=== PATIENT | male | born 1940 | race Caucasian/White ===

== ENCOUNTER 2017-03-14 11:45 | Inpatient (IN) | payer MEDICARE, OTHER ==
[2017-03-14] MEDS ORDERED: Metoprolol Tartrate 5 MG/5 ML SDV IVPUSH ONE ×2 (11:50→13:42)
[2017-03-14] MEDS ORDERED: Famotidine 20 MG/2 ML SDV IVPUSH ONE (11:50)
--- NOTE | 2017-03-14 11:50 | EDM.PDOC ---
ED HPI GENERAL MEDICAL PROBLEM - General Chief Complaint: Cardiovascular Problem Stated Complaint: atrial flutter Time Seen by Provider: 03/14/17 11:50 Source of Information: Reports: Patient, Old Records ([facility] chart/EMR), Other (Limited records from [facility]) History Limitations: Reports: No Limitations - History of Present Illness INITIAL COMMENTS - FREE TEXT/NARRATIVE: The patient was brought to the emergency room via private automobile from clinic nurse from [facility] for evaluation of apparent intermittent tachycardia and nonspecific fatigue, which has been present for about one week. He was evaluated by his regular provider, Anita Benton PA-C, at [facility], with EKG in their facility but no other treatment provided. She did apparently consult the manufacturing shift supervisor who recommended emergency room evaluation and possible admission. Heart rate was in the 70s in their facility with Norvasc apparently discontinued by unknown provider quite some time ago by patient history. He denies any other history of medication noncompliance. The patient denies any chest pain/pressure,dizziness, orthostasis , orthopnea, diaphoresis, paresthesias, or any other anginal-type symptoms. No recent history of abdominal pain, heartburn, nausea, diarrhea, melena, gross hematochezia, or any food intolerance, including fatty foods, etc.. The patient also denies any recent fever, cough, wheezing, dyspnea, etc.. His above symptoms have become somewhat worse since the evening of 03/11. He denies any true pain or discomfort. Onset: Gradual Onset Date: 03/11/17 Duration: Week(s): (Otherwise as above) Location: Reports: Other (No pain) Quality: Reports: Same as Previous Episode Improves with: Reports: None Worsens with: Reports: None Context: Reports: Other (As above) Associated Symptoms: Reports: Other (Nonspecific fatigue as above). Denies: Confusion, Chest Pain, Cough, cough w sputum, Diaphoresis, Fever/Chills, Headaches, Loss of Appetite, Malaise, Nausea/Vomiting, Seizure, Shortness of Breath, Syncope - Related Data Allergies Allergy/AdvReac Type Severity Reaction Status Date / Time No Known Allergies Allergy Verified 02/03/15 17:32 Home Meds: Home Meds Acetaminophen 1,000 mg PO Q6H PRN 03/14/17 [History] Aspirin [Halfprin] 81 mg PO DAILY 03/14/17 [History] Docusate Sodium 250 mg PO DAILY 03/14/17 [History] Furosemide 20 mg PO WITHDINNER 03/14/17 [History] Furosemide 40 mg PO QAM 03/14/17 [History] Metoprolol Succinate [Toprol XL] 50 mg PO BEDTIME 03/14/17 [History] Metoprolol Succinate [Toprol XL] 100 mg PO QAM 03/14/17 [History] Multivitamin [Daily Multiple Vitamin] 1 tab PO DAILY 03/14/17 [History] Nitroglycerin [Nitrostat] 0.4 mg SL ASDIRECTED 03/14/17 [History] Omeprazole 20 mg PO DAILY 03/14/17 [History] Potassium Chloride [Klor-Con 10] 10 meq PO DAILY 03/14/17 [History] Simvastatin [Zocor] 40 mg PO BEDTIME 03/14/17 [History] Warfarin [Coumadin] 2.5 mg PO ASDIRECTED 03/14/17 [History] buPROPion [Wellbutrin SR] 150 mg PO BID 03/14/17 [History] cloNIDine [Catapres] 0.1 mg PO DAILY 03/14/17 [History] Past Medical History HEENT History: Reports: Hard of Hearing, Impaired Vision, Other (See Below) Other HEENT History: Patient wears glasses including reading glasses, bilateral presbycusis no current hearing aid therapy Cardiovascular History: Reports: Afib, Arrhythmia, Bypass, CAD, Heart Failure, High Cholesterol, Hypertension, Other (See Below). Denies: Aneurysm, Blood Clots/VTE/DVT, WI, PTCA, Stents, Syncope Other Cardiovascular History: Sinus tachycardia with first-degree AV block with d-dimer elevation on 02/03/15, with previous first degree AV block and incomplete/ complete right bundle branch block, known previous history of intermittent atrial fibrillation/flutter with current Coumadin therapy Respiratory History: Reports: COPD, Pulmonary Fibrosis, Other (See Below) Other Respiratory History: COPD and pulmonary fibrosis by chest x-ray Gastrointestinal History: Reports: Cholelithiasis, Chronic Constipation, Chronic Diarrhea, Diverticulosis, GERD, Hemorrhoids, Other (See Below). Denies : Celiac Disease, Colon Polyp, Gastritis, GI Bleed, Hepatitis, Hiatal Hernia, Inflammatory Bowel Disease, Irritable Bowel Syndrome, Jaundice, Pancreatitis, PUD Other Gastrointestinal History: Chronic constipation with previous history of Chronic diarrhea with occasional 45 bowel movements per day, diverticulosis by colonoscopy hemorrhoids with chronic mild gross hematochezia, duodenal diverticulum by EGD, LFTs elevation and hyperbilirubinemia on 02/03/15 with possible history of fatty liver Genitourinary History: Reports: BPH, Urinary Incontinence. Denies: Acute Renal Failure, Chronic Renal Insuffiency, Renal Calculus, STD, UTI, Recurrent Musculoskeletal History: Reports: Arthritis, Back Pain, Chronic, Fracture, Neck Pain, Chronic, Osteoarthritis, Other (See Below). 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 Denies: Cerebral Aneurysms, CVA, Migraines, MS, Parkinson's, Seizure, TIA Other Neuro History: Concussion on 08/14/12, chronic headaches secondary to previous meningitis Psychiatric History: Reports: Anxiety, Depression, Psych Hospitalization(s), Suicidal Ideation, Other (See Below). Denies: Abuse, Victim of, ADD, ADHD, Addiction, PTSD, Suicide Attempt Other Psychiatric History: Previous mild suicidal ideation with brief hospitalization in the Endocrine/Metabolic History: Reports: None. Denies: Diabetes, Type I, Diabetes , Type II, Hypothyroidism, IDDM Hematologic History: Reports: None, Other (See Below). Denies: Anemia, Blood Transfusion(s) Other Hematologic History: No blood transfusions including with CABG by his history Immunologic History: Reports: None. Denies: AIDS, HIV, SLE Oncologic (Cancer) History: Reports: Other (See Below). Denies: Colon, Hodgkin' s Lymphoma, Leukemia, Lymphoma, Non-Hodgkin's Lymphoma, Prostate Other Oncologic History: Unknown type of skin cancer in the facial region treated with cryotherapy Dermatologic History: Reports: Venous Stasis Dermatitis. Denies: Eczema, Psoriasis - Infectious Disease History Infectious Disease History: Reports: Chicken Pox, Measles, Meningitis (spinal meningitis in the 1970s). Denies: C-Difficile, Mononucleosis, MRSA, Mumps, Pertussis (Whooping Cough), Rubella, Scarlet Fever, Shingles, TB, VRE - Past Surgical History Head Surgeries/Procedures: Reports: None HEENT Surgical History: Reports: Oral Surgery, Other (See Below). Denies: Adenoidectomy, Cataract Surgery, Eye Surgery, Laser Surgery, LASIK, Myringotomy w Tube(s), Naso-Sinus Surgery, Tonsillectomy Other HEENT Surgeries/Procedures: Multiple teeth extractions Cardiovascular Surgical History: Reports: Coronary Artery Bypass, Other (See Below). Denies: Aneurysm, Carotid Stents, Coronary Artery Stent, Percutaneous Transluminal Angioplasty, Varicose Other Cardiovascular Surgeries/Procedures: CABG 4 on 08/19/14 Respiratory Surgical History: Reports: None. Denies: Thoracentesis GI Surgical History: Reports: Cholecystectomy, Colonoscopy, EGD, Other (See Below). Denies: Appendectomy, Hernia, Abdominal, Hernia, Inguinal, Hernia Repair/Other Other GI Surgeries/Procedures: Laparoscopic cholecystectomy on 02/04/15, EGD on 18/04, last colonoscopy on 10/16/08 - Past Imaging History Past Imaging History: Reports: Angiography (Apparent negative heart catheterization in 2016), CAT Scan (CT of the brain on 08/14/12), MRI (MRI of the lumbar spine on 01/28/10), Stress Testing (Low level cardiac stress test on ), Venous Doppler (Left leg on 01/09/14) Social & Family History - Family History HEENT: Reports: None. Denies: Cataract, Glaucoma, Macular Degeneration, Retinal Detachment Cardiac: Reports: CAD, Heart Failure, High Cholesterol, WI, Other (See Below). Denies: Afib, Aneurysm, Arrhythmia, Blood Clots/VTE/DVT, Bypass, Hypertension, Pacemaker, PVD/COD, Stent, Syncope Other Cardiac Family History: Father with fatal WI and CHF likely secondary to renal failure and intolerance of dialysis at age 81, mother with fatal WI at age 79, brother with fatal WI at about age 83, brother with fatal WI in his 70s brother with fatal WI at age 52 mother with hyperlipidemia Respiratory: Reports: None. Denies: COPD, PE, Pneumothorax, Sleep Apnea GI: Reports: None. Denies: Celiac Disease, Colon Polyps, GERD, GI bleed, Inflammatory Bowel Disease, Irritable Bowel Syndrome, PUD : Reports: Dialysis, Renal Disease/Insufficiency, Other (See Below) Other Family History: Father with acute renal failure and unsuccessful dialysis OBGYN: Reports: None Musculoskeletal: Reports: None. Denies: Gout, RA, SLE Neurological: Reports: Alzheimers Disease, Dementia, Other (See Below). Denies : CVA, Migraines, MS, Parkinson's, Seizure, TIA Other Neurological Family History: Sister with fatal with dementia in her 70s Psychiatric: Reports: None. Denies: Abuse, Victim of, ADD, ADHD, Anxiety, Depression, Psych Hospitalization(s), PTSD, Suicide Attempt Endocrine/Metabolic: Reports: Hypothyroidism, Other (See Below). Denies: Diabetes, Type I, Diabetes, type II Other Endocrine/Metabolic Family History: Sister with hypothyroidism Hematologic: Reports: None. Denies: Anemia, SLE Immunologic: Reports: None. Denies: AIDS, HIV, SLE Dermatologic: Reports: None. Denies: Eczema, Psoriasis Oncologic: Reports: Lung, Prostate, Other (See Below). Denies: Colon, Hodgkin' s Lymphoma, Leukemia, Lymphoma, Non-Hodgkin's Lymphoma, Pancreatic, Skin Other Oncologic Family History: Sister with fatal lung cancer in her late 60s with no previous tobacco use, brother with prostate cancer in his 70s however he from an WI as above - Tobacco Use Smoking Status *Q: Never Smoker Tobacco Use Within Last Twelve Months: No Smoking Cessation Information Provided To Patient: No Second Hand Smoke Exposure: No Second Hand Smoke Education Provided: No - Caffeine Use Caffeine Use: Reports: Coffee (Occasional 2 times per month), Soda (3 sodas per week). Denies: Energy Drinks, Tea - Alcohol Use Alcohol Use History: No Days Per Week of Alcohol Use: 0 (No previous DWIs, etc.) Number of Drinks Per Day: 1 (Usually beer on a monthly basis) Total Drinks Per Week: 0 Alcohol Use in Last Twelve Months: Yes Alcohol Use Frequency: Monthly - Recreational Drug Use Recreational Drug Use: No Drug Use in Last 12 Months: No Recreational Drug Type: Denies: Amphetamines (Speed), Cocaine, Inhalants (Glues , Solvents, Aerosols), LSD (Acid), Marijuana/Hashish, Methamphetamine, Morphine - Living Situation & Occupation Living situation: Reports: (1985, 5 children), with Family (13-year- old son) 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 Denies: Fever HEENT: Reports: Hearing Loss (Stable chronic). Denies: Contact Lenses, Dental Pain, Ear Discharge, Ear Pain, Eye Pain, Glasses, Rhinitis, Sinus Problem, Throat Pain, Throat Swelling, Vertigo, Vision Change Respiratory: Reports: No Symptoms. Denies: Shortness of Breath, Wheezing, Pleuritic Chest Pain, Cough Cardiovascular: Reports: Edema (Stable chronic), Palpitations. Denies: Chest Pain, Blood Pressure Problem, Claudication, Dyspnea on Exertion, Lightheadedness , Orthopnea, PND, Syncope Endocrine: Reports: Fatigue GI/Abdominal: Reports: No Symptoms. Denies: Abdominal Pain, Anorexia, Black Stool, Bloody Stool, Constipation, Diarrhea, Decreased Appetite, Difficulty Swallowing, Distension, Flatus, Hematochezia, Melena, Nausea, Stool Incontinence , Vomiting : Reports: No Symptoms. Denies: Discharge, Dysuria, Flank Pain, Frequency, Hematuria, Incontinence, Urgency, Urinary Retention Musculoskeletal: Reports: No Symptoms. Denies: Neck Pain, Shoulder Pain, Arm Pain, Back Pain, Leg Pain Skin: Reports: No Symptoms. Denies: Diaphoresis, Bruising, Wound Neurological: Reports: Numbness (Stable peripheral neuropathy), Paresthesia, Tingling. Denies: Confusion, Dizziness, Headache, Seizure, Syncope, Tremors, Trouble Speaking, Difficulty Walking, Weakness, Gait Disturbance Psychiatric: Reports: No Symptoms. Denies: Agitation, Anxiety, Confusion, Cravings, Depression, Hallucinations, Homicidal Ideation, Suicidal Ideation Hematologic/Lymphatic: Reports: No Symptoms Immunologic: Reports: No Symptoms ED EXAM, GENERAL - Physical Exam Exam: See Below Exam Limited By: No Limitations General Appearance: Alert, WD/WN, No Apparent Distress Eye Exam: Bilateral Eye: EOMI, Normal Inspection (No nystagmus), PERRL Ears: Normal External Exam, Normal Canal, Normal TMs, Hearing Loss (Stable bilateral moderate presbycusis with no hearing aids) Nose: Normal Inspection, Normal Mucosa, No Blood Throat/Mouth: Normal Inspection, Normal Lips, Normal Gums, Normal Oropharynx, Normal Voice, No Airway Compromise. No: Normal Teeth (Multiple missing teeth with no acute caries), Dysphagia, Inflammation, Perioral Cyanosis Head: Atraumatic, Normocephalic. No: Facial Swelling, Facial Tenderness, Sinus Tenderness Neck: Normal Inspection, Supple, Non-Tender, Full Range of Motion, Carotid Bruit (Mild bilateral carotid bruits). No: Limited Range of Motion, Lymphadenopathy (L), Lymphadenopathy (R), Thyromegaly Respiratory/Chest: No Respiratory Distress, Lungs Clear, Normal Breath Sounds, No Accessory Muscle Use, Chest Non-Tender. No: Rales, Pleural Rub, Retractions Cardiovascular: Normal Peripheral Pulses, No Gallop, No JVD, No Murmur, No Rub, Irregularly Irregular. No: Regular Rate, Rhythm, No Edema (Dependent edema as below), Bradycardia, Tachycardia, Diastolic Murmur, Systolic Murmur, Gallop/S3, Gallop/S4, Friction Rub Peripheral Pulses: 4+: Radial (L), Radial (R), Dorsalis Pedis (L), Dorsalis Pedis (R) GI/Abdominal: Normal Bowel Sounds, Soft, Non-Tender, No Organomegaly, No Distention, No Abnormal Bruit, No Mass, Pelvis Stable, Other (Obese) (Male) Exam: Deferred Rectal (Males) Exam: Deferred Back Exam: Normal Inspection, Full Range of Motion. No: CVA Tenderness (L), CVA Tenderness (R), Muscle Spasm Extremities: Normal Range of Motion, Non-Tender, Normal Capillary Refill, Pedal Edema (+1 bilateral pedal/pretibial edema with secondary mild to moderate venous stasis dermatitis). No: No Pedal Edema, Shaniqua's Sign Neurological: Alert, Oriented, CN II-XII Intact, Normal Cognition, Normal Gait, Normal Reflexes (Negative Babinski's), No Motor/Sensory Deficits Psychiatric: Normal Affect, Normal Mood Skin Exam: Warm, Dry, Intact, Normal Color, No Rash. No: Ecchymosis, Lymphangitis, Petechiae, Wound/Incision Lymphatic: No Adenopathy EKG INTERPRETATION EKG Date: 03/14/17 Time: 12:02 Rhythm: A-Flutter (Recurrent/new since last EKG) [place]: Normal (Left cardiac axis) P-Wave: Variable QRS: Other (QRS interval of 0.11 seconds representing an incomplete bifascicular bundle branch block which is a change from previous incomplete right bundle branch block) ST-T: Other (Nonspecific downsloping ST depressions in leads 1, aVL and V6 consistent with possible new lateral wall ischemia) QT: Prolonged (QT/QTc of 426/497) Comparison: Change From Previous EKG (As above since 02/03/15) EKG Interpretation Comments: 1. Possible new wall cardiac ischemia 2. New complete bifascicular bundle-branch block with history of previous incomplete right bundle branch block 3. Atrial flutter Course - Vital Signs Last Recorded V/S: Last Vital Signs Temp 36.5 C 03/14/17 12:00 Pulse 52 L 03/14/17 14:22 Resp 16 03/14/17 14:22 BP 153/87 H 03/14/17 14:22 Pulse Ox 100 03/14/17 14:22 Vital Signs - 24 hr 03/14/17 03/14/17 03/14/17 12:00 12:05 12:15 Temperature [ 36.5 C Temporal] Pulse, 69 Peripheral Pulse, 75 75 Peripheral [ Left Pulse Oximetry] Respiratory 20 18 Rate Blood Pressure 155/84 H Blood Pressure 155/84 H 157/77 H [Left Upper Arm ] O2 Sat by Pulse 99 100 Oximetry 03/14/17 03/14/17 03/14/17 12:30 12:45 13:00 Temperature [ Temporal] Pulse, Peripheral Pulse, 60 61 52 L Peripheral [ Left Pulse Oximetry] Respiratory 14 16 17 Rate Blood Pressure Blood Pressure 144/70 H [Left Upper Arm ] O2 Sat by Pulse 100 100 100 Oximetry 03/14/17 03/14/17 03/14/17 13:15 13:36 13:49 Temperature [ Temporal] Pulse, Peripheral Pulse, 52 L 58 L 64 Peripheral [ Left Pulse Oximetry] Respiratory 17 19 20 Rate Blood Pressure Blood Pressure 135/76 156/84 H 185/83 H [Left Upper Arm ] O2 Sat by Pulse 100 100 100 Oximetry 03/14/17 03/14/17 13:51 14:22 Temperature [ Temporal] Pulse, 63 Peripheral Pulse, 52 L Peripheral [ Left Pulse Oximetry] Respiratory 16 Rate Blood Pressure 185/83 H Blood Pressure 153/87 H [Left Upper Arm ] O2 Sat by Pulse 100 Oximetry - Orders/Labs/Meds Orders: Active Orders 24 hr Category Date Time Status Cardiac Monitoring [RC] . DIRECTED Care 03/14/17 11:50 Active EKG Documentation Completion [RC] ASDIRECTED Care 03/14/17 11:50 Active Oxygen Therapy, ED [RC] CONTINUOUS Care 03/14/17 11:50 Active Peripheral IV Care [RC] . DIRECTED Care 03/14/17 11:50 Active Pulse Oximetry [RC] CONTINUOUS Care 03/14/17 11:50 Active Up With Assistance [RC] PFP Care 03/14/17 11:50 Active Vital Signs [RC] PFP Care 03/14/17 11:50 Active Nothing per Oral Now Diet [DIET] Diet 03/14/17 Breakfast Active Chest 1V Frontal [CR] Stat Exams 03/14/17 11:50 Taken Sodium Chloride 0.9% [Saline Flush] Med 03/14/17 11:50 Active 10 ml FLUSH ASDIRECTED PRN Obtain Past Medical Record [OM.PC] Urgent Oth 03/14/17 11:50 Active Peripheral IV Insertion Adult [OM.PC] Stat Oth 03/14/17 11:50 Ordered Resuscitation Status Stat Resus Stat 03/14/17 11:50 Ordered Medication Orders Sodium Chloride (Saline Flush) 10 ml FLUSH ASDIRECTED PRN PRN Reason: Keep Vein Open Last Admin: 03/14/17 13:25 Dose: 10 ml Admin: 03/14/17 12:06 Dose: 10 ml Labs: Laboratory Tests 03/14/17 03/14/17 03/14/17 Range/Units 12:07 12:07 12:07 WBC 7.8 (4.0-10.2) K/uL RBC 5.32 (4.33-5.41) M/uL Hgb 15.8 (13.1-16.8) g/dL Hct 45.1 (39.0-49.0) % MCV 84.8 D (84.0-98.0) fL MCH 29.7 (28.2-33.3) pg MCHC 35.0 (31.7-36.0) g/dL RDW 14.5 H (11.2-14.1) % Plt Count 138 L (150-350) K/uL Neut % (Auto) 38.6 L (45.0-80.0) % Lymph % (Auto) 49.9 (10.0-50.0) % [place] % (Auto) 9.5 (2.0-14.0) % Eos % (Auto) 1.7 (0.0-5.0) % Baso % (Auto) 0.3 (0.0-2.0) % Neut # (Auto) 3.02 (1.40-7.00) K/uL Lymph # (Auto) 3.89 H (0.50-3.50) K/uL [place] # (Auto) 0.74 (0.00-1.00) K/uL Eos # (Auto) 0.13 (0.00-0.50) K/uL Baso # (Auto) 0.02 (0.00-0.20) K/uL PT 32.4 H D (9.8-11.7) SEC INR 2.9 APTT 37.6 H (23.5-30.0) SEC D-Dimer, Quantitative < 100 (0-400) ng/mL Sodium (136-145) mmol/L Potassium (3.5-5.1) mmol/L Chloride (98-107) mmol/L Carbon Dioxide (21.0-32.0) mmol/L BUN (7-18) mg/dL Creatinine (0.51-1.17) mg/dL Est Cr Clr Drug Dosing Estimated GFR (MDRD) mL/min Glucose (74-106) mg/dL Lactic Acid (0.4-2.0) mmol/L Uric Acid (2.6-7.2) mg/dL Calcium (8.5-10.1) mg/dL Magnesium (1.8-2.4) mg/dL Total Bilirubin (0.2-1.0) mg/dL AST (15-37) U/L ALT (12-78) U/L Alkaline Phosphatase (46-116) IU/L Creatine Kinase (26-308) U/L Creatine Kinase Index (0.0-2.5) % CK-MB (CK-2) (0.00-3.60) ng/mL Troponin I (0.000-0.056) ng/mL Qmd-[id number]-[id number] Pept (0-125) pg/mL Total Protein (6.4-8.2) g/dL Albumin (3.4-5.0) g/dL TSH, Ultra Sensitive (0.358-3.740) mIU/mL 03/14/17 03/14/17 Range/Units 12:07 12:07 WBC (4.0-10.2) K/uL RBC (4.33-5.41) M/uL Hgb (13.1-16.8) g/dL Hct (39.0-49.0) % MCV (84.0-98.0) fL MCH (28.2-33.3) pg MCHC (31.7-36.0) g/dL RDW (11.2-14.1) % Plt Count (150-350) K/uL Neut % (Auto) (45.0-80.0) % Lymph % (Auto) (10.0-50.0) % [place] % (Auto) (2.0-14.0) % Eos % (Auto) (0.0-5.0) % Baso % (Auto) (0.0-2.0) % Neut # (Auto) (1.40-7.00) K/uL Lymph # (Auto) (0.50-3.50) K/uL [place] # (Auto) (0.00-1.00) K/uL Eos # (Auto) (0.00-0.50) K/uL Baso # (Auto) (0.00-0.20) K/uL PT (9.8-11.7) SEC INR APTT (23.5-30.0) SEC D-Dimer, Quantitative (0-400) ng/mL Sodium 140 (136-145) mmol/L Potassium 4.0 (3.5-5.1) mmol/L Chloride 107 (98-107) mmol/L Carbon Dioxide 26.4 (21.0-32.0) mmol/L BUN 12 (7-18) mg/dL Creatinine 0.81 (0.51-1.17) mg/dL Est Cr Clr Drug Dosing TNP Estimated GFR (MDRD) > 60 mL/min Glucose 93 (74-106) mg/dL Lactic Acid 0.5 (0.4-2.0) mmol/L Uric Acid 5.1 (2.6-7.2) mg/dL Calcium 8.7 (8.5-10.1) mg/dL Magnesium 2.1 (1.8-2.4) mg/dL Total Bilirubin 0.7 (0.2-1.0) mg/dL AST 24 (15-37) U/L ALT 27 (12-78) U/L Alkaline Phosphatase 63 (46-116) IU/L Creatine Kinase 131 (26-308) U/L Creatine Kinase Index 2.1 (0.0-2.5) % CK-MB (CK-2) 2.80 (0.00-3.60) ng/mL Troponin I 0.040 (0.000-0.056) ng/mL [id number]-[id number] Pept 1441 H (0-125) pg/mL Total Protein 7.3 (6.4-8.2) g/dL Albumin 3.6 (3.4-5.0) g/dL TSH, Ultra Sensitive 1.691 (0.358-3.740) mIU/mL Meds: Medications Generic Name Dose Route Start Last Admin Trade Name Freq PRN Reason Stop Dose Admin Sodium Chloride 10 ml 03/14/17 11:50 03/14/17 13:25 Saline Flush FLUSH 10 ml ASDIRECTED PRN Administration Keep Vein Open Discontinued Medications Generic Name Dose Route Start Last Admin Trade Name Freq PRN Reason Stop Dose Admin Famotidine 40 mg 03/14/17 11:50 03/14/17 12:05 Pepcid IVPUSH 03/14/17 11:51 40 mg ONETIME ONE Administration Furosemide 60 mg 03/14/17 12:54 03/14/17 13:26 Lasix IVPUSH 03/14/17 12:55 60 mg NOW ONE Administration Metoprolol Tartrate 2.5 mg 03/14/17 11:50 03/14/17 12:05 Lopressor IVPUSH 03/14/17 11:51 2.5 mg ONETIME ONE Administration Metoprolol Tartrate 2.5 mg 03/14/17 13:42 03/14/17 13:51 Lopressor IVPUSH 03/14/17 13:43 2.5 mg ONETIME ONE Administration - Radiology Interpretation Free Text/Narrative:: manager monitoring showed atrial fibrillation/flutter with average heart rate on arrival in the 70s with no other ectopy or arrhythmia, final heart rate prior to admission in the low to mid 50s after medical therapy as above. Note brief episode of mild tachycardia in the 100s after first dose of IV Lopressor with resolution after second IV dose with patient now in normal sinus rhythm Chest x-ray, portable, shows evidence of status post medial sternotomy with mild to moderate cardiomegaly and centralized CHF, and mildly elevated right hemidiaphragm. Moderate COPD and pulmonary fibrotic changes present with no pulmonary infiltrates, pneumothorax, etc. Departure - Departure Time of Disposition: 14:45 Disposition: Admitted As Inpatient 68 Condition: Good Clinical Impression: Mixed anxiety depressive disorder, Peptic reflux disease CHF (congestive heart failure) Qualifiers: Congestive heart failure type: unspecified congestive heart failure type Congestive heart failure chronicity: acute on chronic Qualified Code(s): I50.9 - Heart failure, unspecified Hypertension Qualifiers: Hypertension type: essential hypertension Qualified Code(s): I10 - Essential ( primary) hypertension Hyperlipidemia Qualifiers: Hyperlipidemia type: unspecified Qualified Code(s): E78.5 - Hyperlipidemia, unspecified Atrial flutter Qualifiers: Atrial flutter type: typical Qualified Code(s): I48.3 - Typical atrial flutter COPD (chronic obstructive pulmonary disease) Qualifiers: COPD type: emphysema Emphysema type: panlobular Qualified Code(s): J43.1 - Panlobular emphysema Coronary artery disease Qualifiers: Coronary Disease-Associated Artery/Lesion type: bypass graft [place] vs. transplanted heart: [place] heart Associated angina: without angina Qualified Code(s): I25.810 - Atherosclerosis of coronary artery bypass graft(s) without angina pectoris - Problem List & Annotations (1) Atrial flutter SNOMED Code(s): 8198873 Code(s): I48.92 - UNSPECIFIED ATRIAL FLUTTER Status: Acute Priority: High Current Visit: Yes Annotation/Comment:: Overall good response to 2 doses of IV Lopressor as above. Continue rhythm evaluation and medication adjustment during this hospitalization. Consider reinitiation of Norvasc. INR therapeutic Qualifiers: Atrial flutter type: typical Qualified Code(s): I48.3 - Typical atrial flutter (2) Coronary artery disease SNOMED Code(s): 42967642 Code(s): I25.10 - ATHSCL HEART DISEASE OF [place] CORONARY ARTERY W/O ANG PCTRS Status: Chronic Priority: Medium Current Visit: Yes Annotation/ Comment:: Chest pain protocol initiated upon patient's arrival to the emergency room, although ASA and Brilinta were not given secondary to patient's Coumadin therapy, which is currently therapeutic as above. Cardiology consultation on an as-needed basis. No true chest pain or anginal type symptoms, despite recent nonspecific fatigue recently as above. Further cardiology consultation and/or workup recommended on an outpatient basis, including possible Cardiolite Stress test. Initiate standard rule out [place] orders Qualifiers: Coronary Disease-Associated Artery/Lesion type: bypass graft [place] vs. transplanted heart: [place] heart Associated angina: without angina Qualified Code(s): I25.810 - Atherosclerosis of coronary artery bypass graft(s) without angina pectoris (3) CHF (congestive heart failure) SNOMED Code(s): 12297145 Code(s): I50.9 - HEART FAILURE, UNSPECIFIED Status: Acute Priority: High Current Visit: Yes Annotation/Comment:: Echocardiogram tomorrow. IV Lasix initiated in the emergency room. Continue to observe renal status closely Qualifiers: Congestive heart failure type: unspecified congestive heart failure type Congestive heart failure chronicity: acute on chronic Qualified Code(s): I50.9 - Heart failure, unspecified (4) COPD (chronic obstructive pulmonary disease) SNOMED Code(s): 44316273 Code(s): J44.9 - CHRONIC OBSTRUCTIVE PULMONARY DISEASE, UNSPECIFIED Status : Chronic Priority: Medium Current Visit: Yes Annotation/Comment:: COPD and pulmonary fibrosis by chest x-ray with no recent fever, bronchitic type symptoms, etc. Qualifiers: COPD type: emphysema Emphysema type: panlobular Qualified Code(s): J43.1 - Panlobular emphysema (5) Hyperlipidemia SNOMED Code(s): 63174706 Code(s): E78.5 - HYPERLIPIDEMIA, UNSPECIFIED Status: Chronic Priority: Medium Current Visit: Yes Annotation/Comment:: Under therapy. Lipid panel in the a.m. Qualifiers: Hyperlipidemia type: unspecified Qualified Code(s): E78.5 - Hyperlipidemia , unspecified (6) Hypertension SNOMED Code(s): 15985206 Code(s): I10 - ESSENTIAL (PRIMARY) HYPERTENSION Status: Chronic Priority : Medium Current Visit: Yes Annotation/Comment:: Blood Pressure somewhat elevated initially on arrival with overall good response to medical therapy as above Qualifiers: Hypertension type: essential hypertension Qualified Code(s): I10 - Essential (primary) hypertension (7) Mixed anxiety depressive disorder SNOMED Code(s): 476048864 Code(s): F41.8 - OTHER SPECIFIED ANXIETY DISORDERS Status: Chronic Priority: Medium Current Visit: Yes Annotation/Comment:: Stable by history (8) Peptic reflux disease SNOMED Code(s): 24807637 Code(s): K21.9 - GASTRO-ESOPHAGEAL REFLUX DISEASE WITHOUT ESOPHAGITIS Status: Chronic Priority: Medium Current Visit: Yes Annotation/Comment:: Stable by history with high-dose IV Pepcid given as GI prophylaxis (9) Osteoarthritis SNOMED Code(s): 581928428 Code(s): M19.90 - UNSPECIFIED OSTEOARTHRITIS, UNSPECIFIED SITE Status: Chronic Priority: Medium Current Visit: Yes Annotation/Comment:: Stable by history Qualifiers: Osteoarthritis location: multiple joints Osteoarthritis type: primary Qualified Code(s): M15.0 - Primary generalized (osteo)arthritis - Problem List Review Problem List Initiated/Reviewed/Updated: Yes - My Orders Last 24 Hours: My Active Orders 03/14/17 11:50 Cardiac Monitoring [RC] . DIRECTED EKG Documentation Completion [RC] ASDIRECTED Oxygen Therapy, ED [RC] CONTINUOUS Peripheral IV Care [RC] . DIRECTED Pulse Oximetry [RC] CONTINUOUS Up With Assistance [RC] PFP Vital Signs [RC] PFP Chest 1V Frontal [CR] Stat Sodium Chloride 0.9% [Saline Flush] 10 ml FLUSH ASDIRECTED PRN Obtain Past Medical Record [OM.PC] Urgent Peripheral IV Insertion Adult [OM.PC] Stat Resuscitation Status Stat 03/14/17 Breakfast Nothing per Oral Now Diet [DIET] - Assessment/Plan Admission H&P: Please use this note as an admission H&P Last 24 Hours: My Active Orders 03/14/17 11:50 Cardiac Monitoring [RC] . DIRECTED EKG Documentation Completion [RC] ASDIRECTED Oxygen Therapy, ED [RC] CONTINUOUS Peripheral IV Care [RC] . DIRECTED Pulse Oximetry [RC] CONTINUOUS Up With Assistance [RC] PFP Vital Signs [RC] PFP Chest 1V Frontal [CR] Stat Sodium Chloride 0.9% [Saline Flush] 10 ml FLUSH ASDIRECTED PRN Obtain Past Medical Record [OM.PC] Urgent Peripheral IV Insertion Adult [OM.PC] Stat Resuscitation Status Stat 03/14/17 Breakfast Nothing per Oral Now Diet [DIET] Assessment:: As above Plan: As above. Extensive precautions were given to the patient, who is in agreement with the treatment plan. The patient will require about 3-4 days of inpatient/ acute care secondary to multiple health problems as above.
[2017-03-14] MEDS: Sodium Chloride 0.9% 10 ML Syringe FLUSH PRN ×3 (12:06→19:44)
[2017-03-14 12:41] LABS: CHLORIDE,CL 107 mmol/L (98-107); SODIUM,NA 140 mmol/L (136-145)
[2017-03-14] MEDS ORDERED: Furosemide 40 MG/4 ML VIAL IVPUSH ONE (12:54)
[2017-03-14] MEDS ORDERED: Acetaminophen 325 MG Tab PO PRN (16:00)
[2017-03-14] MEDS ORDERED: Temazepam 15 MG Cap PO PRN (16:07)
[2017-03-14] MEDS ORDERED: Sodium Chloride 0.9% 10 ML Syringe FLUSH PRN (16:07)
[2017-03-14] MEDS: Warfarin 2.5 MG Tab PO SCH (17:35)
[2017-03-14] MEDS: Potassium Chloride 20 MEQ Tab.ER PO SCH (17:36)
[2017-03-14] MEDS ORDERED: buPROPion 150 MG Tab.SR PO SCH (18:00)
[2017-03-14] MEDS: Furosemide 40 MG/4 ML VIAL IVPUSH SCH (19:44)
[2017-03-14] MEDS ORDERED: Simvastatin 20 MG Tab PO SCH (20:00)
[2017-03-15] MEDS: Furosemide 40 MG/4 ML VIAL IVPUSH SCH ×3 (03:59→19:28)
[2017-03-15] MEDS: Docusate Sodium 100 MG Cap PO SCH (07:37)
[2017-03-15] MEDS: Potassium Chloride 20 MEQ Tab.ER PO SCH ×3 (07:37→17:32)
[2017-03-15] MEDS: cloNIDine 0.1 MG Tab PO SCH (07:38)
[2017-03-15] MEDS: Metoprolol Succinate 50 MG Tab.ER PO SCH (07:38)
[2017-03-15] MEDS: buPROPion 150 MG Tab.SR PO SCH ×2 (07:38→12:08)
[2017-03-15 07:45] LABS: CHLORIDE,CL 104 mmol/L (98-107); SODIUM,NA 142 mmol/L (136-145)
--- NOTE | 2017-03-15 10:41 | PCM.PN ---
- General Info Date of Service: 03/15/17 Admission Dx/Problem (Free Text): 1. Atrial flutter with rapid ventricular response 2. CHF Subjective Update: As below Functional Status: Reports: Pain Controlled, Tolerating Diet, Ambulating, Urinating. Denies: New Symptoms (Nonspecific right lower quadrant occasional abdominal cramping yesterday evening, which the patient rated at 4/10, however no symptoms this morning), Incentive Spirometry Pain Score: 4 - Review of Systems General: Reports: No Symptoms, Appetite (Appetite good). Denies: Fever, Weakness, Fatigue, Malaise, Chills, Night Sweats HEENT: Reports: No Symptoms. Denies: Ear Pain, Eye Pain, Headaches, Post Nasal Drip, Sinus Congestion, Sore Throat, Rhinitis, Visual Changes Pulmonary: Reports: No Symptoms. Denies: Shortness of Breath, Pleuritic Chest Pain, Cough, Sputum Cardiovascular: Reports: Palpitations (Yesterday evening with mild atrial flutter with no tachycardia by laboratory monitor as below), Edema (Stable dependent). Denies: Chest Pain, Dyspnea on Exertion, Orthopnea, PND, Lightheadedness Gastrointestinal: Reports: Abdominal Pain (Nonspecific as above with normal bowel movement both yesterday p.m. and earlier this morning by patient history) . Denies: Constipation, Decreased Appetite, Diarrhea, Difficulty Swallowing, Flatus, Hematochezia, Melena, Nausea, Vomiting Genitourinary: Reports: No Symptoms. Denies: Dysuria, Frequency, Burning, Pain , Urgency, Incontinence, Hematuria, Retention, Flank Pain Musculoskeletal: Reports: No Symptoms. Denies: Neck Pain, Shoulder Pain, Arm Pain, Back Pain, Leg Pain Skin: Reports: No Symptoms. Denies: Pallor, Diaphoresis, Bruising Neurological: Reports: No Symptoms. Denies: Confusion, Dizziness, Headache, Numbness, Paresthesia, Tingling, Weakness Psychiatric: Reports: No Symptoms. Denies: Confusion, Depression, Anxiety, Agitation, Hallucinations - Patient Data Vitals - Most Recent: Last Vital Signs Temp 36.7 C 03/15/17 08:00 Pulse 59 L 03/15/17 08:00 Resp 16 03/15/17 08:00 BP 133/68 03/15/17 08:00 Pulse Ox 95 03/15/17 08:00 Weight - Most Recent: 109.134 kg I&O - Last 24 Hours: Intake & Output 03/14/17 03/15/17 03/15/17 22:59 06:59 14:59 Intake Total 240 Output Total 2500 900 Balance -2260 -900 Imaging Impressions - Last 24 Hours: laboratory monitor showed normal sinus rhythm with exception of occasional bradycardia with average heart rates in the 50s to 60s, brief episode of atrial flutter with heart rate in the 70s at about 11:44 PM this past evening Verbal report from the animal laboratory technician of echocardiogram shows a decreased ejection fraction of only 32-37 percent with mild mitral valve insufficiency and aortic valve insufficiency, however no other abnormalities Lab Results Last 24 Hours: Laboratory Results - last 24 hr 03/14/17 03/15/17 03/15/17 Range/Units 16:35 00:15 06:50 WBC 7.7 (4.0-10.2) K/uL RBC 5.50 H (4.33-5.41) M/uL Hgb 16.5 (13.1-16.8) g/dL Hct 47.1 (39.0-49.0) % MCV 85.6 (84.0-98.0) fL MCH 30.0 (28.2-33.3) pg MCHC 35.0 (31.7-36.0) g/dL RDW 14.8 H (11.2-14.1) % Plt Count 133 L (150-350) K/uL Neut % (Auto) 48.8 (45.0-80.0) % Lymph % (Auto) 38.1 (10.0-50.0) % [place] % (Auto) 11.1 (2.0-14.0) % Eos % (Auto) 1.6 (0.0-5.0) % Baso % (Auto) 0.4 (0.0-2.0) % Neut # (Auto) 3.77 (1.40-7.00) K/uL Lymph # (Auto) 2.94 (0.50-3.50) K/uL [place] # (Auto) 0.86 (0.00-1.00) K/uL Eos # (Auto) 0.12 (0.00-0.50) K/uL Baso # (Auto) 0.03 (0.00-0.20) K/uL Sodium (136-145) mmol/L Potassium (3.5-5.1) mmol/L Chloride (98-107) mmol/L Carbon Dioxide (21.0-32.0) mmol/L BUN (7-18) mg/dL Creatinine (0.51-1.17) mg/dL Est Cr Clr Drug Dosing mL/min Estimated GFR (MDRD) mL/min Glucose (74-106) mg/dL Hemoglobin A1c (4.3-5.7) % Calcium (8.5-10.1) mg/dL Total Bilirubin (0.2-1.0) mg/dL AST (15-37) U/L ALT (12-78) U/L Alkaline Phosphatase (46-116) IU/L Creatine Kinase 136 132 (26-308) U/L Creatine Kinase Index 1.8 2.0 (0.0-2.5) % CK-MB (CK-2) 2.50 2.60 (0.00-3.60) ng/mL Troponin I 0.040 0.041 (0.000-0.056) ng/mL Iva-B-Blhknprbtuw Pept (0-125) pg/mL Total Protein (6.4-8.2) g/dL Albumin (3.4-5.0) g/dL Triglycerides (30-150) mg/dL Cholesterol (100-200) mg/dL LDL Cholesterol, Calc (0-100) mg/dL HDL Cholesterol (40-60) mg/dL 03/15/17 03/15/17 Range/Units 06:50 06:50 WBC (4.0-10.2) K/uL RBC (4.33-5.41) M/uL Hgb (13.1-16.8) g/dL Hct (39.0-49.0) % MCV (84.0-98.0) fL MCH (28.2-33.3) pg MCHC (31.7-36.0) g/dL RDW (11.2-14.1) % Plt Count (150-350) K/uL Neut % (Auto) (45.0-80.0) % Lymph % (Auto) (10.0-50.0) % [place] % (Auto) (2.0-14.0) % Eos % (Auto) (0.0-5.0) % Baso % (Auto) (0.0-2.0) % Neut # (Auto) (1.40-7.00) K/uL Lymph # (Auto) (0.50-3.50) K/uL [place] # (Auto) (0.00-1.00) K/uL Eos # (Auto) (0.00-0.50) K/uL Baso # (Auto) (0.00-0.20) K/uL Sodium 142 (136-145) mmol/L Potassium 4.1 (3.5-5.1) mmol/L Chloride 104 (98-107) mmol/L Carbon Dioxide 29.6 (21.0-32.0) mmol/L BUN 11 (7-18) mg/dL Creatinine 0.95 (0.51-1.17) mg/dL Est Cr Clr Drug Dosing 74.98 mL/min Estimated GFR (MDRD) > 60 mL/min Glucose 112 H (74-106) mg/dL Hemoglobin A1c 5.6 (4.3-5.7) % Calcium 9.2 (8.5-10.1) mg/dL Total Bilirubin 1.0 (0.2-1.0) mg/dL AST 23 (15-37) U/L ALT 28 (12-78) U/L Alkaline Phosphatase 59 (46-116) IU/L Creatine Kinase 129 (26-308) U/L Creatine Kinase Index 1.9 (0.0-2.5) % CK-MB (CK-2) 2.40 (0.00-3.60) ng/mL Troponin I 0.037 (0.000-0.056) ng/mL Kdb-I-Gklirrtihqk Pept 1241 H (0-125) pg/mL Total Protein 7.6 (6.4-8.2) g/dL Albumin 3.7 (3.4-5.0) g/dL Triglycerides 291 H (30-150) mg/dL Cholesterol 209 H (100-200) mg/dL LDL Cholesterol, Calc 121 H (0-100) mg/dL HDL Cholesterol 30 L (40-60) mg/dL Danny Results Last 24 Hours: Microbiology 03/14/17 21:10 Stool Occult Blood (DANNY) - Final Stool / Feces NEGATIVE OCCULT BLOOD Med Orders - Current: Current Medications Acetaminophen (Tylenol) 650 mg PO Q4H PRN PRN Reason: Pain Bupropion HCl (Wellbutrin Sr) 150 mg PO BID@0800,1200 [facility] Last Admin: 03/15/17 07:38 Dose: 150 mg Clonidine HCl (Catapres) 0.1 mg PO DAILY [facility] Last Admin: 03/15/17 07:38 Dose: 0.1 mg Docusate Sodium (Colace) 200 mg PO DAILY [facility] Last Admin: 03/15/17 07:37 Dose: 200 mg Furosemide (Lasix) 40 mg IVPUSH Q8H [facility] Last Admin: 03/15/17 03:59 Dose: 40 mg Metoprolol Succinate (Toprol Xl) 100 mg PO QAM [facility] Last Admin: 03/15/17 07:38 Dose: 100 mg Potassium Chloride (Klor-Con M20) 20 meq PO TID [facility] Last Admin: 03/15/17 07:37 Dose: 20 meq Simvastatin (Zocor) 40 mg PO BEDTIME [facility] Last Admin: 03/14/17 19:44 Dose: 40 mg Sodium Chloride (Saline Flush) 10 ml FLUSH ASDIRECTED PRN PRN Reason: Keep Vein Open Last Admin: 03/14/17 19:44 Dose: 10 ml Sodium Chloride (Saline Flush) 10 ml FLUSH Q12HR PRN PRN Reason: Keep Vein Open Temazepam (Restoril) 15 mg PO BEDTIME PRN PRN Reason: Insomnia Warfarin Sodium (Coumadin) 2.5 mg PO SuTuThSa@1800 [facility] Warfarin Sodium (Coumadin) 5 mg PO MoWeFr@1800 [facility] Last Admin: 03/14/17 17:35 Dose: 5 mg Discontinued Medications Bupropion HCl (Wellbutrin Sr) 150 mg PO BID [facility] Last Admin: 03/14/17 17:37 Dose: Not Given Famotidine (Pepcid) 40 mg IVPUSH ONETIME ONE Stop: 03/14/17 11:51 Last Admin: 03/14/17 12:05 Dose: 40 mg Furosemide (Lasix) 60 mg IVPUSH NOW ONE Stop: 03/14/17 12:55 Last Admin: 03/14/17 13:26 Dose: 60 mg Metoprolol Tartrate (Lopressor) 2.5 mg IVPUSH ONETIME ONE Stop: 03/14/17 11:51 Last Admin: 03/14/17 12:05 Dose: 2.5 mg Metoprolol Tartrate (Lopressor) 2.5 mg IVPUSH ONETIME ONE Stop: 03/14/17 13:43 Last Admin: 03/14/17 13:51 Dose: 2.5 mg - Exam Quality Assessment: Supplemental Oxygen, DVT Prophylaxis. No: Central Line/PICC , Urine Catheter, Skin Breakdown, Restraints General: Alert, Oriented, Cooperative, No Acute Distress HEENT: Pupils Equal, Pupils Reactive, EOMI, Mucous Membr. Moist/[place] Neck: Supple, Trachea Midline, No JVD, No Thyromegaly, Carotid Bruit (Mild bilateral carotid bruits). No: Lymphadenopathy Lungs: Clear to Auscultation, Normal Respiratory Effort. No: Rales, Rhonchi, Rub, Wheezing Cardiovascular: Regular Rate, Regular Rhythm, No Murmurs. No: Gallops, Rubs GI/Abdominal Exam: Normal Bowel Sounds, Soft, Non-Tender, No Organomegaly, No Distention, No Abnormal Bruit, No Mass, Pelvis Stable (Male) Exam: Deferred Back Exam: Normal Inspection, Full Range of Motion. No: CVA Tenderness (L), CVA Tenderness (R), Muscle Spasm Extremities: Normal Inspection, Normal Range of Motion, Non-Tender, No Pedal Edema, Normal Capillary Refill. No: Shaniqua's Sign Peripheral Pulses: 2+: Radial (L), Radial (R), Dorsalis Pedis (L), Dorsalis Pedis (R) Skin: Warm, Dry, Intact. No: Ecchymosis Neurological: No New Focal Deficit, Other (No clinical orthostasis) Psy/Mental Status: Alert, Normal Affect, Normal Mood. No: Agitated, Hallucinations, Withdrawal Symptoms EKG INTERPRETATION EKG Date: 03/15/17 Time: 07:36 Rhythm: Other (Moderate sinus bradycardia) Rate (Beats/Min): 53 [place]: Normal (Neutral versus left cardiac axis) P-Wave: Enlarged (Moderate diffuse biphasic P waves) QRS: RBBB (QRS interval of 0.11 seconds representing incomplete right bundle branch block) ST-T: Other (Nonspecific ST changes with some ST depressions in leads 1 and aVL representing possible lateral wall cardiac ischemia with new Q wave in lead 3) QT: Normal OK/PQ Interval: 0.21 seconds representing a first degree AV block with resolution of previous atrial flutter Comparison: Change From Previous EKG (As above since 03/14/17) EKG Interpretation Comments: 1. Sinus bradycardia 2. Incomplete right bundle branch block 3. Possible lateral wall cardiac ischemia 4. Probable left atrial enlargement 5. First-degree AV block 6. No acute ischemic changes - Problem List & Annotations (1) Atrial flutter SNOMED Code(s): 6719326 Code(s): I48.92 - UNSPECIFIED ATRIAL FLUTTER Status: Acute Priority: High Current Visit: Yes Qualifiers: Atrial flutter type: typical Qualified Code(s): I48.3 - Typical atrial flutter Annotation/Comment:: Improved heart rhythm, although still persistent occasional brief breakthrough atrial flutter without tachycardia as above. Mild bradycardia and first-degree AV block at this time with additional previous right bundle branch block. Enzymes 4 were negative for acute DE. Overall good previous response to 2 doses of IV Lopressor in the emergency room. Continue rhythm evaluation and medication adjustment during this hospitalization. Consider reinitiation of Norvasc versus change to diltiazem, although note current Zocor therapy. Change his Zocor to Lipitor secondary to persistent significant dyslipidemia on today's lipid panel. Blood pressures are under good control at this time. INR therapeutic on admission, although this should be repeated prior to discharge secondary to multiple medication adjustments (2) Coronary artery disease SNOMED Code(s): 14252397 Code(s): I25.10 - ATHSCL HEART DISEASE OF [place] CORONARY ARTERY W/O ANG PCTRS Status: Chronic Priority: Medium Current Visit: Yes Qualifiers: Coronary Disease-Associated Artery/Lesion type: bypass graft [place] vs. transplanted heart: [place] heart Associated angina: without angina Qualified Code(s): I25.810 - Atherosclerosis of coronary artery bypass graft(s) without angina pectoris Annotation/Comment:: Negative workup for acute DE as above. Chest pain protocol was initiated upon patient's arrival to the emergency room, although ASA and Brilinta were not given secondary to patient's Coumadin therapy, which is currently therapeutic as above. Cardiology consultation on an as-needed basis. No true chest pain or anginal type symptoms, despite recent nonspecific fatigue recently as above. Further cardiology consultation and/or workup recommended on an outpatient basis, including possible Cardiolite Stress test. (3) CHF (congestive heart failure) SNOMED Code(s): 68969124 Code(s): I50.9 - HEART FAILURE, UNSPECIFIED Status: Acute Priority: High Current Visit: Yes Qualifiers: Congestive heart failure type: unspecified congestive heart failure type Congestive heart failure chronicity: acute on chronic Qualified Code(s): I50.9 - Heart failure, unspecified Annotation/Comment:: Echocardiogram today with pulmonary results as above tomorrow. IV Lasix initiated in the emergency room and will be continued at this time secondary to minimal improvement of his BNP. Continue to observe renal status closely. Chest x-ray in about 2 days at time of hospital discharge (4) COPD (chronic obstructive pulmonary disease) SNOMED Code(s): 02294693 Code(s): J44.9 - CHRONIC OBSTRUCTIVE PULMONARY DISEASE, UNSPECIFIED Status : Chronic Priority: Medium Current Visit: Yes Qualifiers: COPD type: emphysema Emphysema type: panlobular Qualified Code(s): J43.1 - Panlobular emphysema Annotation/Comment:: COPD and pulmonary fibrosis by chest x-ray with no recent fever, bronchitic type symptoms, etc. (5) Hyperlipidemia SNOMED Code(s): 45389032 Code(s): E78.5 - HYPERLIPIDEMIA, UNSPECIFIED Status: Chronic Priority: Medium Current Visit: Yes Qualifiers: Hyperlipidemia type: mixed hyperlipidemia Qualified Code(s): E78.2 - Mixed hyperlipidemia Annotation/Comment:: Under therapy. Lipid panel shows significant dyslipidemia today with initiation of Lipitor as above. His glycosylated hemoglobin was good this morning (6) Hypertension SNOMED Code(s): 86867127 Code(s): I10 - ESSENTIAL (PRIMARY) HYPERTENSION Status: Chronic Priority : Medium Current Visit: Yes Qualifiers: Hypertension type: essential hypertension Qualified Code(s): I10 - Essential (primary) hypertension Annotation/Comment:: as above (7) Mixed anxiety depressive disorder SNOMED Code(s): 440400173 Code(s): F41.8 - OTHER SPECIFIED ANXIETY DISORDERS Status: Chronic Priority: Medium Current Visit: Yes Annotation/Comment:: Stable by history (8) Peptic reflux disease SNOMED Code(s): 59817885 Code(s): K21.9 - GASTRO-ESOPHAGEAL REFLUX DISEASE WITHOUT ESOPHAGITIS Status: Chronic Priority: Medium Current Visit: Yes Annotation/Comment:: Stable by history with high-dose IV Pepcid given as GI prophylaxis (9) Osteoarthritis SNOMED Code(s): 771266534 Code(s): M19.90 - UNSPECIFIED OSTEOARTHRITIS, UNSPECIFIED SITE Status: Chronic Priority: Medium Current Visit: Yes Qualifiers: Osteoarthritis location: multiple joints Osteoarthritis type: primary Qualified Code(s): M15.0 - Primary generalized (osteo)arthritis Annotation/Comment:: Stable by history - Problem List Review Problem List Initiated/Reviewed/Updated: Yes - My Orders Last 24 Hours: My Active Orders 03/14/17 16:00 Acetaminophen [Tylenol] 650 mg PO Q4H PRN 03/14/17 16:07 Sodium Chloride 0.9% [Saline Flush] 10 ml FLUSH Q12HR PRN Temazepam [Restoril] 15 mg PO BEDTIME PRN 03/14/17 16:08 Antiembolic Devices [RC] .Routine Antiembolic Devices [RC] 08,20 Communication Order [RC] ROUTINE Height and Weight [RC] 0600 Intake and Output Strict [RC] ASDIRECTED Oxygen Therapy [RC] 2300 Pulse Oximetry [RC] ASDIRECTED Up With Assistance [RC] ASDIRECTED VTE Risk Score [RC] UPON VTE/DVT Education [RC] PER UNIT ROUTINE Vaccines to be Administered [RC] PER UNIT ROUTINE Antiembolic Hose [OM.PC] Routine CHF Questionnaire [COMM] Routine DVT/VTE Prophylaxis Reflex [OM.PC] Routine GM Immunization Reflex [OM.PC] Click To Edit 03/14/17 18:00 Potassium Chloride [Klor-Con M20] 20 meq PO TID Warfarin [Coumadin] 5 mg PO MoWeFr@1800 03/14/17 20:00 Furosemide [Lasix] 40 mg IVPUSH Q8H Simvastatin [Zocor] 40 mg PO BEDTIME 03/14/17 21:10 H PYLORI STOOL ANTIGEN [MREF] 03/15/17 00:58 Vital Signs [RC] Q4HR 03/15/17 05:11 EKG Documentation Completion [RC] ASDIRECTED Echo Comp wo Cont [US] Urgent 03/15/17 08:00 Docusate Sodium [Colace] 200 mg PO DAILY Metoprolol Succinate [Toprol XL] 100 mg PO QAM buPROPion [Wellbutrin SR] 150 mg PO BID@0800,1200 cloNIDine [Catapres] 0.1 mg PO DAILY 03/15/17 15:00 Echo Comp wo Cont [US] Routine 03/15/17 18:00 Warfarin [Coumadin] 2.5 mg PO SuTuThSa@1800 03/15/17 Breakfast Fluid Restriction [DIET] - Assessment Assessment:: As above - Plan Plan:: As above. Extensive precautions were given to the patient, who is in agreement with the treatment plan. Patient will require an additional 1-2 days of inpatient care on telemetry secondary to refractory atrial flutter and for further medication adjustment, etc.
[2017-03-15] MEDS: Sodium Chloride 0.9% 10 ML Syringe FLUSH PRN (12:16)
[2017-03-15] MEDS: Warfarin 2.5 MG Tab PO SCH (17:32)
[2017-03-15] MEDS: atorvaSTATin 40 MG Tab PO SCH (19:28)
[2017-03-16] MEDS: Furosemide 40 MG/4 ML VIAL IVPUSH SCH ×3 (05:02→19:11)
[2017-03-16] MEDS: Sodium Chloride 0.9% 10 ML Syringe FLUSH PRN ×2 (05:04→11:31)
[2017-03-16 07:36] LABS: CHLORIDE,CL 102 mmol/L (98-107); SODIUM,NA 139 mmol/L (136-145)
[2017-03-16] MEDS: Metoprolol Succinate 50 MG Tab.ER PO SCH (07:37)
[2017-03-16] MEDS: buPROPion 150 MG Tab.SR PO SCH ×2 (07:37→11:30)
[2017-03-16] MEDS: cloNIDine 0.1 MG Tab PO SCH (07:39)
[2017-03-16] MEDS: Potassium Chloride 20 MEQ Tab.ER PO SCH ×3 (07:40→17:42)
[2017-03-16] MEDS: Docusate Sodium 100 MG Cap PO SCH ×2 (07:40→07:42)
--- NOTE | 2017-03-16 12:06 | PCM.PN ---
- General Info Date of Service: 03/16/17 Admission Dx/Problem (Free Text): 1. Atrial flutter with rapid ventricular response 2. CHF Subjective Update: As below Functional Status: Reports: Pain Controlled, Tolerating Diet, Ambulating, Urinating. Denies: New Symptoms Pain Score: 4 - Review of Systems General: Reports: No Symptoms. Denies: Fever, Weakness, Fatigue, Malaise, Chills, Night Sweats, Appetite (Appetite good) HEENT: Reports: No Symptoms. Denies: Ear Pain, Eye Pain, Headaches, Sinus Congestion, Sore Throat, Rhinitis, Visual Changes Pulmonary: Reports: No Symptoms. Denies: Shortness of Breath, Pleuritic Chest Pain, Cough, Sputum, Wheezing Cardiovascular: Reports: No Symptoms. Denies: Chest Pain, Palpitations, Dyspnea on Exertion, Orthopnea, PND, Edema, Lightheadedness Gastrointestinal: Reports: Abdominal Pain (Persistent to somewhat improved nonspecific generalized abdominal cramping with excellent bowel movement yesterday). Denies: Constipation, Decreased Appetite, Diarrhea, Difficulty Swallowing, Flatus, Hematochezia, Melena, Nausea, Vomiting Genitourinary: Reports: No Symptoms. Denies: Dysuria, Frequency, Burning, Urgency, Hematuria, Retention, Flank Pain Musculoskeletal: Reports: No Symptoms. Denies: Neck Pain, Shoulder Pain, Arm Pain, Back Pain, Leg Pain Skin: Reports: No Symptoms. Denies: Diaphoresis, Bruising, Pruritis Neurological: Reports: No Symptoms. Denies: Confusion, Dizziness, Headache, Numbness, Paresthesia, Tingling, Weakness Psychiatric: Reports: No Symptoms. Denies: Confusion, Depression, Anxiety, Agitation, Hallucinations - Patient Data Vitals - Most Recent: Last Vital Signs Temp 36.1 C 03/16/17 11:23 Pulse 70 03/16/17 11:23 Resp 18 03/16/17 11:23 BP 133/75 03/16/17 11:23 Pulse Ox 93 L 03/16/17 11:23 Vital Signs - 24 hr 03/15/17 03/16/17 03/16/17 18:00 05:07 07:37 Temperature [ 36.6 C 36.8 C Oral] Pulse, 62 Peripheral Pulse, 62 65 Peripheral [ Left Pulse Oximetry] Respiratory 18 16 Rate Blood Pressure 138/70 Blood Pressure 143/63 H 122/61 [Right Upper Arm] O2 Sat by Pulse 97 97 Oximetry 03/16/17 03/16/17 07:39 11:23 Temperature [ 36.1 C Oral] Pulse, Peripheral Pulse, 70 Peripheral [ Left Pulse Oximetry] Respiratory 18 Rate Blood Pressure 138/70 Blood Pressure 133/75 [Right Upper Arm] O2 Sat by Pulse 93 L Oximetry Weight - Most Recent: 108.953 kg I&O - Last 24 Hours: Intake & Output 03/15/17 03/16/17 03/16/17 22:59 06:59 14:59 Intake Total 480 Output Total 1200 Balance -1200 480 Imaging Impressions - Last 24 Hours: Heart monitor shows heart rate averaging in the 60s to 70s with very occasional borderline bradycardia with lowest heart rate of 58. Note, however, somewhat increased frequency of mostly uniform PVCs with occasional couplets and brief bigeminy with no return of patient's previous atrial flutter Verbal report on 03/15/17 from the radiological technician of echocardiogram shows a decreased ejection fraction of only 32-37 percent with mild mitral valve insufficiency and aortic valve insufficiency, however no other abnormalities Lab Results Last 24 Hours: Laboratory Results - last 24 hr 03/16/17 Range/Units 06:50 Sodium 139 (136-145) mmol/L Potassium 4.3 (3.5-5.1) mmol/L Chloride 102 (98-107) mmol/L Carbon Dioxide 29.3 (21.0-32.0) mmol/L BUN 16 (7-18) mg/dL Creatinine 0.98 (0.51-1.17) mg/dL Est Cr Clr Drug Dosing 72.69 mL/min Estimated GFR (MDRD) > 60 mL/min Glucose 127 H (74-106) mg/dL Uric Acid 7.1 (2.6-7.2) mg/dL Calcium 9.4 (8.5-10.1) mg/dL Magnesium 2.1 (1.8-2.4) mg/dL Creatine Kinase 219 (26-308) U/L Creatine Kinase Index 1.0 (0.0-2.5) % CK-MB (CK-2) 2.10 (0.00-3.60) ng/mL Troponin I 0.032 (0.000-0.056) ng/mL [id number] Pept 261 H (0-125) pg/mL Danny Results Last 24 Hours: Microbiology 03/14/17 21:10 Helicobacter pylori Antigen - Final Stool / Feces 03/14/17 21:10 Stool Occult Blood (DANNY) - Final Stool / Feces NEGATIVE OCCULT BLOOD H. pylori stool antigen positive Med Orders - Current: Current Medications Acetaminophen (Tylenol) 650 mg PO Q4H PRN PRN Reason: Pain Atorvastatin Calcium (Lipitor) 40 mg PO BEDTIME [facility] Last Admin: 03/15/17 19:28 Dose: 40 mg Bupropion HCl (Wellbutrin Sr) 150 mg PO BID@0800,1200 [facility] Last Admin: 03/16/17 11:30 Dose: 150 mg Clonidine HCl (Catapres) 0.1 mg PO DAILY [facility] Last Admin: 03/16/17 07:39 Dose: 0.1 mg Docusate Sodium (Colace) 200 mg PO DAILY [facility] Last Admin: 03/16/17 07:42 Dose: Not Given Furosemide (Lasix) 40 mg IVPUSH Q8H [facility] Last Admin: 03/16/17 11:30 Dose: 40 mg Metoprolol Succinate (Toprol Xl) 100 mg PO QAM [facility] Last Admin: 03/16/17 07:37 Dose: 100 mg Potassium Chloride (Klor-Con M20) 20 meq PO TID [facility] Last Admin: 03/16/17 11:29 Dose: 20 meq Sodium Chloride (Saline Flush) 10 ml FLUSH ASDIRECTED PRN PRN Reason: Keep Vein Open Last Admin: 03/16/17 11:31 Dose: 10 ml Sodium Chloride (Saline Flush) 10 ml FLUSH Q12HR PRN PRN Reason: Keep Vein Open Temazepam (Restoril) 15 mg PO BEDTIME PRN PRN Reason: Insomnia Warfarin Sodium (Coumadin) 2.5 mg PO SuTuThSa@1800 [facility] Last Admin: 03/15/17 17:32 Dose: 2.5 mg Warfarin Sodium (Coumadin) 5 mg PO MoWeFr@1800 [facility] Last Admin: 03/14/17 17:35 Dose: 5 mg Discontinued Medications Bupropion HCl (Wellbutrin Sr) 150 mg PO BID [facility] Last Admin: 03/14/17 17:37 Dose: Not Given Famotidine (Pepcid) 40 mg IVPUSH ONETIME ONE Stop: 03/14/17 11:51 Last Admin: 03/14/17 12:05 Dose: 40 mg Furosemide (Lasix) 60 mg IVPUSH NOW ONE Stop: 03/14/17 12:55 Last Admin: 03/14/17 13:26 Dose: 60 mg Metoprolol Tartrate (Lopressor) 2.5 mg IVPUSH ONETIME ONE Stop: 03/14/17 11:51 Last Admin: 03/14/17 12:05 Dose: 2.5 mg Metoprolol Tartrate (Lopressor) 2.5 mg IVPUSH ONETIME ONE Stop: 03/14/17 13:43 Last Admin: 03/14/17 13:51 Dose: 2.5 mg Simvastatin (Zocor) 40 mg PO BEDTIME [facility] Last Admin: 03/14/17 19:44 Dose: 40 mg - Exam Quality Assessment: DVT Prophylaxis (On Coumadin). No: Supplemental Oxygen, Central Line/PICC, Urine Catheter, Skin Breakdown, Restraints General: Alert, Oriented, Cooperative, No Acute Distress HEENT: Pupils Equal, Pupils Reactive, EOMI, Mucous Membr. Moist/[place] Neck: Supple, Trachea Midline, No JVD, No Thyromegaly, Carotid Bruit (Mild bilateral carotid bruits). No: Lymphadenopathy Lungs: Clear to Auscultation, Normal Respiratory Effort. No: Rales, Rhonchi, Rub, Wheezing Cardiovascular: Regular Rate, Regular Rhythm (No extrasystoles at time of exam) , No Murmurs (Spiked evidence of mild aortic valve insufficiency and mitral valve insufficiency by echocardiogram as above). No: Gallops, Rubs GI/Abdominal Exam: Normal Bowel Sounds, Soft, Non-Tender, No Organomegaly, No Distention, No Abnormal Bruit, No Mass, Pelvis Stable, Other (Obese). No: Guarding (Male) Exam: Deferred Back Exam: Normal Inspection, Full Range of Motion. No: CVA Tenderness (L), CVA Tenderness (R), Muscle Spasm Extremities: Normal Inspection, Normal Range of Motion, Non-Tender, No Pedal Edema, Normal Capillary Refill, Other (Knee-high CASS hose in place). No: Shaniqua' s Sign Peripheral Pulses: 2+: Radial (L), Radial (R), Dorsalis Pedis (L), Dorsalis Pedis (R) Skin: Warm, Dry, Intact. No: Ecchymosis Neurological: No New Focal Deficit, Other (No clinical orthostasis) Psy/Mental Status: Alert, Normal Affect, Normal Mood. No: Agitated, Homicidal Ideation, Hallucinations, Withdrawal Symptoms EKG INTERPRETATION EKG Date: 03/16/17 Time: 07:10 Rhythm: Other (Sinus bradycardia with PVC versus PAC with apparent conduction) [place]: Normal (Left cardiac axis) P-Wave: Enlarged (Moderate diffuse biphasic P waves with extreme poor R-wave progression in the anterior leads) QRS: Other (QRS interval of 0.12 seconds representing a complete right bundle branch block/bifascicular bundle-branch block) ST-T: Other (Nonspecific ST changes in leads 1, aVL, and V6 consistent with lateral wall cardiac ischemia with Q wave in lead [address] changes in lead V6 from yesterday's EKG) QT: Normal [place]/PQ Interval: 0.21 seconds representing a first degree AV block Comparison: Change From Previous EKG (As above since 03/15/17) EKG Interpretation Comments: 1. Lateral wall cardiac ischemia 2. Sinus bradycardia with PVCs 3. First-degree AV block 4. 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 Probable left atrial enlargement - Problem List & Annotations (1) Atrial flutter SNOMED Code(s): 4321089 Code(s): I48.92 - UNSPECIFIED ATRIAL FLUTTER Status: Acute Priority: High Current Visit: Yes Qualifiers: Atrial flutter type: typical Qualified Code(s): I48.3 - Typical atrial flutter Annotation/Comment:: No recurrence of atrial flutter, however increased frequency of PVCs as above. Only occasional borderline bradycardia. Continue further medication adjustment. Mild bradycardia and first-degree AV block at this time with additional previous right bundle branch block possibly transferring to a bifascicular bundle-branch block. Serial cardiac enzymes are still negative for acute [place] mild however persistent BNP elevation and secondary high normal troponin I values and repeat EKG and cardiac enzymes in the a.m. No chest pain or anginal type symptoms. Consider additional diltiazem with caution secondary to current beta emmy therapy with patient changed from Zocor to Lipitor yesterday secondary to his persistent poor lipid profile during this hospitalization. Patient now states that he had been previously noncompliant with his Zocor for about 2 weeks. Weight loss in moderation still advisable. Blood pressures are under good control at this time. INR therapeutic on admission with repeat INR with blood work tomorrow. Note close follow-up of his INR by his regular provider recommended after discharge secondary to multiple medication changes during this hospitalization. Lipid panel, etc. should also be repeated in about 3 months. Note significant decreased ejection fraction of only 32-37% per yesterday's echocardiogram with only mild valvular disease at this time. Recent apparent negative heart catheterization in 2016, although recommend repeat Cardiolite stress test as an outpatient and/or cardiology referral once his medical regimen has been determined (2) Coronary artery disease SNOMED Code(s): 71170240 Code(s): I25.10 - ATHSCL HEART DISEASE OF [place] CORONARY ARTERY W/O ANG PCTRS Status: Chronic Priority: Medium Current Visit: Yes Qualifiers: Coronary Disease-Associated Artery/Lesion type: bypass graft [place] vs. transplanted heart: [place] heart Associated angina: without angina Qualified Code(s): I25.810 - Atherosclerosis of coronary artery bypass graft(s) without angina pectoris Annotation/Comment:: Negative workup for acute [place] as above. Chest pain protocol was initiated upon patient's arrival to the emergency room, although ASA and Brilinta were not given secondary to patient's Coumadin therapy, which is currently therapeutic as above. Cardiology consultation on an as-needed basis. No true chest pain or anginal type symptoms, despite recent nonspecific fatigue recently as above. Further cardiology consultation and/or workup recommended on an outpatient basis as above. (3) CHF (congestive heart failure) SNOMED Code(s): 19436621 Code(s): I50.9 - HEART FAILURE, UNSPECIFIED Status: Acute Priority: High Current Visit: Yes Qualifiers: Congestive heart failure type: unspecified congestive heart failure type Congestive heart failure chronicity: acute on chronic Qualified Code(s): I50.9 - Heart failure, unspecified Annotation/Comment:: As above. Chest x-ray to be repeated tomorrow (4) COPD (chronic obstructive pulmonary disease) SNOMED Code(s): 25186520 Code(s): J44.9 - CHRONIC OBSTRUCTIVE PULMONARY DISEASE, UNSPECIFIED Status : Chronic Priority: Medium Current Visit: Yes Qualifiers: COPD type: emphysema Emphysema type: panlobular Qualified Code(s): J43.1 - Panlobular emphysema Annotation/Comment:: COPD and pulmonary fibrosis by chest x-ray with no recent fever, bronchitic type symptoms, etc. (5) Hyperlipidemia SNOMED Code(s): 90867162 Code(s): E78.5 - HYPERLIPIDEMIA, UNSPECIFIED Status: Chronic Priority: Medium Current Visit: Yes Qualifiers: Hyperlipidemia type: mixed hyperlipidemia Qualified Code(s): E78.2 - Mixed hyperlipidemia Annotation/Comment:: As above. His glycosylated hemoglobin was good yesterday (6) Hypertension SNOMED Code(s): 29487816 Code(s): I10 - ESSENTIAL (PRIMARY) HYPERTENSION Status: Chronic Priority : Medium Current Visit: Yes Qualifiers: Hypertension type: essential hypertension Qualified Code(s): I10 - Essential (primary) hypertension Annotation/Comment:: as above (7) Mixed anxiety depressive disorder SNOMED Code(s): 223632587 Code(s): F41.8 - OTHER SPECIFIED ANXIETY DISORDERS Status: Chronic Priority: Medium Current Visit: Yes Annotation/Comment:: Stable by history (8) Peptic reflux disease SNOMED Code(s): 17187026 Code(s): K21.9 - GASTRO-ESOPHAGEAL REFLUX DISEASE WITHOUT ESOPHAGITIS Status: Chronic Priority: Medium Current Visit: Yes Annotation/Comment:: Stable by history with high-dose IV Pepcid given as GI prophylaxis in the emergency room. High-dose oral Prilosec therapy to be initiated today secondary to positive H pylori evaluation as above. Further treatment of acute infection at time of discharge as below (9) Osteoarthritis SNOMED Code(s): 633246426 Code(s): M19.90 - UNSPECIFIED OSTEOARTHRITIS, UNSPECIFIED SITE Status: Chronic Priority: Medium Current Visit: Yes Qualifiers: Osteoarthritis location: multiple joints Osteoarthritis type: primary Qualified Code(s): M15.0 - Primary generalized (osteo)arthritis Annotation/Comment:: Stable by history (10) First degree AV block SNOMED Code(s): 845649681 Code(s): I44.0 - ATRIOVENTRICULAR BLOCK, FIRST DEGREE Status: Acute Priority: High Current Visit: Yes Onset Date: 03/16/17 Annotation/Comment: : As above (11) PVCs (premature ventricular contractions) SNOMED Code(s): 58480311 Code(s): I49.3 - VENTRICULAR PREMATURE DEPOLARIZATION Status: Acute Priority: High Current Visit: Yes Onset Date: 03/15/17 Annotation/Comment: : As above. Consider event monitor as an outpatient (12) H. pylori infection SNOMED Code(s): 955976624 Code(s): A04.8 - OTHER SPECIFIED BACTERIAL INTESTINAL INFECTIONS Status: Acute Priority: High Current Visit: Yes Onset Date: 03/16/17 Annotation/ Comment:: Stool specimen positive for H. pylori antigen. Various therapeutic options were discussed with the patient with initiation of H. pylori treatment regimen at discharge with caution secondary to his current Coumadin therapy. Current nonspecific occasional abdominal cramping with further GI workup depending on his clinical course - Problem List Review Problem List Initiated/Reviewed/Updated: Yes - My Orders Last 24 Hours: My Active Orders 03/15/17 13:32 Vital Signs [RC] Q6HR 03/15/17 18:00 Warfarin [Coumadin] 2.5 mg PO SuTuThSa@1800 03/15/17 20:00 atorvaSTATin [Lipitor] 40 mg PO BEDTIME 03/16/17 05:11 EKG Documentation Completion [RC] ASDIRECTED 03/17/17 05:11 EKG Documentation Completion [RC] ASDIRECTED Chest 2V [CR] Routine CBC WITH AUTO DIFF [HEME] Routine CK W CKMB [CHEM] Routine COMPREHENSIVE METABOLIC PN,CMP [CHEM] Routine INR,PT,PROTHROMBIN TIME [COAG] Routine PRO B-TYPE NATRIUR PEPT,BNPPRO [CHEM] Routine TROPONIN I [CHEM] Routine EKG 12 Lead [EK] Routine - Assessment Assessment:: As above - Plan Plan:: As above. copyright clerk physician assumes care in the a.m. Extensive precautions were given to the patient, who is in agreement with the treatment plan. Patient will require an additional 1-2 days of inpatient care on telemetry secondary to refractory atrial flutter and for further medication adjustment, etc.
[2017-03-16] MEDS: Warfarin 2.5 MG Tab PO SCH (17:41)
[2017-03-16] MEDS: Omeprazole 20 MG Cap.CR PO SCH (17:43)
[2017-03-16] MEDS: atorvaSTATin 40 MG Tab PO SCH (19:11)
[2017-03-17] MEDS: Furosemide 40 MG/4 ML VIAL IVPUSH SCH ×3 (04:53→12:06)
[2017-03-17] MEDS: Metoprolol Succinate 50 MG Tab.ER PO SCH (07:41)
[2017-03-17] MEDS: Potassium Chloride 20 MEQ Tab.ER PO SCH ×3 (07:43→17:07)
[2017-03-17] MEDS: Docusate Sodium 100 MG Cap PO SCH (07:43)
[2017-03-17] MEDS: buPROPion 150 MG Tab.SR PO SCH ×2 (07:45→11:52)
[2017-03-17] MEDS: Omeprazole 20 MG Cap.CR PO SCH ×2 (07:45→17:07)
[2017-03-17] MEDS: cloNIDine 0.1 MG Tab PO SCH (07:45)
[2017-03-17 07:48] LABS: CHLORIDE,CL 102 mmol/L (98-107); SODIUM,NA 136 mmol/L (136-145)
[2017-03-17] MEDS: Sodium Chloride 0.9% 10 ML Syringe FLUSH PRN (11:54)
[2017-03-17] MEDS ORDERED: Furosemide 40 MG Tab PO ONE (12:07)
--- NOTE | 2017-03-17 15:13 | PCM.PN ---
- General Info Date of Service: 03/17/17 Admission Dx/Problem (Free Text): Atrial fib atrial flutter patient is a 76-year-old with history of atrial fib atrial flutter seen by driver utility worker in the past patient has refused ablation and is being treated medically now is hypertensive and was admitted to the hospital for evaluation and treatment Functional Status: Reports: Tolerating Diet - Review of Systems General: Reports: No Symptoms HEENT: Reports: No Symptoms Pulmonary: Reports: No Symptoms Cardiovascular: Reports: No Symptoms Gastrointestinal: Reports: No Symptoms Musculoskeletal: Reports: No Symptoms Skin: Reports: No Symptoms Neurological: Reports: No Symptoms Psychiatric: Reports: No Symptoms - Patient Data Vitals - Most Recent: Last Vital Signs Temp 98.2 F 03/17/17 11:03 Pulse 65 03/17/17 11:03 Resp 16 03/17/17 11:03 BP 118/75 03/17/17 11:03 Pulse Ox 97 03/17/17 11:03 Weight - Most Recent: 240 lb 14.4 oz I&O - Last 24 Hours: Intake & Output 03/17/17 03/17/17 03/17/17 06:59 14:59 22:59 Intake Total 240 300 Output Total 300 Balance -60 300 Lab Results Last 24 Hours: Laboratory Results - last 24 hr 03/17/17 03/17/17 03/17/17 Range/Units 06:40 06:40 06:40 WBC 9.3 (4.0-10.2) K/uL RBC 6.04 H (4.33-5.41) M/uL Hgb 17.9 H (13.1-16.8) g/dL Hct 50.7 H (39.0-49.0) % MCV 83.9 L (84.0-98.0) fL MCH 29.6 (28.2-33.3) pg MCHC 35.3 (31.7-36.0) g/dL RDW 14.9 H (11.2-14.1) % Plt Count 157 (150-350) K/uL Neut % (Auto) 53.2 (45.0-80.0) % Lymph % (Auto) 35.6 (10.0-50.0) % Teller % (Auto) 9.5 (2.0-14.0) % Eos % (Auto) 1.5 (0.0-5.0) % Baso % (Auto) 0.2 (0.0-2.0) % Neut # (Auto) 4.94 (1.40-7.00) K/uL Lymph # (Auto) 3.30 (0.50-3.50) K/uL Teller # (Auto) 0.88 (0.00-1.00) K/uL Eos # (Auto) 0.14 (0.00-0.50) K/uL Baso # (Auto) 0.02 (0.00-0.20) K/uL PT 52.3 H D (9.8-11.7) SEC INR 4.5 Sodium 136 (136-145) mmol/L Potassium 4.1 (3.5-5.1) mmol/L Chloride 102 (98-107) mmol/L Carbon Dioxide 25.6 (21.0-32.0) mmol/L BUN 17 (7-18) mg/dL Creatinine 0.94 (0.51-1.17) mg/dL Est Cr Clr Drug Dosing 75.78 mL/min Estimated GFR (MDRD) > 60 mL/min Glucose 144 H (74-106) mg/dL Calcium 9.6 (8.5-10.1) mg/dL Total Bilirubin 0.8 (0.2-1.0) mg/dL AST 29 (15-37) U/L ALT 30 (12-78) U/L Alkaline Phosphatase 69 (46-116) IU/L Creatine Kinase 164 (26-308) U/L Creatine Kinase Index 2.2 (0.0-2.5) % CK-MB (CK-2) 3.60 (0.00-3.60) ng/mL Troponin I 0.030 (0.000-0.056) ng/mL [facility] Pept 365 H (0-125) pg/mL Total Protein 8.2 (6.4-8.2) g/dL Albumin 3.8 (3.4-5.0) g/dL Med Orders - Current: Current Medications Acetaminophen (Tylenol) 650 mg PO Q4H PRN PRN Reason: Pain Atorvastatin Calcium (Lipitor) 40 mg PO BEDTIME [facility] Last Admin: 03/16/17 19:11 Dose: 40 mg Bupropion HCl (Wellbutrin Sr) 150 mg PO BID@0800,1200 [facility] Last Admin: 03/17/17 11:52 Dose: 150 mg Clonidine HCl (Catapres) 0.1 mg PO DAILY [facility] Last Admin: 03/17/17 07:45 Dose: 0.1 mg Docusate Sodium (Colace) 200 mg PO DAILY [facility] Last Admin: 03/17/17 07:43 Dose: 100 mg Furosemide (Lasix) 40 mg IVPUSH Q8H [facility] Last Admin: 03/17/17 12:06 Dose: Not Given Metoprolol Succinate (Toprol Xl) 100 mg PO QAM [facility] Last Admin: 03/17/17 07:41 Dose: 100 mg Omeprazole (Omeprazole) 20 mg PO BIDAC [facility] Last Admin: 03/17/17 07:45 Dose: 20 mg Potassium Chloride (Klor-Con M20) 20 meq PO TID [facility] Last Admin: 03/17/17 11:53 Dose: 20 meq Sodium Chloride (Saline Flush) 10 ml FLUSH ASDIRECTED PRN PRN Reason: Keep Vein Open Last Admin: 03/17/17 11:54 Dose: 10 ml Sodium Chloride (Saline Flush) 10 ml FLUSH Q12HR PRN PRN Reason: Keep Vein Open Last Admin: 03/17/17 04:58 Dose: 10 ml Temazepam (Restoril) 15 mg PO BEDTIME PRN PRN Reason: Insomnia Warfarin Sodium (Coumadin) 2.5 mg PO SuTuThSa@1800 [facility] Last Admin: 03/15/17 17:32 Dose: 2.5 mg Warfarin Sodium (Coumadin) 5 mg PO MoWeFr@1800 [facility] Last Admin: 03/16/17 17:41 Dose: 5 mg Discontinued Medications Bupropion HCl (Wellbutrin Sr) 150 mg PO BID [facility] Last Admin: 03/14/17 17:37 Dose: Not Given Famotidine (Pepcid) 40 mg IVPUSH ONETIME ONE Stop: 03/14/17 11:51 Last Admin: 03/14/17 12:05 Dose: 40 mg Furosemide (Lasix) 60 mg IVPUSH NOW ONE Stop: 03/14/17 12:55 Last Admin: 03/14/17 13:26 Dose: 60 mg Furosemide (Lasix) 40 mg PO ONETIME ONE Stop: 03/17/17 12:08 Last Admin: 03/17/17 12:43 Dose: 40 mg Metoprolol Tartrate (Lopressor) 2.5 mg IVPUSH ONETIME ONE Stop: 03/14/17 11:51 Last Admin: 03/14/17 12:05 Dose: 2.5 mg Metoprolol Tartrate (Lopressor) 2.5 mg IVPUSH ONETIME ONE Stop: 03/14/17 13:43 Last Admin: 03/14/17 13:51 Dose: 2.5 mg Simvastatin (Zocor) 40 mg PO BEDTIME [facility] Last Admin: 03/14/17 19:44 Dose: 40 mg - Problem List & Annotations (1) Hypertension SNOMED Code(s): 78723501 Code(s): I10 - ESSENTIAL (PRIMARY) HYPERTENSION Status: Chronic Priority : Medium Current Visit: Yes Qualifiers: Hypertension type: essential hypertension Qualified Code(s): I10 - Essential (primary) hypertension Annotation/Comment:: as above - Problem List Review Problem List Initiated/Reviewed/Updated: Yes - Assessment Assessment:: As above - Plan Plan:: As above. Marlene rodgers physician assumes care in the a.m. Extensive precautions were given to the patient, who is in agreement with the treatment plan. Patient will require an additional 1-2 days of inpatient care on telemetry secondary to refractory atrial flutter and for further medication adjustment, etc. At this time patient will be kept overnight to monitor blood pressure prior to discharge his very light in [facility] controlling
[2017-03-17] MEDS: Warfarin 2.5 MG Tab PO SCH (17:08)
[2017-03-17] MEDS: atorvaSTATin 40 MG Tab PO SCH (19:38)
[2017-03-18 07:42] LABS: CHLORIDE,CL 103 mmol/L (98-107); SODIUM,NA 140 mmol/L (136-145)
[2017-03-18] MEDS: cloNIDine 0.1 MG Tab PO SCH (07:55)
[2017-03-18] MEDS: Metoprolol Succinate 50 MG Tab.ER PO SCH (07:55)
[2017-03-18] MEDS: Omeprazole 20 MG Cap.CR PO SCH (07:55)
[2017-03-18] MEDS: buPROPion 150 MG Tab.SR PO SCH ×2 (07:55→11:44)
[2017-03-18] MEDS: Potassium Chloride 20 MEQ Tab.ER PO SCH ×2 (07:55→11:44)
[2017-03-18 07:56] VITALS: BP 133/72
[2017-03-18] MEDS: Docusate Sodium 100 MG Cap PO SCH (07:56)
[2017-03-18] MEDS ORDERED: Furosemide 40 MG Tab PO SCH ×2 (08:00)
--- NOTE | 2017-03-18 13:03 | PCM.DCSUM1 ---
Discharge Summary - Hospital Course Free Text/Narrative:: Mike is a 76-year-old who was admitted with atrial fibrillation CHF was diereses and rhythm controlled at this time he still in atrial flutter but tolerating it well he does not want go to a lighting engineering technician for ablation at this time patient will be discharged on his home medications - Discharge Data Discharge Date: 03/18/17 Discharge Disposition: Home, Self-Care 01 Condition: Good - Discharge Diagnosis/Problem(s) (1) Hypertension SNOMED Code(s): 12793014 ICD Code: I10 - ESSENTIAL (PRIMARY) HYPERTENSION Status: Chronic Priority : Medium Current Visit: Yes Problem Details: as above Qualifiers: Hypertension type: essential hypertension Qualified Code(s): I10 - Essential (primary) hypertension (2) Atrial flutter SNOMED Code(s): 1530734 ICD Code: I48.92 - UNSPECIFIED ATRIAL FLUTTER Status: Acute Priority: High Current Visit: Yes Problem Details: No recurrence of atrial flutter, however increased frequency of PVCs as above. Only occasional borderline bradycardia. Continue further medication adjustment. 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 Serial cardiac enzymes are still negative for acute AK mild however persistent BNP elevation and secondary high normal troponin I values and repeat EKG and cardiac enzymes in the a.m. No chest pain or anginal type symptoms. Consider additional diltiazem with caution secondary to current beta emmy therapy with patient changed from Zocor to Lipitor yesterday secondary to his persistent poor lipid profile during this hospitalization. Patient now states that he had been previously noncompliant with his Zocor for about 2 weeks. Weight loss in moderation still advisable. Blood pressures are under good control at this time. INR therapeutic on admission with repeat INR with blood work tomorrow. Note close follow-up of his INR by his regular provider recommended after discharge secondary to multiple medication changes during this hospitalization. Lipid panel, etc. should also be repeated in about 3 months. Note significant decreased ejection fraction of only 32-37% per yesterday's echocardiogram with only mild valvular disease at this time. Recent apparent negative heart catheterization in 2016, although recommend repeat Cardiolite stress test as an outpatient and/or cardiology referral once his medical regimen has been determined Qualifiers: Atrial flutter type: typical Qualified Code(s): I48.3 - Typical atrial flutter (3) CHF (congestive heart failure) SNOMED Code(s): 20555199 ICD Code: I50.9 - HEART FAILURE, UNSPECIFIED Status: Acute Priority: High Current Visit: Yes Problem Details: No change in chest x ray and EKG Qualifiers: Congestive heart failure type: unspecified congestive heart failure type Congestive heart failure chronicity: acute on chronic Qualified Code(s): I50.9 - Heart failure, unspecified - Patient Instructions Diet: Heart Healthy Diet Activity: As Tolerated Showering/Bathing: May Shower Other/Special Instructions: Patient to follow up with PCP in 7-10 days for post hospitalization visit - Discharge Plan Home Medications: Home Meds Acetaminophen 1,000 mg PO Q6H PRN 03/14/17 [History] Aspirin [Halfprin] 81 mg PO DAILY 03/14/17 [History] Docusate Sodium 250 mg PO DAILY 03/14/17 [History] Furosemide 20 mg PO WITHDINNER 03/14/17 [History] Furosemide 40 mg PO QAM 03/14/17 [History] Metoprolol Succinate [Toprol XL] 50 mg PO BEDTIME 03/14/17 [History] Metoprolol Succinate [Toprol XL] 100 mg PO QAM 03/14/17 [History] Multivitamin [Daily Multiple Vitamin] 1 tab PO DAILY 03/14/17 [History] Nitroglycerin [Nitrostat] 0.4 mg SL ASDIRECTED 03/14/17 [History] Omeprazole 20 mg PO DAILY 03/14/17 [History] Potassium Chloride [Klor-Con 10] 10 meq PO DAILY 03/14/17 [History] Simvastatin [Zocor] 40 mg PO BEDTIME 03/14/17 [History] Warfarin [Coumadin] 2.5 mg PO ASDIRECTED 03/14/17 [History] buPROPion [Wellbutrin SR] 150 mg PO ,03/14/17 [History] cloNIDine [Catapres] 0.1 mg PO DAILY 03/14/17 [History] Patient Handouts: Atrial Flutter, Heart Failure Forms: ED Department Discharge Referrals: Anita Gar PA-C [Primary Care Provider] - - General Info Date of Service: 08/18/17 - Review of Systems General: Reports: No Symptoms HEENT: Reports: No Symptoms Pulmonary: Reports: No Symptoms Cardiovascular: Reports: No Symptoms Gastrointestinal: Reports: No Symptoms Genitourinary: Reports: No Symptoms Musculoskeletal: Reports: No Symptoms Skin: Reports: No Symptoms Neurological: Reports: No Symptoms Psychiatric: Reports: No Symptoms - Patient Data Vitals - Most Recent: Last Vital Signs Temp 97.9 F 03/17/17 19:51 Pulse 86 03/18/17 08:00 Resp 16 03/17/17 19:51 BP 133/72 03/18/17 08:00 Pulse Ox 95 03/17/17 19:51 Weight - Most Recent: 241 lb 8 oz I&O - Last 24 hours: Intake & Output 03/17/17 03/18/17 03/18/17 22:59 06:59 14:59 Intake Total 480 500 950 Output Total 600 800 Balance -120 -300 950 Lab Results - Last 24 hrs: Laboratory Results - last 24 hr 03/18/17 03/18/17 03/18/17 Range/Units 07:20 07:20 07:20 WBC 10.4 H (4.0-10.2) K/uL RBC 6.00 H (4.33-5.41) M/uL Hgb 17.8 H (13.1-16.8) g/dL Hct 51.4 H (39.0-49.0) % MCV 85.7 (84.0-98.0) fL MCH 29.7 (28.2-33.3) pg MCHC 34.6 (31.7-36.0) g/dL RDW 15.2 H (11.2-14.1) % Plt Count 158 (150-350) K/uL Neut % (Auto) 49.7 (45.0-80.0) % Lymph % (Auto) 37.4 (10.0-50.0) % [place] % (Auto) 11.5 (2.0-14.0) % Eos % (Auto) 1.2 (0.0-5.0) % Baso % (Auto) 0.2 (0.0-2.0) % Neut # (Auto) 5.17 (1.40-7.00) K/uL Lymph # (Auto) 3.89 H (0.50-3.50) K/uL [place] # (Auto) 1.19 H (0.00-1.00) K/uL Eos # (Auto) 0.12 (0.00-0.50) K/uL Baso # (Auto) 0.02 (0.00-0.20) K/uL PT 48.2 H (9.8-11.7) SEC INR 4.2 Sodium 140 (136-145) mmol/L Potassium 4.9 (3.5-5.1) mmol/L Chloride 103 (98-107) mmol/L Carbon Dioxide 28.5 (21.0-32.0) mmol/L BUN 17 (7-18) mg/dL Creatinine 0.95 (0.51-1.17) mg/dL Est Cr Clr Drug Dosing 74.98 mL/min Estimated GFR (MDRD) > 60 mL/min Glucose 112 H (74-106) mg/dL Calcium 9.6 (8.5-10.1) mg/dL Med Orders - Current: Current Medications Acetaminophen (Tylenol) 650 mg PO Q4H PRN PRN Reason: Pain Atorvastatin Calcium (Lipitor) 40 mg PO BEDTIME [facility] Last Admin: 03/17/17 19:38 Dose: 40 mg Bupropion HCl (Wellbutrin Sr) 150 mg PO BID@0800,1200 [facility] Last Admin: 03/18/17 11:44 Dose: 150 mg Clonidine HCl (Catapres) 0.1 mg PO DAILY [facility] Last Admin: 03/18/17 07:55 Dose: 0.1 mg Docusate Sodium (Colace) 200 mg PO DAILY [facility] Last Admin: 03/18/17 07:56 Dose: 200 mg Furosemide (Lasix) 40 mg PO BID [facility] Last Admin: 03/18/17 07:55 Dose: 40 mg Metoprolol Succinate (Toprol Xl) 100 mg PO QAM [facility] Last Admin: 03/18/17 07:55 Dose: 100 mg Omeprazole (Omeprazole) 20 mg PO BIDAC [facility] Last Admin: 03/18/17 07:55 Dose: 20 mg Potassium Chloride (Klor-Con M20) 20 meq PO TID [facility] Last Admin: 03/18/17 11:44 Dose: 20 meq Sodium Chloride (Saline Flush) 10 ml FLUSH ASDIRECTED PRN PRN Reason: Keep Vein Open Last Admin: 03/17/17 11:54 Dose: 10 ml Sodium Chloride (Saline Flush) 10 ml FLUSH Q12HR PRN PRN Reason: Keep Vein Open Last Admin: 03/17/17 04:58 Dose: 10 ml Temazepam (Restoril) 15 mg PO BEDTIME PRN PRN Reason: Insomnia Discontinued Medications Bupropion HCl (Wellbutrin Sr) 150 mg PO BID [facility] Last Admin: 03/14/17 17:37 Dose: Not Given Famotidine (Pepcid) 40 mg IVPUSH ONETIME ONE Stop: 03/14/17 11:51 Last Admin: 03/14/17 12:05 Dose: 40 mg Furosemide (Lasix) 60 mg IVPUSH NOW ONE Stop: 03/14/17 12:55 Last Admin: 03/14/17 13:26 Dose: 60 mg Furosemide (Lasix) 40 mg IVPUSH Q8H [facility] Last Admin: 03/17/17 12:06 Dose: Not Given Furosemide (Lasix) 40 mg PO ONETIME ONE Stop: 03/17/17 12:08 Last Admin: 03/17/17 12:43 Dose: 40 mg Furosemide (Lasix) 40 mg PO BID [facility] Metoprolol Tartrate (Lopressor) 2.5 mg IVPUSH ONETIME ONE Stop: 03/14/17 11:51 Last Admin: 03/14/17 12:05 Dose: 2.5 mg Metoprolol Tartrate (Lopressor) 2.5 mg IVPUSH ONETIME ONE Stop: 03/14/17 13:43 Last Admin: 03/14/17 13:51 Dose: 2.5 mg Simvastatin (Zocor) 40 mg PO BEDTIME [facility] Last Admin: 03/14/17 19:44 Dose: 40 mg Warfarin Sodium (Coumadin) 2.5 mg PO SuTuThSa@1800 [facility] Last Admin: 03/17/17 17:08 Dose: 2.5 mg Warfarin Sodium (Coumadin) 5 mg PO MoWeFr@1800 [facility] Last Admin: 03/16/17 17:41 Dose: 5 mg - Exam General: Reports: Alert, Oriented HEENT: Reports: Pupils Equal, Pupils Reactive, EOMI, Mucous Membr. Moist/[place] Neck: Reports: Supple Lungs: Reports: Clear to Auscultation, Normal Respiratory Effort Cardiovascular: Reports: Irregular Rhythm. Denies: Murmurs, Gallops, Rubs GI/Abdominal Exam: Normal Bowel Sounds, Soft, Non-Tender, No Organomegaly, No Distention, No Abnormal Bruit, No Mass, Pelvis Stable (Male) Exam: Deferred Rectal (Males) Exam: Deferred Extremities: Normal Inspection, Normal Range of Motion, Non-Tender, No Pedal Edema, Normal Capillary Refill Skin: Reports: Warm, Dry, Intact Neurological: Reports: No New Focal Deficit Psy/Mental Status: Reports: Alert, Normal Affect, Normal Mood *Q Meaningful Use (DIS) - VTE *Q VTE Criteria *Q: - Stroke *Q Stroke Criteria *Q: - AMI *Q AMI Criteria *Q:
== END 2017-03-18 13:45 | disposition home or self-care (01) | DRG 309 ==
LOC: LL.ED 11:45 → UNDOADMIN 14:19 → LL.MS 14:19 → UNDODISIN 03-18 13:45
PROVIDERS: ADMIT Family Medicine; ATTEND Family Medicine
DX: I48.92 Unspecified atrial flutter (principal); I48.91 Unspecified atrial fibrillation; I25.810 Atherosclerosis of coronary artery bypass graft(s) without angina pectoris; Z79.82 Long term (current) use of aspirin; Z79.01 Long term (current) use of anticoagulants; E78.00 Pure hypercholesterolemia, unspecified; I50.9 Heart failure, unspecified; I44.0 Atrioventricular block, first degree; J44.9 Chronic obstructive pulmonary disease, unspecified; K21.9 Gastro-esophageal reflux disease without esophagitis; K64.9 Unspecified hemorrhoids; K59.09 Other constipation; E78.5 Hyperlipidemia, unspecified; F41.8 Other specified anxiety disorders; J43.1 Panlobular emphysema; K27.9 Peptic ulcer, site unspecified, unspecified as acute or chronic, without hemorrhage or perforation; I48.3 Typical atrial flutter; I11.0 Hypertensive heart disease with heart failure; Z79.899 Other long term (current) drug therapy
CPT/HCPCS: 36415; 71010; 80053; 82550; 82553; 83605; 83735; 83880; 84443; 84484; 84550; 85025; 85379; 85610; 85730; 93005; 96374; 96375; 96376; 99285; J1940; J7050 ×2; 71020; 80048; 80061; 82272; 83036; 87338; 93306; A9270-GY; J3490; S0028

== ENCOUNTER 2017-07-14 17:07 | Emergency (ER) | payer MEDICARE, OTHER ==
[2017-07-14] MEDS ORDERED: Sodium Chloride 0.9% 10 ML Syringe FLUSH PRN (17:40)
[2017-07-14] MEDS ORDERED: Labetalol 20 MG/4 ML Syringe IVPUSH ONE ×2 (17:45→18:08)
[2017-07-14 18:01] LABS: CHLORIDE,CL 102 mmol/L (98-107); SODIUM,NA 138 mmol/L (136-145)
--- NOTE | 2017-07-14 18:12 | EDM.PDOC ---
ED HPI GENERAL MEDICAL PROBLEM - General Chief Complaint: Cardiovascular Problem Stated Complaint: dizzy, HTN, HART Time Seen by Provider: 07/14/17 17:18 Source of Information: Reports: Patient, Family History Limitations: Reports: No Limitations - History of Present Illness INITIAL COMMENTS - FREE TEXT/NARRATIVE: Patient brought to ER by son after being seen at [facility] for complaint of increased lightheadedness, elevated BP, frontal headache/pressure. Was recommended to be sent to [facility] in [place] by ambulance. Patient wanted to go by private vehicle. Patient says that [facility] refused to evaluate him if he did not go by ambulance. He instead came to our ER due to the above argument over transportation. Patient has history of CABG/CAD. He denies chest pain but has had acute worsening of the above complaints over the past several weeks. He does admit that the lightheadedness has been chronic since the CABG in 2013. He has also had chronic SOB since then. Denies actual acute worsening of the SOB. Says BP is usually 140s/80-90 Was seen at local clinic for these issues last week and also at [facility] in [place]. Some medication adjustments made. He says that symptoms are worse and not better. No recent other changes/trauma/illnesses. 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 The pressure sensation he feels in the front of his head is similar to the headaches he has had from this in past. Improves with: Reports: Rest - Related Data Allergies Allergy/AdvReac Type Severity Reaction Status Date / Time lisinopril Allergy Cough Verified 07/14/17 17:40 Home Meds: Home Meds Acetaminophen 1,000 mg PO Q6H PRN 03/14/17 [History] Aspirin [Halfprin] 81 mg PO DAILY 03/14/17 [History] Docusate Sodium 250 mg PO DAILY 03/14/17 [History] Furosemide 20 mg PO 12 03/14/17 [History] Furosemide 40 mg PO QAM 03/14/17 [History] Metoprolol Succinate [Toprol XL] 50 mg PO BEDTIME 03/14/17 [History] Metoprolol Succinate [Toprol XL] 100 mg PO QAM 03/14/17 [History] Multivitamin [Daily Multiple Vitamin] 1 tab PO DAILY 03/14/17 [History] Nitroglycerin [Nitrostat] 0.4 mg SL ASDIRECTED 03/14/17 [History] Omeprazole 20 mg PO DAILY 03/14/17 [History] Potassium Chloride [Klor-Con 10] 10 meq PO DAILY 03/14/17 [History] Warfarin [Coumadin] 2.5 mg PO ASDIRECTED 03/14/17 [History] buPROPion [Wellbutrin SR] 150 mg PO 03/14/17 [History] cloNIDine [Catapres] 0.1 mg PO DAILY 03/14/17 [History] Amiodarone [Cordarone] 200 mg PO DAILY 07/14/17 [History] Metolazone [Zaroxolyn] 2.5 mg PO ASDIRECTED 07/14/17 [History] atorvaSTATin [Lipitor] 20 mg PO DAILY 07/14/17 [History] Past Medical History HEENT History: Reports: Hard of Hearing, Impaired Vision, Other (See Below) Other HEENT History: Patient wears glasses including reading glasses, bilateral presbycusis no current hearing aid therapy Cardiovascular History: Reports: Afib, Arrhythmia, Bypass, CAD, Heart Failure, High Cholesterol, Hypertension, Other (See Below). Denies: Aneurysm, Blood Clots/VTE/DVT, KS, PTCA, Stents, Syncope Other Cardiovascular History: Sinus tachycardia with first-degree AV block with d-dimer elevation on 02/03/15, with previous first degree AV block and incomplete/ complete right bundle branch block, known previous history of intermittent atrial fibrillation/flutter with current Coumadin therapy Respiratory History: Reports: COPD, Pulmonary Fibrosis, Other (See Below) Other Respiratory History: COPD and pulmonary fibrosis by chest x-ray Gastrointestinal History: Reports: Cholelithiasis, Chronic Constipation, Chronic Diarrhea, Diverticulosis, GERD, Hemorrhoids, Other (See Below). Denies : Celiac Disease, Colon Polyp, Gastritis, GI Bleed, Hepatitis, Hiatal Hernia, Inflammatory Bowel Disease, Irritable Bowel Syndrome, Jaundice, Pancreatitis, PUD Other Gastrointestinal History: Chronic constipation with previous history of Chronic diarrhea with occasional 45 bowel movements per day, diverticulosis by colonoscopy hemorrhoids with chronic mild gross hematochezia, duodenal diverticulum by EGD, LFTs elevation and hyperbilirubinemia on 02/03/15 with possible history of fatty liver Genitourinary History: Reports: BPH, Urinary Incontinence. Denies: Acute Renal Failure, Chronic Renal Insuffiency, Renal Calculus, STD, UTI, Recurrent Musculoskeletal History: Reports: Arthritis, Back Pain, Chronic, Fracture, Neck Pain, Chronic, Osteoarthritis, Other (See Below). 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 Denies: Cerebral Aneurysms, CVA, Migraines, MS, Parkinson's, Seizure, TIA Other Neuro History: Concussion on 08/14/12, chronic headaches secondary to previous meningitis. Recent problems with burning hot discomfort right lower extremity from hip on down. Pending MRI study. Psychiatric History: Reports: Anxiety, Depression, Psych Hospitalization(s), Suicidal Ideation, Other (See Below). Denies: Abuse, Victim of, ADD, ADHD, Addiction, PTSD, Suicide Attempt Other Psychiatric History: Previous mild suicidal ideation with brief hospitalization in the Endocrine/Metabolic History: Reports: None. Denies: Diabetes, Type I, Diabetes , Type II, Hypothyroidism, IDDM Hematologic History: Reports: None, Other (See Below). Denies: Anemia, Blood Transfusion(s) Other Hematologic History: No blood transfusions including with CABG by his history Immunologic History: Reports: None. Denies: AIDS, HIV, SLE Oncologic (Cancer) History: Reports: Other (See Below). Denies: Colon, Hodgkin' s Lymphoma, Leukemia, Lymphoma, Non-Hodgkin's Lymphoma, Prostate Other Oncologic History: Unknown type of skin cancer in the facial region treated with cryotherapy Dermatologic History: Reports: Venous Stasis Dermatitis. Denies: Eczema, Psoriasis - Infectious Disease History Infectious Disease History: Reports: Chicken Pox, Measles, Meningitis (spinal meningitis in the 1970s). Denies: C-Difficile, Mononucleosis, MRSA, Mumps, Pertussis (Whooping Cough), Rubella, Scarlet Fever, Shingles, TB, VRE - Past Surgical History Head Surgeries/Procedures: Reports: None HEENT Surgical History: Reports: Oral Surgery, Other (See Below). Denies: Adenoidectomy, Cataract Surgery, Eye Surgery, Laser Surgery, LASIK, Myringotomy w Tube(s), Naso-Sinus Surgery, Tonsillectomy Other HEENT Surgeries/Procedures: Multiple teeth extractions Cardiovascular Surgical History: Reports: Coronary Artery Bypass, Other (See Below). Denies: Aneurysm, Carotid Stents, Coronary Artery Stent, Percutaneous Transluminal Angioplasty, Varicose Other Cardiovascular Surgeries/Procedures: CABG 4 on 08/19/14 Respiratory Surgical History: Reports: None. Denies: Thoracentesis GI Surgical History: Reports: Cholecystectomy, Colonoscopy, EGD, Other (See Below). Denies: Appendectomy, Hernia, Abdominal, Hernia, Inguinal, Hernia Repair/Other Other GI Surgeries/Procedures: Laparoscopic cholecystectomy on 02/04/15, EGD on 18/04, last colonoscopy on 10/16/08 - Past Imaging History Past Imaging History: Reports: Angiography (Apparent negative heart catheterization in 2016), CAT Scan (CT of the brain on 08/14/12), MRI (MRI of the lumbar spine on 01/28/10), Stress Testing (Low level cardiac stress test on ), Venous Doppler (Left leg on 01/09/14) Social & Family History - Family History HEENT: Reports: None. Denies: Cataract, Glaucoma, Macular Degeneration, Retinal Detachment Cardiac: Reports: CAD, Heart Failure, High Cholesterol, KS, Other (See Below). Denies: Afib, Aneurysm, Arrhythmia, Blood Clots/VTE/DVT, Bypass, Hypertension, Pacemaker, PVD/COD, Stent, Syncope Other Cardiac Family History: Father with fatal KS and CHF likely secondary to renal failure and intolerance of dialysis at age 81, mother with fatal KS at age 79, brother with fatal KS at about age 83, brother with fatal KS in his 70s brother with fatal KS at age 52 mother with hyperlipidemia Respiratory: Reports: None. Denies: COPD, PE, Pneumothorax, Sleep Apnea GI: Reports: None. Denies: Celiac Disease, Colon Polyps, GERD, GI bleed, Inflammatory Bowel Disease, Irritable Bowel Syndrome, PUD : Reports: Dialysis, Renal Disease/Insufficiency, Other (See Below) Other Family History: Father with acute renal failure and unsuccessful dialysis OBGYN: Reports: None Musculoskeletal: Reports: None. Denies: Gout, RA, SLE Neurological: Reports: Alzheimers Disease, Dementia, Other (See Below). Denies : CVA, Migraines, MS, Parkinson's, Seizure, TIA Other Neurological Family History: Sister with fatal with dementia in her 70s Psychiatric: Reports: None. Denies: Abuse, Victim of, ADD, ADHD, Anxiety, Depression, Psych Hospitalization(s), PTSD, Suicide Attempt Endocrine/Metabolic: Reports: Hypothyroidism, Other (See Below). Denies: Diabetes, Type I, Diabetes, type II Other Endocrine/Metabolic Family History: Sister with hypothyroidism Hematologic: Reports: None. Denies: Anemia, SLE Immunologic: Reports: None. Denies: AIDS, HIV, SLE Dermatologic: Reports: None. Denies: Eczema, Psoriasis Oncologic: Reports: Lung, Prostate, Other (See Below). Denies: Colon, Hodgkin' s Lymphoma, Leukemia, Lymphoma, Non-Hodgkin's Lymphoma, Pancreatic, Skin Other Oncologic Family History: Sister with fatal lung cancer in her late 60s with no previous tobacco use, brother with prostate cancer in his 70s however he from an KS as above - Tobacco Use Smoking Status *Q: Never Smoker Second Hand Smoke Exposure: No - Caffeine Use Caffeine Use: Reports: Coffee (Occasional 2 times per month), Soda (3 sodas per week). 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 Denies: Wheezing, Cough, Sputum, Hemoptysis Cardiovascular: Reports: Blood Pressure Problem, Dyspnea on Exertion, Edema ( chronic), Lightheadedness. Denies: Claudication, Palpitations, Syncope GI/Abdominal: Reports: No Symptoms : Reports: No Symptoms Musculoskeletal: Reports: No Symptoms Skin: Reports: No Symptoms Neurological: Reports: Dizziness, Headache, Other (difficulty standing from sitting position. ) Psychiatric: Reports: No Symptoms Hematologic/Lymphatic: Reports: No Symptoms ED EXAM, GENERAL - Physical Exam Exam: See Below Exam Limited By: No Limitations General Appearance: Alert, WD/WN, No Apparent Distress Eye Exam: Bilateral Eye: EOMI, PERRL Ears: Normal External Exam, Normal Canal, Hearing Grossly Normal, Normal TMs Nose: Normal Inspection Throat/Mouth: Normal Inspection, Normal Lips, Normal Teeth, Normal Gums, Normal Oropharynx, Normal Voice, No Airway Compromise Head: Atraumatic, Normocephalic Neck: Normal Inspection, Supple, Non-Tender, Full Range of Motion Respiratory/Chest: No Respiratory Distress, Lungs Clear, Normal Breath Sounds, No Accessory Muscle Use, Other (mild tenderness with palpation anterior left lower rib margin) Cardiovascular: Normal Peripheral Pulses (is missing radial pulse on left due to previous surgery), No Murmur, Irregularly Irregular Peripheral Pulses: 0: Radial (R) (missing surgically. Ulnar is intact), 2+: Radial (L) GI/Abdominal: Normal Bowel Sounds, Soft, Non-Tender, Other (large abdomen) (Male) Exam: Deferred Rectal (Males) Exam: Deferred Back Exam: Normal Inspection Extremities: Non-Tender, Normal Capillary Refill, Pedal Edema (bilateral, 2+). No: Leg Pain, Increased Warmth, Mottled, Pallor Neurological: Alert, Oriented, Normal Cognition, No Motor/Sensory Deficits Psychiatric: Normal Affect, Normal Mood Skin Exam: Warm, Dry, Intact, Normal Color EKG INTERPRETATION EKG Date: 07/14/17 Time: 17:12 Rhythm: A-Fib Rate (Beats/Min): 98 [place]: Normal P-Wave: Variable QRS: Normal ST-T: Other (areas suggestive of depression noted in some ventricular leads/I/ AVL) Comparison: Change From Previous EKG (Aflutter noted on last EKG) Course - Vital Signs Last Recorded V/S: Last Vital Signs Temp 36.7 C 07/14/17 17:10 Pulse 74 07/14/17 18:25 Resp 18 07/14/17 18:25 BP 132/91 H 07/14/17 18:25 Pulse Ox 98 07/14/17 18:25 - Orders/Labs/Meds Orders: Active Orders 24 hr Category Date Time Status EKG Documentation Completion [RC] ASDIRECTED Care 07/14/17 17:19 Ordered Chest 2V [CR] Stat Exams 07/14/17 17:40 Ordered Head wo Cont [CT] Stat Exams 07/14/17 18:27 Ordered Sodium Chloride 0.9% [Saline Flush] Med 07/14/17 17:40 Ordered 10 ml FLUSH ASDIRECTED PRN Saline Lock Insert [OM.PC] Stat Oth 07/14/17 17:40 Ordered Medication Orders Sodium Chloride (Saline Flush) 10 ml FLUSH ASDIRECTED PRN PRN Reason: Keep Vein Open Last Admin: 07/14/17 18:14 Dose: 10 ml Labs: Laboratory Tests 07/14/17 07/14/17 07/14/17 Range/Units 17:20 17:20 17:20 WBC 9.9 (4.0-10.2) K/uL RBC 5.80 H (4.33-5.41) M/uL Hgb 17.3 H (13.1-16.8) g/dL Hct 48.7 (39.0-49.0) % MCV 84.0 (84.0-98.0) fL MCH 29.8 (28.2-33.3) pg MCHC 35.5 (31.7-36.0) g/dL RDW 14.9 H (11.2-14.1) % Plt Count 177 (150-350) K/uL Neut % (Auto) 42.9 L (45.0-80.0) % Lymph % (Auto) 44.4 (10.0-50.0) % [place] % (Auto) 11.3 (2.0-14.0) % Eos % (Auto) 1.2 (0.0-5.0) % Baso % (Auto) 0.2 (0.0-2.0) % Neut # (Auto) 4.27 (1.40-7.00) K/uL Lymph # (Auto) 4.41 H (0.50-3.50) K/uL [place] # (Auto) 1.12 H (0.00-1.00) K/uL Eos # (Auto) 0.12 (0.00-0.50) K/uL Baso # (Auto) 0.02 (0.00-0.20) K/uL PT 32.9 H D (9.8-11.7) SEC INR 3.0 D-Dimer, Quantitative (0-400) ng/mL Sodium 138 (136-145) mmol/L Potassium 3.7 (3.5-5.1) mmol/L Chloride 102 (98-107) mmol/L Carbon Dioxide 23.8 (21.0-32.0) mmol/L BUN 11 (7-18) mg/dL Creatinine 0.75 (0.51-1.17) mg/dL Est Cr Clr Drug Dosing 94.84 mL/min Estimated GFR (MDRD) > 60 mL/min Glucose 114 H (74-106) mg/dL Calcium 9.7 (8.5-10.1) mg/dL Magnesium 1.9 (1.8-2.4) mg/dL Total Bilirubin 0.7 (0.2-1.0) mg/dL AST 28 (15-37) U/L ALT 28 (12-78) U/L Alkaline Phosphatase 77 (46-116) IU/L Troponin I 0.122 H* (0.000-0.056) ng/mL NT-Pro-B Natriuret Pep 487 H (0-125) pg/mL Total Protein 8.1 (6.4-8.2) g/dL Albumin 4.0 (3.4-5.0) g/dL Specimen Type Urine Color Urine Appearance Urine pH (5.0-9.0) Ur Specific [place] (1.005-1.030) Urine Protein (NEGATIVE) mg/dL Urine Glucose (UA) (NEGATIVE) mg/dL Urine Ketones (NEGATIVE) mg/dL Urine Occult Blood (NEGATIVE) Urine Nitrite (NEGATIVE) Urine Bilirubin (NEGATIVE) Urine Urobilinogen (0.2-1.0) E.U./dL Ur Leukocyte Esterase (NEGATIVE) Urine RBC /HPF Urine WBC /HPF Ur Epithelial Cells /LPF Urine Bacteria (NONE TO FEW) /HPF 07/14/17 07/14/17 Range/Units 17:20 18:00 WBC (4.0-10.2) K/uL RBC (4.33-5.41) M/uL Hgb (13.1-16.8) g/dL Hct (39.0-49.0) % MCV (84.0-98.0) fL MCH (28.2-33.3) pg MCHC (31.7-36.0) g/dL RDW (11.2-14.1) % Plt Count (150-350) K/uL Neut % (Auto) (45.0-80.0) % Lymph % (Auto) (10.0-50.0) % [place] % (Auto) (2.0-14.0) % Eos % (Auto) (0.0-5.0) % Baso % (Auto) (0.0-2.0) % Neut # (Auto) (1.40-7.00) K/uL Lymph # (Auto) (0.50-3.50) K/uL [place] # (Auto) (0.00-1.00) K/uL Eos # (Auto) (0.00-0.50) K/uL Baso # (Auto) (0.00-0.20) K/uL PT (9.8-11.7) SEC INR D-Dimer, Quantitative < 100 (0-400) ng/mL Sodium (136-145) mmol/L Potassium (3.5-5.1) mmol/L Chloride (98-107) mmol/L Carbon Dioxide (21.0-32.0) mmol/L BUN (7-18) mg/dL Creatinine (0.51-1.17) mg/dL Est Cr Clr Drug Dosing mL/min Estimated GFR (MDRD) mL/min Glucose (74-106) mg/dL Calcium (8.5-10.1) mg/dL Magnesium (1.8-2.4) mg/dL Total Bilirubin (0.2-1.0) mg/dL AST (15-37) U/L ALT (12-78) U/L Alkaline Phosphatase (46-116) IU/L Troponin I (0.000-0.056) ng/mL NT-Pro-B Natriuret Pep (0-125) pg/mL Total Protein (6.4-8.2) g/dL Albumin (3.4-5.0) g/dL Specimen Type Urincc Urine Color Yellow Urine Appearance Clear Urine pH 5.0 (5.0-9.0) Ur Specific [place] >= 1.030 (1.005-1.030) Urine Protein Negative (NEGATIVE) mg/dL Urine Glucose (UA) Negative (NEGATIVE) mg/dL Urine Ketones Negative (NEGATIVE) mg/dL Urine Occult Blood Negative (NEGATIVE) Urine Nitrite Negative (NEGATIVE) Urine Bilirubin Negative (NEGATIVE) Urine Urobilinogen 0.2 (0.2-1.0) E.U./dL Ur Leukocyte Esterase Negative (NEGATIVE) Urine RBC 0-5 /HPF Urine WBC 0-5 /HPF Ur Epithelial Cells Rare /LPF Urine Bacteria Rare (NONE TO FEW) /HPF Meds: Medications Generic Name Dose Route Start Last Admin Trade Name Freq PRN Reason Stop Dose Admin Sodium Chloride 10 ml 07/14/17 17:40 07/14/17 18:14 Saline Flush FLUSH 10 ml ASDIRECTED PRN Administration Keep Vein Open Discontinued Medications Generic Name Dose Route Start Last Admin Trade Name Freq PRN Reason Stop Dose Admin Labetalol HCl 10 mg 07/14/17 17:45 07/14/17 18:10 Normodyne IVPUSH 07/14/17 17:46 Not Given ONETIME ONE Protocol Labetalol HCl 5 mg 07/14/17 18:08 07/14/17 18:10 Normodyne IVPUSH 07/14/17 18:09 5 mg ONETIME ONE Administration Protocol - Radiology Interpretation Free Text/Narrative:: Chest films showed no acute changes when compared to previous films. No pneumo/ enlargement/infiltrates - Re-Assessments/Exams Free Text/Narrative Re-Assessment/Exam: 07/14/17 18:45 Elevated Troponin noted at 0.122 BNP elevated at 487 Hgb and UA SG gravity elevated suggestive of dehydration. Normal DDImer. Discussed patient with [facility]. Given history of multiple episodes of meningitis, patient may need tap which can be performed there. Elevated troponin may be due to cardiac injury given changes in EKG, however patient remains free of chest pain complaints. Cannot rule out contribution to Troponin from mild CHF. Patient continues to refuse transfer by ambulance and because of this Hospitalist wanted patient to go through the ER. from the ER accepted the patient in transfer. He will be transferred by his family to [facility]. BP improved after small dose of Beta [place]odi. No change noted in feeling of head pressure. [facility] is considering head CT at their facility but did not feel that we needed to perform one here prior to transfer. Departure - Departure Time of Disposition: 18:51 Disposition: DC/Tfer to Acute Hospital 02 Reason for Transfer *Q: Primary PCI Indicated Clinical Impression: Dizziness, Shortness of breath, Elevated troponin Hypertension Qualifiers: Hypertension type: essential hypertension Qualified Code(s): I10 - Essential ( primary) hypertension Headache Qualifiers: Headache type: unspecified Headache chronicity pattern: unspecified pattern Intractability: intractable Qualified Code(s): R51 - Headache Referrals: Anita Gar PA-C [Primary Care Provider] - Forms: ED Department Discharge - My Orders Last 24 Hours: My Active Orders 07/14/17 17:19 EKG Documentation Completion [RC] ASDIRECTED 07/14/17 17:40 Chest 2V [CR] Stat Sodium Chloride 0.9% [Saline Flush] 10 ml FLUSH ASDIRECTED PRN Saline Lock Insert [OM.PC] Stat 07/14/17 18:27 Head wo Cont [CT] Stat - Assessment/Plan Last 24 Hours: My Active Orders 07/14/17 17:19 EKG Documentation Completion [RC] ASDIRECTED 07/14/17 17:40 Chest 2V [CR] Stat Sodium Chloride 0.9% [Saline Flush] 10 ml FLUSH ASDIRECTED PRN Saline Lock Insert [OM.PC] Stat 07/14/17 18:27 Head wo Cont [CT] Stat
[2017-07-14 19:20] VITALS: BP 135/84
== END 2017-07-14 19:15 ==
LOC: LL.ED 17:07
DX: I11.0 Hypertensive heart disease with heart failure (principal); I50.9 Heart failure, unspecified; R06.02 Shortness of breath; J44.9 Chronic obstructive pulmonary disease, unspecified; I25.10 Atherosclerotic heart disease of native coronary artery without angina pectoris; Z79.82 Long term (current) use of aspirin; Z79.899 Other long term (current) drug therapy; Z88.8 Allergy status to other drugs, medicaments and biological substances; Z95.1 Presence of aortocoronary bypass graft
CPT/HCPCS: 36415; 71020; 80053; 81001; 83735; 83880; 84484; 85025; 85379; 85610; 93005; 96374; 99285; J7050; 93010; A9270-GY

== ENCOUNTER 2018-08-11 16:37 | Inpatient (IN) | payer MEDICARE, OTHER ==
[2018-08-11] MEDS ORDERED: Famotidine 20 MG/2 ML SDV IVPUSH ONE (16:47)
--- NOTE | 2018-08-11 16:47 | EDM.PDOC ---
ED HPI GENERAL MEDICAL PROBLEM - General Chief Complaint: General Stated Complaint: High INR, Weakness Time Seen by Provider: 08/11/18 16:40 Source of Information: Reports: Patient, Old Records ([facility] chart/EMR), Other ([facility]) History Limitations: Reports: No Limitations - History of Present Illness INITIAL COMMENTS - FREE TEXT/NARRATIVE: The patient was brought to the emergency room via private automobile by his son for evaluation of apparently elevated INR greater than 8, which was diagnosed by his regular provider, Anita Benton PA-C, at [facility], after discharge from [facility] on 08/09/18 for CHF and pneumonia. Note that he was hospitalized in this facility for similar problems and transferred to that facility on 08/06 secondary to refractory response to therapy. He is also felt somewhat fatigued and weak since hospital discharge with history of recurrent falls in the past, including borderline threatening fall at his primary provider earlier today without true fall or injury. The patient denies any chest pain/pressure, heart flutter, dizziness, orthostasis, orthopnea, diaphoresis, paresthesias, recent decreased exercise tolerance, or any other anginal-type symptoms. No recent history of abdominal pain, heartburn , nausea, diarrhea, melena, or any food intolerance, including fatty foods, etc. however minimal gross hematochezia or leave this morning with his bowel movement. He denies any gross hematuria, colic, or other UTI symptoms. The patient also denies any recent fever, cough, wheezing, dyspnea, etc.. No history of other pain or discomfort. Onset: Gradual Onset Date: 08/10/18 Duration: Constant (Fatigue and weakness), Getting Worse Location: Reports: Generalized, Other (No pain) Quality: Reports: Same as Previous Episode Severity: Moderate Improves with: Reports: None Worsens with: Reports: None Context: Reports: Other (As above). Denies: Sick Contact, Trauma Associated Symptoms: Reports: Weakness. Denies: Confusion, Chest Pain, Cough, cough w sputum, Diaphoresis, Fever/Chills, Headaches, Loss of Appetite, Malaise , Nausea/Vomiting, Seizure, Shortness of Breath, Syncope Treatments PURIFICATION OPERATOR: Reports: Other (see below) (None) - Related Data Allergies Allergy/AdvReac Type Severity Reaction Status Date / Time lisinopril Allergy Cough Verified 08/11/18 18:00 Home Meds: Home Meds Acetaminophen 1,000 mg PO TID PRN 03/14/17 [History] Aspirin [Halfprin] 81 mg PO DAILY 03/14/17 [History] Docusate Sodium 250 mg PO DAILY 03/14/17 [History] Furosemide 20 mg PO 12 03/14/17 [History] Furosemide 40 mg PO QAM 03/14/17 [History] Metoprolol Succinate [Toprol XL] 50 mg PO BEDTIME 03/14/17 [History] Metoprolol Succinate [Toprol XL] 100 mg PO QAM 03/14/17 [History] Multivitamin [Daily Multiple Vitamin] 1 tab PO DAILY 03/14/17 [History] Nitroglycerin [Nitrostat] 0.4 mg SL ASDIRECTED 03/14/17 [History] Omeprazole 20 mg PO DAILY 03/14/17 [History] Potassium Chloride [Klor-Con 10] 10 meq PO DAILY 03/14/17 [History] Warfarin [Coumadin] 2.5 mg PO DAILY 03/14/17 [History] buPROPion [Wellbutrin SR] 150 mg PO BID@,12 03/14/17 [History] Amiodarone [Cordarone] 200 mg PO DAILY 07/14/17 [History] Metolazone [Zaroxolyn] 2.5 mg PO ASDIRECTED 07/14/17 [History] atorvaSTATin [Lipitor] 20 mg PO DAILY 07/14/17 [History] Levofloxacin [Levaquin] 750 mg PO DAILY 08/11/18 [History] Past Medical History HEENT History: Reports: Hard of Hearing, Impaired Vision, Other (See Below). Denies: Allergic Rhinitis, Cataract, Glaucoma, Macular Degeneration, Otitis Media, Retinal Detachment Other HEENT History: Patient wears glasses including reading glasses, bilateral presbycusis no current hearing aid therapy Cardiovascular History: Reports: Afib, Aneurysm, Arrhythmia, Bypass, CAD, Cardiomyopathy, Heart Failure, Heart Murmur, High Cholesterol, Hypertension, DE , Other (See Below). Denies: Blood Clots/VTE/DVT, Pacemaker, PTCA, Pulmonary Hypertension, PVD, Stents, Syncope Other Cardiovascular History: Sinus tachycardia with first-degree AV block with d-dimer elevation on 02/03/15, with previous first degree AV block and incomplete/ complete right bundle branch block, known previous history of intermittent atrial fibrillation/flutter with current Coumadin therapy. PACs, PVCs, couplets , and short runs of supraventricular tachycardia. Moderate cardiomegaly and left ventricular enlargement with grade 1 diastolic dysfunction. Mild to moderate aortic valve insufficiency and mild mitral valve insufficiency. Respiratory History: Reports: Bronchitis, Recurrent, COPD, Intubation, Previous , Pneumonia, Recurrent, Pulmonary Fibrosis, Other (See Below). Denies: Asthma, Intubation, Difficult, PE, Pneumothorax, Sleep Apnea, TB Other Respiratory History: COPD and pulmonary fibrosis by chest x-ray Gastrointestinal History: Reports: Cholelithiasis, Chronic Constipation, Chronic Diarrhea, Diverticulosis, GERD, Hemorrhoids, Other (See Below). Denies : Celiac Disease, Colon Polyp, Fecal Incontinence, Gastritis, GI Bleed, Hepatitis, Hiatal Hernia, Inflammatory Bowel Disease, Irritable Bowel Syndrome, Jaundice, PUD Other Gastrointestinal History: Chronic constipation with previous history of Chronic diarrhea with occasional 45 bowel movements per day, diverticulosis by colonoscopy hemorrhoids with chronic mild gross hematochezia, duodenal diverticulum by EGD, LFTs elevation and hyperbilirubinemia on 02/03/15 with possible history of fatty liver Genitourinary History: Reports: BPH, Prostate Disorder, Urinary Incontinence, Other (See Below). Denies: Acute Renal Failure, Chronic Renal Insuffiency, Renal Calculus, STD, UTI, Recurrent Other Genitourinary History: Nodular BPH with PSA elevation Musculoskeletal History: Reports: Arthritis, Back Pain, Chronic, Fracture, Neck Pain, Chronic, Osteoarthritis, Other (See Below). Denies: Osteoporosis Other Musculoskeletal History: Left distal ulnar and proximal fifth metatarsal fracture on 06/02/18. 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 Neurological History: Reports: Concussion, Headaches, Chronic, Neuropathy, Peripheral, Other (See Below). Denies: Cerebral Aneurysms, CVA, Migraines, MS, Parkinson's, Seizure, TIA, Vertigo Other Neuro History: Concussion on 08/14/12, chronic headaches secondary to previous meningitis. History of recurrent falls and generalized weakness. Psychiatric History: Reports: Anxiety, Depression, Psych Hospitalization(s), Suicidal Ideation, Other (See Below). Denies: Abuse, Victim of, ADD, ADHD, Addiction, PTSD Other Psychiatric History: Previous mild suicidal ideation with brief hospitalization in the 1980s Endocrine/Metabolic History: Reports: Obesity/BMI 30+. Denies: Diabetes, Type I , Diabetes, Type II, Diabetes Mellitus, Type 3c, Hypothyroidism, IDDM, Osteopenia, Osteoporosis Hematologic History: Reports: None, Other (See Below). Denies: Anemia, Blood Transfusion(s) Other Hematologic History: No blood transfusions including with CABG by his history Immunologic History: Reports: None. Denies: AIDS, HIV, SLE Oncologic (Cancer) History: Reports: Other (See Below). Denies: Hodgkin's Lymphoma, Leukemia, Lymphoma, Non-Hodgkin's Lymphoma, Prostate Other Oncologic History: Unknown type of skin cancer in the facial region treated with cryotherapy Dermatologic History: Reports: Venous Stasis Dermatitis. Denies: Eczema, Psoriasis - Infectious Disease History Infectious Disease History: Reports: Chicken Pox, Measles, Meningitis (spinal meningitis in the 1970s). Denies: C-Difficile, Mononucleosis, MRSA, Mumps, Pertussis (Whooping Cough), Rubella, Scarlet Fever, Shingles, TB, VRE - Past Surgical History Head Surgeries/Procedures: Reports: None HEENT Surgical History: Reports: Oral Surgery, Other (See Below). Denies: Adenoidectomy, Cataract Surgery, Eye Surgery, Laser Surgery, LASIK, Myringotomy w Tube(s), Naso-Sinus Surgery, Tonsillectomy Other HEENT Surgeries/Procedures: Multiple teeth extractions Cardiovascular Surgical History: Reports: Coronary Artery Bypass, Other (See Below). Denies: Varicose Other Cardiovascular Surgeries/Procedures: CABG 4 on 08/19/14 Respiratory Surgical History: Reports: None. Denies: Thoracentesis GI Surgical History: Reports: Cholecystectomy, Colonoscopy, EGD, Other (See Below). Denies: Appendectomy, Hernia, Abdominal, Hernia, Inguinal, Hernia Repair/Other Other GI Surgeries/Procedures: Laparoscopic cholecystectomy on 02/04/15, EGD on 18/04, last colonoscopy on 10/16/08 Male Surgical History: Reports: None. Denies: Circumcision, TURP- Transurethral Resection of Prostate, Vasectomy Endocrine Surgical History: Reports: None Neurological Surgical History: Reports: None. Denies: C-Spine, Discectomy, Laminectomy, Lumbar Spine, Sacral Spine, Spinal Fusion, Thoracic Spine, Vertebroplasty Musculoskeletal Surgical History: Reports: None. Denies: Arthroscopic Procedure , Carpal Tunnel, Ganglion Cyst, Joint Replacement, ORIF, Shoulder Surgery Oncologic Surgical History: Reports: None Dermatological Surgical History: Reports: None - Past Imaging History Past Imaging History: Reports: Angiography (Heart catheterization on 05/11/16.) , Cardiac Echo (Last echocardiogram on 08/06/18 showing only mild valvular disease and findings as above with improved ejection fraction of 65% in comparison to only 3035 percent at time of echocardiogram on 03/15/17.), CAT Scan (CT of the abdomen and pelvis on 06/04/18. CT of the chest on 03/14/15. CT of the brain on 08/14/12), Holter Monitor (05/11/16), MRI (MRI of the brain on . MRI of the lumbar spine on 07/18/17 and 01/28/10.), Stress Testing (Low level cardiac stress test on 10/01/14), Swallow Study (03/16/18), Venous Doppler ( Right leg on 07/06/17. Left leg on 01/09/14) Social & Family History - Family History HEENT: Reports: None. Denies: Cataract, Glaucoma, Macular Degeneration, Retinal Detachment Cardiac: Reports: CAD, Heart Failure, High Cholesterol, DE, Other (See Below). Denies: Afib, Aneurysm, Arrhythmia, Blood Clots/VTE/DVT, Bypass, Hypertension, Pacemaker, PVD/COD, Stent, Syncope Other Cardiac Family History: Father with fatal DE and CHF likely secondary to renal failure and intolerance of dialysis at age 81, mother with fatal DE at age 79, brother with fatal DE at about age 83, brother with fatal DE in his 70s , brother with fatal DE at age 52, mother with hyperlipidemia Respiratory: Reports: None. Denies: COPD, PE, Pneumothorax, Sleep Apnea GI: Reports: None. Denies: Celiac Disease, Colon Polyps, GERD, GI bleed, Inflammatory Bowel Disease, Irritable Bowel Syndrome, PUD : Reports: Dialysis, Renal Disease/Insufficiency, Other (See Below) Other Family History: Father with acute renal failure and unsuccessful dialysis OBGYN: Reports: None Musculoskeletal: Reports: None. Denies: Gout, RA, SLE Neurological: Reports: Alzheimers Disease, Dementia, Other (See Below). Denies : CVA, Migraines, MS, Parkinson's, Seizure, TIA Other Neurological Family History: Sister with fatal dementia in her 70s Psychiatric: Reports: None. Denies: Abuse, Victim of, ADD, ADHD, Anxiety, Depression, Psych Hospitalization(s), PTSD, Suicide Attempt Endocrine/Metabolic: Reports: Hypothyroidism, Other (See Below). Denies: Diabetes, Type I, Diabetes, type II Other Endocrine/Metabolic Family History: Sister with hypothyroidism Hematologic: Reports: None. Denies: Anemia, SLE Immunologic: Reports: None. Denies: AIDS, HIV, SLE Dermatologic: Reports: None. Denies: Eczema, Psoriasis Oncologic: Reports: Lung, Prostate, Other (See Below). Denies: Colon, Hodgkin' s Lymphoma, Leukemia, Lymphoma, Non-Hodgkin's Lymphoma, Pancreatic, Skin Other Oncologic Family History: Sister with fatal lung cancer in her late 60s with no previous tobacco use, brother with prostate cancer in his 70s however he from an DE as above - Tobacco Use Smoking Status *Q: Never Smoker Tobacco Use Within Last Twelve Months: No Used Tobacco, but Quit: No Smoking Cessation Information Provided To Patient: No Second Hand Smoke Exposure: No Second Hand Smoke Education Provided: No - Caffeine Use Caffeine Use: Reports: Soda Other Caffeine Use: soda 3 times/week - Alcohol Use Alcohol Use History: No Days Per Week of Alcohol Use: 0 Number of Drinks Per Day: 1 Number of Drinks Per Day Comment: Usually beer on a monthly basis. No previous DWIs, problems with alcohol abuse, etc. 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 ED EXAM, GENERAL - Physical Exam Exam: See Below Exam Limited By: No Limitations General Appearance: Alert, WD/WN, No Apparent Distress Eye Exam: Bilateral Eye: EOMI, Normal Inspection (No nystagmus), PERRL Ears: Normal External Exam, Normal Canal, Normal TMs, Hearing Loss (Mild Bilateral presbycusis with no hearing aids) Nose: Normal Mucosa, No Blood, Clear Rhinorrhea (Mild bilateral) Throat/Mouth: Normal Inspection, Normal Lips, Normal Teeth (Occasional missing teeth with no acute caries), Normal Gums, Normal Oropharynx, Normal Voice, No Airway Compromise. No: Dysphagia, Perioral Cyanosis Head: Atraumatic, Normocephalic. No: Facial Swelling, Facial Tenderness, Sinus Tenderness Neck: Supple, Full Range of Motion, Carotid Bruit (Bilateral carotid bruits versus transmitted heart sounds). No: Lymphadenopathy (L), Lymphadenopathy (R) , Thyromegaly Respiratory/Chest: No Respiratory Distress, No Accessory Muscle Use, Chest Non- Tender, Rales (Moderate diffuse bilateral rales right greater than left). No: Rhonchi, Wheezing, Pleural Rub, Retractions Cardiovascular: Normal Peripheral Pulses, No Edema (Dependent edema as below), No JVD, No Rub, Systolic Murmur (Mild 1/6 ERIN of the aortic and mitral valves), Irregularly Irregular. No: Tachycardia, Diastolic Murmur (Aortic insufficiency murmur not appreciated), Gallop/S3, Gallop/S4 Peripheral Pulses: 2+: Radial (L), Radial (R), Dorsalis Pedis (L), Dorsalis Pedis (R) GI/Abdominal: Normal Bowel Sounds, Soft, Non-Tender, No Organomegaly, No Distention, No Abnormal Bruit, No Mass, Pelvis Stable, Other (Obese). No: Guarding (Male) Exam: Deferred Rectal (Males) Exam: Deferred Back Exam: Normal Inspection, Full Range of Motion. No: CVA Tenderness (L), CVA Tenderness (R), Muscle Spasm Extremities: Normal Range of Motion, Non-Tender, Pedal Edema (Trace to +1 bilateral pedal/pretibial edema). No: Shaniqua's Sign Neurological: Alert, Oriented, CN II-XII Intact, Normal Cognition, Normal Gait, Normal Reflexes (Negative Babinski's), No Motor/Sensory Deficits Psychiatric: Normal Affect, Normal Mood Skin Exam: Warm, Dry, Intact, Ecchymosis (At IV sites and blood draw sites). No : Diaphoretic, Petechiae, Wound/Incision Lymphatic: No Adenopathy EKG INTERPRETATION EKG Date: 08/11/18 Time: 17:22 Rhythm: A-Flutter Rate (Beats/Min): 87 [place]: Normal (Left cardiac axis) P-Wave: Variable QRS: RBBB (QRS interval 0.12 seconds representing a complete right bundle branch block/bifascicular bundle-branch block with poor R-wave progression in the anterior leads) ST-T: Other (Table diffuse downsloping nonspecific ST changes including T wave inversions in leads 1, 2, 3, aVL, and aVF with resolution of T-wave inversions in leads V1V2 and V4 through V6 since last EKG on 08/04/18) QT: Normal NE/PQ Interval: Not applicable Comparison: Change From Previous EKG (As above) EKG Interpretation Comments: 1. Probable diffuse coronary ischemia with improvement of lateral ischemia 2. Atrial fibrillation/flutter Course - Vital Signs Last Recorded V/S: Last Vital Signs Temp 36.5 C 08/11/18 16:40 Pulse 91 08/11/18 19:00 Resp 25 H 08/11/18 19:00 BP 134/71 08/11/18 19:00 Pulse Ox 95 08/11/18 19:00 Vital Signs - 24 hr 08/11/18 08/11/18 08/11/18 16:40 17:15 17:40 Temperature [ 36.5 C Temporal] Pulse, 95 90 Peripheral [ Pulse Oximetry] Respiratory 16 20 16 Rate Blood Pressure 156/85 H 128/68 129/77 [Left Upper Arm ] O2 Sat by Pulse 92 L 92 L 92 L Oximetry 08/11/18 08/11/18 08/11/18 18:07 18:36 19:00 Temperature [ Temporal] Pulse, 89 91 Peripheral [ Pulse Oximetry] Respiratory 20 25 H Rate Blood Pressure 130/76 136/90 134/71 [Left Upper Arm ] O2 Sat by Pulse 94 L 94 L 95 Oximetry - Orders/Labs/Meds Orders: Active Orders 24 hr Category Date Time Status Cardiac Monitoring [RC] . DIRECTED Care 08/11/18 16:47 Active EKG Documentation Completion [RC] ASDIRECTED Care 08/11/18 16:47 Active Oxygen Therapy, ED [RC] PRN Care 08/11/18 16:47 Active Peripheral IV Care [RC] . DIRECTED Care 08/11/18 16:47 Active Pulse Oximetry [RC] CONTINUOUS Care 08/11/18 16:47 Active Up With Assistance [RC] PFP Care 08/11/18 16:47 Active Vital Signs [RC] PFP Care 08/11/18 16:47 Active Nothing per Oral Now Diet [DIET] Diet 08/11/18 Breakfast Active Chest 1V Frontal [CR] Stat Exams 08/11/18 16:47 Taken Sodium Chloride 0.9% [Saline Flush] Med 08/11/18 16:47 Active 10 ml FLUSH ASDIRECTED PRN Obtain Past Medical Record [OM.PC] Urgent Oth 08/11/18 16:47 Active Peripheral IV Insertion Adult [OM.PC] Stat Oth 08/11/18 16:47 Ordered Resuscitation Status Stat Resus Stat 08/11/18 16:47 Ordered EKG 12 Lead [EK] Stat Ther 08/11/18 16:47 Ordered Medication Orders Sodium Chloride (Saline Flush) 10 ml FLUSH ASDIRECTED PRN PRN Reason: Keep Vein Open Labs: Laboratory Tests 08/11/18 08/11/18 08/11/18 Range/Units 17:00 17:00 17:00 WBC 11.2 H (4.0-10.2) K/uL RBC 5.63 H (4.33-5.41) M/uL Hgb 16.9 H (13.1-16.8) g/dL Hct 48.2 (39.0-49.0) % MCV 85.6 (84.0-98.0) fL MCH 30.0 (28.2-33.3) pg MCHC 35.1 (31.7-36.0) g/dL RDW 15.6 H (11.2-14.1) % Plt Count 243 D (150-350) K/uL Neut % (Auto) 69.4 (45.0-80.0) % Lymph % (Auto) 18.1 (10.0-50.0) % [place] % (Auto) 10.8 (2.0-14.0) % Eos % (Auto) 1.5 (0.0-5.0) % Baso % (Auto) 0.2 (0.0-2.0) % Neut # (Auto) 7.79 H (1.40-7.00) K/uL Lymph # (Auto) 2.03 (0.50-3.50) K/uL [place] # (Auto) 1.21 H (0.00-1.00) K/uL Eos # (Auto) 0.17 (0.00-0.50) K/uL Baso # (Auto) 0.02 (0.00-0.20) K/uL PT 101.5 H D (9.5-12.0) SEC INR 9.4 H* APTT 50.6 H (21.0-31.3) SEC Sodium 135 L (136-145) mmol/L Potassium 4.0 (3.5-5.1) mmol/L Chloride 101 (98-107) mmol/L Carbon Dioxide 24.4 (21.0-32.0) mmol/L BUN 14 (7-18) mg/dL Creatinine 0.78 (0.51-1.17) mg/dL Est Cr Clr Drug Dosing 89.81 mL/min Estimated GFR (MDRD) > 60 mL/min Glucose 97 (74-106) mg/dL Lactic Acid (0.4-2.0) mmol/L Uric Acid 3.0 (2.6-7.2) mg/dL Calcium 9.0 (8.5-10.1) mg/dL Magnesium 2.0 (1.8-2.4) mg/dL Total Bilirubin 0.8 (0.2-1.0) mg/dL AST 77 H (15-37) U/L ALT 108 H (12-78) U/L Alkaline Phosphatase 108 (46-116) IU/L Creatine Kinase 150 (26-308) U/L Creatine Kinase Index 2.8 H (0.0-2.5) % CK-MB (CK-2) 4.20 H (0.00-3.60) ng/mL Troponin I 0.025 (0.000-0.056) ng/mL NT-Pro-B Natriuret Pep 1207 H (0-125) pg/mL Total Protein 7.6 (6.4-8.2) g/dL Albumin 2.8 L (3.4-5.0) g/dL TSH, Ultra Sensitive 0.645 (0.358-3.740) mIU/mL 08/11/18 Range/Units 17:00 WBC (4.0-10.2) K/uL RBC (4.33-5.41) M/uL Hgb (13.1-16.8) g/dL Hct (39.0-49.0) % MCV (84.0-98.0) fL MCH (28.2-33.3) pg MCHC (31.7-36.0) g/dL RDW (11.2-14.1) % Plt Count (150-350) K/uL Neut % (Auto) (45.0-80.0) % Lymph % (Auto) (10.0-50.0) % [place] % (Auto) (2.0-14.0) % Eos % (Auto) (0.0-5.0) % Baso % (Auto) (0.0-2.0) % Neut # (Auto) (1.40-7.00) K/uL Lymph # (Auto) (0.50-3.50) K/uL [place] # (Auto) (0.00-1.00) K/uL Eos # (Auto) (0.00-0.50) K/uL Baso # (Auto) (0.00-0.20) K/uL PT (9.5-12.0) SEC INR APTT (21.0-31.3) SEC Sodium (136-145) mmol/L Potassium (3.5-5.1) mmol/L Chloride (98-107) mmol/L Carbon Dioxide (21.0-32.0) mmol/L BUN (7-18) mg/dL Creatinine (0.51-1.17) mg/dL Est Cr Clr Drug Dosing mL/min Estimated GFR (MDRD) mL/min Glucose (74-106) mg/dL Lactic Acid 2.4 H (0.4-2.0) mmol/L Uric Acid (2.6-7.2) mg/dL Calcium (8.5-10.1) mg/dL Magnesium (1.8-2.4) mg/dL Total Bilirubin (0.2-1.0) mg/dL AST (15-37) U/L ALT (12-78) U/L Alkaline Phosphatase (46-116) IU/L Creatine Kinase (26-308) U/L Creatine Kinase Index (0.0-2.5) % CK-MB (CK-2) (0.00-3.60) ng/mL Troponin I (0.000-0.056) ng/mL NT-Pro-B Natriuret Pep (0-125) pg/mL Total Protein (6.4-8.2) g/dL Albumin (3.4-5.0) g/dL TSH, Ultra Sensitive (0.358-3.740) mIU/mL Meds: Medications Generic Name Dose Route Start Last Admin Trade Name Freq PRN Reason Stop Dose Admin Sodium Chloride 10 ml 08/11/18 16:47 Saline Flush FLUSH ASDIRECTED PRN Keep Vein Open Discontinued Medications Generic Name Dose Route Start Last Admin Trade Name Freq PRN Reason Stop Dose Admin Famotidine 40 mg 08/11/18 16:47 08/11/18 17:48 Pepcid IVPUSH 08/11/18 16:48 40 mg ONETIME ONE Administration Furosemide 60 mg 08/11/18 18:22 Lasix IVPUSH 08/11/18 18:23 NOW ONE Phytonadione 5 mg/ Sodium 50.5 mls @ 100 mls/hr 08/11/18 18:09 08/11/18 18:18 Chloride IV 08/11/18 18:39 100 mls/hr NOW ONE Administration Phytonadione Confirm 08/11/18 18:20 08/11/18 19:24 Aquamephyton Administered 08/11/18 18:21 Not Given Dose 10 mg .ROUTE .[employer]-MED ONE - Radiology Interpretation Free Text/Narrative:: Heart monitor showed atrial fibrillation/flutter with average heart rate in the 80s with no ectopy or arrhythmia Chest x-ray, portable, shows moderate cardiomegaly and some mild prominence of the proximal aortic arch. Moderate right upper lobe pulmonary infiltrates and consolidations with additional moderate CHF. Moderate COPD and pulmonary fibrotic changes also noted. No pneumothorax. Departure - Departure Time of Disposition: 19:35 Disposition: Admitted As Inpatient 68 Condition: Fair Clinical Impression: Mixed anxiety depressive disorder, Peptic reflux disease, Renal insufficiency, Elevated INR, Hypoalbuminemia, Hyponatremia, Elevated liver function tests, Lactic acid increased CHF (congestive heart failure) Qualifiers: Heart failure type: combined systolic and diastolic Heart failure chronicity: acute on chronic Qualified Code(s): I50.43 - Acute on chronic combined systolic (congestive) and diastolic (congestive) heart failure Afib Qualifiers: Atrial fibrillation type: chronic Qualified Code(s): I48.2 - Chronic atrial fibrillation COPD (chronic obstructive pulmonary disease) Qualifiers: COPD type: emphysema Emphysema type: panlobular Qualified Code(s): J43.1 - Panlobular emphysema Hypertension Qualifiers: Hypertension type: essential hypertension Qualified Code(s): I10 - Essential ( primary) hypertension Osteoarthritis Qualifiers: Osteoarthritis location: multiple joints Osteoarthritis type: primary Qualified Code(s): M15.0 - Primary generalized (osteo)arthritis Coronary artery disease Qualifiers: Coronary Disease-Associated Artery/Lesion type: bypass graft [place] vs. transplanted heart: [place] heart Associated angina: without angina Qualified Code(s): I25.810 - Atherosclerosis of coronary artery bypass graft(s) without angina pectoris - Discharge Information *PRESCRIPTION DRUG MONITORING PROGRAM REVIEWED*: Not Applicable *COPY OF PRESCRIPTION DRUG MONITORING REPORT IN PATIENT REBECCA: Not Applicable - Problem List & Annotations (1) CHF (congestive heart failure) SNOMED Code(s): 03018739 Code(s): I50.9 - HEART FAILURE, UNSPECIFIED Status: Acute Priority: High Current Visit: Yes Onset Date: ~08/02/18 Annotation/Comment:: Refractory with prolonged hospitalizations required both in this facility and [facility] as above. High-dose IV Lasix once again initiated in the emergency room. Note recent echocardiogram as above. No chest pain or anginal type symptoms. Repeat blood work in the a.m. Qualifiers: Heart failure type: combined systolic and diastolic Heart failure chronicity: acute on chronic Qualified Code(s): I50.43 - Acute on chronic combined systolic (congestive) and diastolic (congestive) heart failure (2) Pneumonia SNOMED Code(s): 619971904 Code(s): J18.9 - PNEUMONIA, UNSPECIFIED ORGANISM Status: Acute Priority: High Current Visit: No Onset Date: 08/04/18 Annotation/Comment:: Refractory pneumonia as above. Initiate IV vancomycin initially with delay of further antibiotics for now secondary to patient's elevated INR. Consider additional IV Rocephin therapy after INR has become therapeutic. Attempt to obtain sputum JANAK. Qualifiers: Pneumonia type: due to unspecified organism Laterality: right Lung location: middle lobe of lung Qualified Code(s): J18.1 - Lobar pneumonia, unspecified organism (3) Elevated INR SNOMED Code(s): 654864670 Code(s): R79.1 - ABNORMAL COAGULATION PROFILE Status: Acute Priority: High Current Visit: Yes Onset Date: 08/11/18 Annotation/Comment:: He was discharged on high-dose oral Levaquin therapy from [facility] on 08/09 with secondary significantly elevated INR. He did take his Coumadin today. IV vitamin K given in the emergency room with repeat INR in 2 hours and in the a.m. (4) Lactic acid increased SNOMED Code(s): 06375594 Code(s): E87.2 - ACIDOSIS Status: Acute Priority: High Current Visit: Yes Onset Date: 08/11/18 Annotation/Comment:: Lactic acid to be repeated in 2 hours in the a.m. No clinical evidence of sepsis. (5) Afib SNOMED Code(s): 10365478 Code(s): I48.91 - UNSPECIFIED ATRIAL FIBRILLATION Status: Acute Priority : High Current Visit: Yes Annotation/Comment:: Elevated INR as above. Qualifiers: Atrial fibrillation type: chronic Qualified Code(s): I48.2 - Chronic atrial fibrillation (6) Coronary artery disease SNOMED Code(s): 82630795 Code(s): I25.10 - ATHSCL HEART DISEASE OF [place] CORONARY ARTERY W/O ANG PCTRS Status: Acute Priority: Medium Current Visit: Yes Annotation/ Comment:: Negative workup for acute DE during recent hospitalization in this facility. No chest pain or anginal type symptoms. Note evidence of diffuse probable coronary artery disease. Repeat cardiac enzymes and EKG in the a.m. Chest pain protocol was not initiated upon patient's arrival to the emergency room secondary to absence of cardiac type symptoms. Cardiology consultation on an as-needed basis with cardiac workup in the near future advisable prior to any surgery as below. Qualifiers: Coronary Disease-Associated Artery/Lesion type: bypass graft [place] vs. transplanted heart: [place] heart Associated angina: without angina Qualified Code(s): I25.810 - Atherosclerosis of coronary artery bypass graft(s) without angina pectoris (7) Hypertension SNOMED Code(s): 98710295 Code(s): I10 - ESSENTIAL (PRIMARY) HYPERTENSION Status: Chronic Priority : Medium Current Visit: Yes Annotation/Comment:: Blood pressure stable during emergency room treatment. Observe blood pressures closely secondary to patient's history of recurrent falls and IV Lasix therapy as above. Qualifiers: Hypertension type: essential hypertension Qualified Code(s): I10 - Essential (primary) hypertension (8) Mixed anxiety depressive disorder SNOMED Code(s): 583944870 Code(s): F41.8 - OTHER SPECIFIED ANXIETY DISORDERS Status: Chronic Priority: Medium Current Visit: Yes Annotation/Comment:: Stable by history. Continue to observe closely during this hospitalization and on an outpatient basis. (9) Osteoarthritis SNOMED Code(s): 465265295 Code(s): M19.90 - UNSPECIFIED OSTEOARTHRITIS, UNSPECIFIED SITE Status: Chronic Priority: Medium Current Visit: Yes Annotation/Comment:: Stable by history with PT and OT once again ordered as in previous recent hospitalization this facility. Note patient is planning possible left total knee arthroplasty in the near future. Cardiac workup advised prior to the surgery secondary to his recurrent CHF. Note recent echocardiogram as above. Qualifiers: Osteoarthritis location: multiple joints Osteoarthritis type: primary Qualified Code(s): M15.0 - Primary generalized (osteo)arthritis (10) Elevated liver function tests SNOMED Code(s): 941050888, 727695453 Code(s): R79.89 - OTHER SPECIFIED ABNORMAL FINDINGS OF BLOOD CHEMISTRY Status: Chronic Priority: Medium Current Visit: Yes Annotation/Comment:: Likely secondary to his CHF and hyperlipidemia. Continue to observe closely. (11) COPD (chronic obstructive pulmonary disease) SNOMED Code(s): 48132371 Code(s): J44.9 - CHRONIC OBSTRUCTIVE PULMONARY DISEASE, UNSPECIFIED Status : Chronic Priority: Medium Current Visit: Yes Annotation/Comment:: Continue aggressive nebulizer treatments during this hospitalization with additional incentive spirometry Qualifiers: COPD type: emphysema Emphysema type: panlobular Qualified Code(s): J43.1 - Panlobular emphysema (12) Peptic reflux disease SNOMED Code(s): 221716313 Code(s): K21.9 - GASTRO-ESOPHAGEAL REFLUX DISEASE WITHOUT ESOPHAGITIS Status: Chronic Priority: Medium Current Visit: Yes Annotation/Comment:: Stable by history (13) Recurrent falls SNOMED Code(s): 094234196 Code(s): R29.6 - REPEATED FALLS Status: Acute Priority: High Current Visit: No Annotation/Comment:: Note recurrent hospitalizations and recurrent falls. Care coordination consultation ordered with consideration of possible swing bed versus long-term care placement depending on progress of his PT and OT (14) Hypoalbuminemia SNOMED Code(s): 319928313 Code(s): E88.09 - OT DISORDERS OF PLASMA-PROTEIN METABOLISM, NEC Status: Chronic Priority: Medium Current Visit: Yes Annotation/Comment:: Reinitiate high-protein Glucerna supplements twice a day as snacks. (15) Renal insufficiency SNOMED Code(s): 611159814, 719807690 Code(s): N28.9 - DISORDER OF KIDNEY AND URETER, UNSPECIFIED Status: Acute Priority: Medium Current Visit: Yes Onset Date: 08/03/18 Annotation/ Comment:: Note history of renal insufficiency. Continue to observe closely especially in light of IV Lasix therapy. (16) Hyponatremia SNOMED Code(s): 20002282 Code(s): E87.1 - HYPO-OSMOLALITY AND HYPONATREMIA Status: Chronic Priority: Medium Current Visit: Yes Annotation/Comment:: Likely secondary to CHF - Problem List Review Problem List Initiated/Reviewed/Updated: Yes - My Orders Last 24 Hours: My Active Orders 08/11/18 16:47 Cardiac Monitoring [RC] . DIRECTED EKG Documentation Completion [RC] ASDIRECTED Oxygen Therapy, ED [RC] PRN Peripheral IV Care [RC] . DIRECTED Pulse Oximetry [RC] CONTINUOUS Up With Assistance [RC] PFP Vital Signs [RC] PFP Chest 1V Frontal [CR] Stat Sodium Chloride 0.9% [Saline Flush] 10 ml FLUSH ASDIRECTED PRN Obtain Past Medical Record [OM.PC] Urgent Peripheral IV Insertion Adult [OM.PC] Stat Resuscitation Status Stat EKG 12 Lead [EK] Stat 08/11/18 Breakfast Nothing per Oral Now Diet [DIET] - Assessment/Plan Admission H&P: Please use this note as an admission H&P Last 24 Hours: My Active Orders 08/11/18 16:47 Cardiac Monitoring [RC] . DIRECTED EKG Documentation Completion [RC] ASDIRECTED Oxygen Therapy, ED [RC] PRN Peripheral IV Care [RC] . DIRECTED Pulse Oximetry [RC] CONTINUOUS Up With Assistance [RC] PFP Vital Signs [RC] PFP Chest 1V Frontal [CR] Stat Sodium Chloride 0.9% [Saline Flush] 10 ml FLUSH ASDIRECTED PRN Obtain Past Medical Record [OM.PC] Urgent Peripheral IV Insertion Adult [OM.PC] Stat Resuscitation Status Stat EKG 12 Lead [EK] Stat 08/11/18 Breakfast Nothing per Oral Now Diet [DIET] Assessment:: As above Plan: As above. Extensive precautions were given to the patient, who is in agreement with the treatment plan. Cliff Sage M.D. at the [facility] assumes care in the a.m.. The patient will require about 3-4 days of inpatient/ acute care secondary to multiple health problems as above.
[2018-08-11 18:04] LABS: CHLORIDE,CL 101 mmol/L (98-107); SODIUM,NA 135 mmol/L (136-145)
[2018-08-11] MEDS ORDERED: Phytonadione 5 MG in Sodium Chloride 0.9% 50 ML IV ONE (18:09)
[2018-08-11] MEDS ORDERED: Furosemide 40 MG/4 ML VIAL IVPUSH ONE (18:22)
[2018-08-11] MEDS ORDERED: Albuterol 0.083% 2.5 MG/3 ML Neb Soln NEB PRN (20:32)
[2018-08-11] MEDS ORDERED: Temazepam 15 MG Cap PO PRN (20:32)
[2018-08-11] MEDS ORDERED: Acetaminophen 325 MG Tab PO PRN (20:32)
[2018-08-11] MEDS ORDERED: Albuterol/Ipratropium 3.0-0.5 MG/3 ML Neb Soln NEB PRN (20:32)
[2018-08-11] MEDS ORDERED: Famotidine 20 MG/2 ML SDV IVPUSH SCH (20:45)
[2018-08-11] MEDS ORDERED: Vancomycin 2 GM in Sodium Chloride 0.9% 500 ML IV ONE (21:00)
[2018-08-11] MEDS: Pantoprazole 40 MG Vial IVPUSH SCH (22:23)
[2018-08-11] MEDS: Potassium Chloride 20 MEQ Tab.ER PO SCH (22:23)
[2018-08-11] MEDS: Sodium Chloride 0.9% 10 ML Syringe FLUSH SCH (22:24)
[2018-08-11] MEDS: Metoprolol Succinate 50 MG Tab.ER PO SCH (22:26)
[2018-08-12] MEDS: Albuterol/Ipratropium 3.0-0.5 MG/3 ML Neb Soln NEB SCH ×4 (07:45→20:44)
[2018-08-12] MEDS: Furosemide 40 MG/4 ML VIAL IVPUSH SCH ×3 (07:49→17:40)
[2018-08-12] MEDS ORDERED: Dextromethorphan/guaiFENesin 600-30 MG Tab.ER PO SCH (08:00)
[2018-08-12] MEDS ORDERED: Docusate Sodium Liquid 100 MG/10 ML UD Cup PO SCH (08:00)
[2018-08-12 08:24] LABS: CHLORIDE,CL 105 mmol/L (98-107); SODIUM,NA 140 mmol/L (136-145)
[2018-08-12] MEDS: Metoprolol Succinate 50 MG Tab.ER PO SCH ×2 (08:57→20:44)
[2018-08-12] MEDS: Pantoprazole 40 MG Vial IVPUSH SCH ×2 (08:57→20:44)
[2018-08-12] MEDS: Budesonide 0.5 MG/2 ML Neb Susp NEB SCH ×2 (08:57→20:44)
[2018-08-12] MEDS: Sodium Chloride 0.9% 10 ML Syringe FLUSH SCH ×2 (09:01→20:46)
[2018-08-12] MEDS: buPROPion 150 MG Tab.SR PO SCH ×2 (09:01→11:48)
[2018-08-12] MEDS: Potassium Chloride 20 MEQ Tab.ER PO SCH ×3 (09:01→17:40)
[2018-08-12] MEDS: Amiodarone 200 MG Tab PO SCH (09:01)
[2018-08-12] MEDS: Docusate Sodium 100 MG Cap PO SCH (09:11)
--- NOTE | 2018-08-12 17:12 | PCM.PN ---
- General Info Date of Service: 08/12/18 - Review of Systems General: Reports: Weakness HEENT: Reports: No Symptoms Pulmonary: Reports: Shortness of Breath Cardiovascular: Reports: No Symptoms Gastrointestinal: Reports: No Symptoms Genitourinary: Reports: No Symptoms Musculoskeletal: Reports: No Symptoms Skin: Reports: No Symptoms Neurological: Reports: No Symptoms Psychiatric: Reports: No Symptoms - Patient Data Vitals - Most Recent: Last Vital Signs Temp 97.8 F 08/12/18 12:00 Pulse 89 08/12/18 16:00 Resp 20 08/12/18 16:00 BP 143/86 H 08/12/18 16:00 Pulse Ox 2 L 08/12/18 16:00 Weight - Most Recent: 226 lb I&O - Last 24 Hours: Intake & Output 08/12/18 08/12/18 08/12/18 06:59 14:59 22:59 Intake Total 1040 Output Total 1650 1050 Balance -1650 -10 Lab Results Last 24 Hours: Laboratory Results - last 24 hr 08/11/18 08/11/18 08/11/18 Range/Units 17:00 17:00 17:00 WBC 11.2 H (4.0-10.2) K/uL RBC 5.63 H (4.33-5.41) M/uL Hgb 16.9 H (13.1-16.8) g/dL Hct 48.2 (39.0-49.0) % MCV 85.6 (84.0-98.0) fL MCH 30.0 (28.2-33.3) pg MCHC 35.1 (31.7-36.0) g/dL RDW 15.6 H (11.2-14.1) % Plt Count 243 D (150-350) K/uL Neut % (Auto) 69.4 (45.0-80.0) % Lymph % (Auto) 18.1 (10.0-50.0) % [place] % (Auto) 10.8 (2.0-14.0) % Eos % (Auto) 1.5 (0.0-5.0) % Baso % (Auto) 0.2 (0.0-2.0) % Neut # (Auto) 7.79 H (1.40-7.00) K/uL Lymph # (Auto) 2.03 (0.50-3.50) K/uL [place] # (Auto) 1.21 H (0.00-1.00) K/uL Eos # (Auto) 0.17 (0.00-0.50) K/uL Baso # (Auto) 0.02 (0.00-0.20) K/uL PT 101.5 H D (9.5-12.0) SEC INR 9.4 H* APTT 50.6 H (21.0-31.3) SEC Sodium 135 L (136-145) mmol/L Potassium 4.0 (3.5-5.1) mmol/L Chloride 101 (98-107) mmol/L Carbon Dioxide 24.4 (21.0-32.0) mmol/L BUN 14 (7-18) mg/dL Creatinine 0.78 (0.51-1.17) mg/dL Est Cr Clr Drug Dosing 89.81 mL/min Estimated GFR (MDRD) > 60 mL/min Glucose 97 (74-106) mg/dL Lactic Acid (0.4-2.0) mmol/L Uric Acid 3.0 (2.6-7.2) mg/dL Calcium 9.0 (8.5-10.1) mg/dL Magnesium 2.0 (1.8-2.4) mg/dL Total Bilirubin 0.8 (0.2-1.0) mg/dL AST 77 H (15-37) U/L ALT 108 H (12-78) U/L Alkaline Phosphatase 108 (46-116) IU/L Creatine Kinase 150 (26-308) U/L Creatine Kinase Index 2.8 H (0.0-2.5) % CK-MB (CK-2) 4.20 H (0.00-3.60) ng/mL Troponin I 0.025 (0.000-0.056) ng/mL NT-Pro-B Natriuret Pep 1207 H (0-125) pg/mL Total Protein 7.6 (6.4-8.2) g/dL Albumin 2.8 L (3.4-5.0) g/dL TSH, Ultra Sensitive 0.645 (0.358-3.740) mIU/mL 08/11/18 08/11/18 08/11/18 Range/Units 17:00 21:08 21:08 WBC (4.0-10.2) K/uL RBC (4.33-5.41) M/uL Hgb (13.1-16.8) g/dL Hct (39.0-49.0) % MCV (84.0-98.0) fL MCH (28.2-33.3) pg MCHC (31.7-36.0) g/dL RDW (11.2-14.1) % Plt Count (150-350) K/uL Neut % (Auto) (45.0-80.0) % Lymph % (Auto) (10.0-50.0) % [place] % (Auto) (2.0-14.0) % Eos % (Auto) (0.0-5.0) % Baso % (Auto) (0.0-2.0) % Neut # (Auto) (1.40-7.00) K/uL Lymph # (Auto) (0.50-3.50) K/uL [place] # (Auto) (0.00-1.00) K/uL Eos # (Auto) (0.00-0.50) K/uL Baso # (Auto) (0.00-0.20) K/uL PT 41.5 H D (9.5-12.0) SEC INR 3.8 APTT (21.0-31.3) SEC Sodium (136-145) mmol/L Potassium (3.5-5.1) mmol/L Chloride (98-107) mmol/L Carbon Dioxide (21.0-32.0) mmol/L BUN (7-18) mg/dL Creatinine (0.51-1.17) mg/dL Est Cr Clr Drug Dosing mL/min Estimated GFR (MDRD) mL/min Glucose (74-106) mg/dL Lactic Acid 2.4 H 2.0 (0.4-2.0) mmol/L Uric Acid (2.6-7.2) mg/dL Calcium (8.5-10.1) mg/dL Magnesium (1.8-2.4) mg/dL Total Bilirubin (0.2-1.0) mg/dL AST (15-37) U/L ALT (12-78) U/L Alkaline Phosphatase (46-116) IU/L Creatine Kinase (26-308) U/L Creatine Kinase Index (0.0-2.5) % CK-MB (CK-2) (0.00-3.60) ng/mL Troponin I (0.000-0.056) ng/mL NT-Pro-B Natriuret Pep (0-125) pg/mL Total Protein (6.4-8.2) g/dL Albumin (3.4-5.0) g/dL TSH, Ultra Sensitive (0.358-3.740) mIU/mL 08/12/18 08/12/18 08/12/18 Range/Units 07:52 07:52 07:52 WBC 9.2 (4.0-10.2) K/uL RBC 5.24 (4.33-5.41) M/uL Hgb 15.8 (13.1-16.8) g/dL Hct 45.4 (39.0-49.0) % MCV 86.6 (84.0-98.0) fL MCH 30.2 (28.2-33.3) pg MCHC 34.8 (31.7-36.0) g/dL RDW 15.2 H (11.2-14.1) % Plt Count 226 (150-350) K/uL Neut % (Auto) 64.8 (45.0-80.0) % Lymph % (Auto) 20.5 (10.0-50.0) % [place] % (Auto) 12.1 (2.0-14.0) % Eos % (Auto) 2.2 (0.0-5.0) % Baso % (Auto) 0.4 (0.0-2.0) % Neut # (Auto) 5.94 (1.40-7.00) K/uL Lymph # (Auto) 1.88 (0.50-3.50) K/uL [place] # (Auto) 1.11 H (0.00-1.00) K/uL Eos # (Auto) 0.20 (0.00-0.50) K/uL Baso # (Auto) 0.04 (0.00-0.20) K/uL PT 16.8 H D (9.5-12.0) SEC INR 1.6 APTT (21.0-31.3) SEC Sodium 140 (136-145) mmol/L Potassium 4.2 (3.5-5.1) mmol/L Chloride 105 (98-107) mmol/L Carbon Dioxide 25.9 (21.0-32.0) mmol/L BUN 13 (7-18) mg/dL Creatinine 0.79 (0.51-1.17) mg/dL Est Cr Clr Drug Dosing TNP mL/min Estimated GFR (MDRD) > 60 mL/min Glucose 92 (74-106) mg/dL Lactic Acid (0.4-2.0) mmol/L Uric Acid (2.6-7.2) mg/dL Calcium 8.7 (8.5-10.1) mg/dL Magnesium (1.8-2.4) mg/dL Total Bilirubin 1.3 H (0.2-1.0) mg/dL AST 52 H (15-37) U/L ALT 80 H (12-78) U/L Alkaline Phosphatase 97 (46-116) IU/L Creatine Kinase 97 (26-308) U/L Creatine Kinase Index 2.7 H (0.0-2.5) % CK-MB (CK-2) 2.60 (0.00-3.60) ng/mL Troponin I 0.027 (0.000-0.056) ng/mL NT-Pro-B Natriuret Pep 1772 H (0-125) pg/mL Total Protein 6.8 (6.4-8.2) g/dL Albumin 2.4 L (3.4-5.0) g/dL TSH, Ultra Sensitive (0.358-3.740) mIU/mL 08/12/18 Range/Units 07:52 WBC (4.0-10.2) K/uL RBC (4.33-5.41) M/uL Hgb (13.1-16.8) g/dL Hct (39.0-49.0) % MCV (84.0-98.0) fL MCH (28.2-33.3) pg MCHC (31.7-36.0) g/dL RDW (11.2-14.1) % Plt Count (150-350) K/uL Neut % (Auto) (45.0-80.0) % Lymph % (Auto) (10.0-50.0) % [place] % (Auto) (2.0-14.0) % Eos % (Auto) (0.0-5.0) % Baso % (Auto) (0.0-2.0) % Neut # (Auto) (1.40-7.00) K/uL Lymph # (Auto) (0.50-3.50) K/uL [place] # (Auto) (0.00-1.00) K/uL Eos # (Auto) (0.00-0.50) K/uL Baso # (Auto) (0.00-0.20) K/uL PT (9.5-12.0) SEC INR APTT (21.0-31.3) SEC Sodium (136-145) mmol/L Potassium (3.5-5.1) mmol/L Chloride (98-107) mmol/L Carbon Dioxide (21.0-32.0) mmol/L BUN (7-18) mg/dL Creatinine (0.51-1.17) mg/dL Est Cr Clr Drug Dosing mL/min Estimated GFR (MDRD) mL/min Glucose (74-106) mg/dL Lactic Acid 1.4 (0.4-2.0) mmol/L Uric Acid (2.6-7.2) mg/dL Calcium (8.5-10.1) mg/dL Magnesium (1.8-2.4) mg/dL Total Bilirubin (0.2-1.0) mg/dL AST (15-37) U/L ALT (12-78) U/L Alkaline Phosphatase (46-116) IU/L Creatine Kinase (26-308) U/L Creatine Kinase Index (0.0-2.5) % CK-MB (CK-2) (0.00-3.60) ng/mL Troponin I (0.000-0.056) ng/mL NT-Pro-B Natriuret Pep (0-125) pg/mL Total Protein (6.4-8.2) g/dL Albumin (3.4-5.0) g/dL TSH, Ultra Sensitive (0.358-3.740) mIU/mL Med Orders - Current: Current Medications Acetaminophen (Tylenol) 650 mg PO Q4H PRN PRN Reason: Pain/Fever Albuterol (Proventil Neb Soln) 2.5 mg NEB Q2H PRN PRN Reason: Dyspnea Albuterol/Ipratropium (Duoneb 3.0-0.5 Mg/3 Ml) 3 ml NEB Q4HRRT PRN PRN Reason: Dyspnea Albuterol/Ipratropium (Duoneb 3.0-0.5 Mg/3 Ml) 3 ml NEB Q6HRRT [facility] Last Admin: 08/12/18 14:34 Dose: 3 ml Amiodarone HCl (Cordarone) 200 mg PO DAILY [facility] Last Admin: 08/12/18 09:01 Dose: 200 mg Budesonide (Pulmicort) 0.5 mg NEB BIDRT [facility] Last Admin: 08/12/18 08:57 Dose: 0.5 mg Bupropion HCl (Wellbutrin Sr) 150 mg PO BID@08,12 [facility] Last Admin: 08/12/18 11:48 Dose: 150 mg Docusate Sodium (Colace) 200 mg PO DAILY [facility] Last Admin: 08/12/18 09:11 Dose: 100 mg Famotidine (Pepcid) 20 mg IVPUSH QPM [facility] Furosemide (Lasix) 40 mg IVPUSH Q8H [facility] Last Admin: 08/12/18 09:01 Dose: 40 mg Vancomycin HCl 1.25 gm/ Sodium (Chloride) 250 mls @ 135 mls/hr IV Q12H [facility] Last Admin: 08/12/18 08:57 Dose: 135 mls/hr Metoprolol Succinate (Toprol Xl) 50 mg PO BEDTIME [facility] Last Admin: 08/11/18 22:26 Dose: 50 mg Metoprolol Succinate (Toprol Xl) 100 mg PO QAM [facility] Last Admin: 08/12/18 08:57 Dose: 100 mg Pantoprazole Sodium (Protonix Iv) 40 mg IVPUSH Q12H [facility] Last Admin: 08/12/18 08:57 Dose: 40 mg Potassium Chloride (Klor-Con M20) 20 meq PO TID [facility] Last Admin: 08/12/18 11:48 Dose: 20 meq Sodium Chloride (Saline Flush) 10 ml FLUSH ASDIRECTED PRN PRN Reason: Keep Vein Open Sodium Chloride (Saline Flush) 10 ml FLUSH Q12H [facility] Last Admin: 08/12/18 09:01 Dose: 10 ml Temazepam (Restoril) 15 mg PO BEDTIME PRN PRN Reason: Insomnia Vancomycin HCl (Pharmacy To Dose - Vancomycin) 1 dose .XX ASDIRECTED [facility] Discontinued Medications Docusate Sodium (Colace 50 Mg/5 Ml Liquid) 250 mg PO DAILY [facility] Last Admin: 08/12/18 08:54 Dose: Not Given Famotidine (Pepcid) 40 mg IVPUSH ONETIME ONE Stop: 08/11/18 16:48 Last Admin: 08/11/18 17:48 Dose: 40 mg Famotidine (Pepcid) 20 mg IVPUSH BID [facility] Furosemide (Lasix) 60 mg IVPUSH NOW ONE Stop: 08/11/18 18:23 Last Admin: 08/11/18 22:24 Dose: 60 mg Guaifenesin/Dextromethorphan (Mucinex Dm Er 600-30 Mg) 1 tab PO BID [facility] Phytonadione 5 mg/ Sodium (Chloride) 50.5 mls @ 100 mls/hr IV NOW ONE Stop: 08/11/18 18:39 Last Admin: 08/11/18 18:18 Dose: 100 mls/hr Vancomycin HCl 2 gm/ Sodium (Chloride) 500 mls @ 165 mls/hr IV ONETIME ONE Stop: 08/12/18 00:01 Last Admin: 08/11/18 22:23 Dose: 165 mls/hr Phytonadione (Aquamephyton) Confirm Administered Dose 10 mg .ROUTE .STK-MED ONE Stop: 08/11/18 18:21 Last Admin: 08/11/18 19:24 Dose: Not Given - Exam General: Alert, Oriented HEENT: Pupils Equal, Pupils Reactive, EOMI, Mucous Membr. Moist/[place] Neck: Supple Lungs: Decreased Breath Sounds, Rales Cardiovascular: Regular Rate, Regular Rhythm GI/Abdominal Exam: Normal Bowel Sounds, Soft, Non-Tender, No Organomegaly, No Distention, No Abnormal Bruit, No Mass, Pelvis Stable (Male) Exam: No Hernia, Normal Inspection, Normal Prostate, Circumcised Back Exam: Normal Inspection, Full Range of Motion Extremities: Pedal Edema Skin: Warm, Dry, Intact Neurological: No New Focal Deficit Psy/Mental Status: Alert, Normal Affect, Normal Mood - Problem List & Annotations (1) CHF (congestive heart failure) SNOMED Code(s): 32693812 Code(s): I50.9 - HEART FAILURE, UNSPECIFIED Status: Acute Priority: High Current Visit: Yes Onset Date: ~08/02/18 Qualifiers: Heart failure type: combined systolic and diastolic Heart failure chronicity: acute on chronic Qualified Code(s): I50.43 - Acute on chronic combined systolic (congestive) and diastolic (congestive) heart failure Annotation/Comment:: PT seen today improving will continue with current management (2) Elevated INR SNOMED Code(s): 247773626 Code(s): R79.1 - ABNORMAL COAGULATION PROFILE Status: Acute Priority: High Current Visit: Yes Onset Date: 08/11/18 Annotation/Comment:: Repeated INR 1.6 we'll repeat in the morning - Problem List Review Problem List Initiated/Reviewed/Updated: Yes - My Orders Last 24 Hours: My Active Orders 08/13/18 08:30 VANCOMYCIN TROUGH [CHEM] Timed
[2018-08-12] MEDS: Sodium Chloride 0.9% 10 ML Syringe FLUSH PRN ×2 (17:40→20:46)
[2018-08-12] MEDS: Famotidine 20 MG/2 ML SDV IVPUSH SCH (17:40)
[2018-08-13] MEDS: Albuterol/Ipratropium 3.0-0.5 MG/3 ML Neb Soln NEB SCH ×4 (03:56→20:27)
[2018-08-13] MEDS: Furosemide 40 MG/4 ML VIAL IVPUSH SCH ×3 (03:56→17:19)
[2018-08-13] MEDS: Amiodarone 200 MG Tab PO SCH (07:34)
[2018-08-13] MEDS: Docusate Sodium 100 MG Cap PO SCH (07:34)
[2018-08-13] MEDS: buPROPion 150 MG Tab.SR PO SCH ×2 (07:34→12:20)
[2018-08-13] MEDS: Budesonide 0.5 MG/2 ML Neb Susp NEB SCH ×2 (07:34→20:27)
[2018-08-13] MEDS: Potassium Chloride 20 MEQ Tab.ER PO SCH ×3 (07:34→17:19)
[2018-08-13] MEDS: Sodium Chloride 0.9% 10 ML Syringe FLUSH SCH ×3 (07:35→20:28)
[2018-08-13] MEDS: Metoprolol Succinate 50 MG Tab.ER PO SCH ×2 (07:35→20:27)
[2018-08-13] MEDS: Pantoprazole 40 MG Vial IVPUSH SCH ×3 (07:38→20:28)
[2018-08-13 08:56] LABS: CHLORIDE,CL 102 mmol/L (98-107); SODIUM,NA 139 mmol/L (136-145)
[2018-08-13] MEDS: Sodium Chloride 0.9% 10 ML Syringe FLUSH PRN ×5 (09:33→20:30)
--- NOTE | 2018-08-13 13:07 | PCM.PN ---
- General Info Date of Service: 08/13/18 Functional Status: Reports: Ambulating - Review of Systems General: Reports: Weakness HEENT: Reports: No Symptoms Pulmonary: Reports: Shortness of Breath Cardiovascular: Reports: No Symptoms Gastrointestinal: Reports: No Symptoms Genitourinary: Reports: No Symptoms Musculoskeletal: Reports: No Symptoms Skin: Reports: No Symptoms Neurological: Reports: No Symptoms - Patient Data Vitals - Most Recent: Last Vital Signs Temp 98.3 F 08/13/18 08:00 Pulse 81 08/13/18 08:00 Resp 20 08/13/18 08:00 BP 102/66 08/13/18 08:00 Pulse Ox 94 L 08/13/18 08:00 Weight - Most Recent: 235 lb 12.8 oz I&O - Last 24 Hours: Intake & Output 08/12/18 08/13/18 08/13/18 22:59 06:59 14:59 Intake Total 540 120 840 Output Total 700 150 Balance 540 -580 690 Lab Results Last 24 Hours: Laboratory Results - last 24 hr 08/13/18 08/13/18 08/13/18 Range/Units 08:29 08:29 08:29 PT 13.4 H (9.5-12.0) SEC INR 1.2 Sodium 139 (136-145) mmol/L Potassium 4.2 (3.5-5.1) mmol/L Chloride 102 (98-107) mmol/L Carbon Dioxide 27.2 (21.0-32.0) mmol/L BUN 17 (7-18) mg/dL Creatinine 0.93 (0.51-1.17) mg/dL Est Cr Clr Drug Dosing 75.33 mL/min Estimated GFR (MDRD) > 60 mL/min Glucose 125 H (74-106) mg/dL Calcium 9.4 (8.5-10.1) mg/dL Vancomycin Trough 18.2 (10-20) ug/mL Med Orders - Current: Current Medications Acetaminophen (Tylenol) 650 mg PO Q4H PRN PRN Reason: Pain/Fever Albuterol (Proventil Neb Soln) 2.5 mg NEB Q2H PRN PRN Reason: Dyspnea Albuterol/Ipratropium (Duoneb 3.0-0.5 Mg/3 Ml) 3 ml NEB Q4HRRT PRN PRN Reason: Dyspnea Albuterol/Ipratropium (Duoneb 3.0-0.5 Mg/3 Ml) 3 ml NEB Q6HRRT [facility] Last Admin: 08/13/18 07:34 Dose: 3 ml Amiodarone HCl (Cordarone) 200 mg PO DAILY [facility] Last Admin: 08/13/18 07:34 Dose: 200 mg Budesonide (Pulmicort) 0.5 mg NEB BIDRT [facility] Last Admin: 08/13/18 07:34 Dose: 0.5 mg Bupropion HCl (Wellbutrin Sr) 150 mg PO BID@08,12 [facility] Last Admin: 08/13/18 12:20 Dose: 150 mg Docusate Sodium (Colace) 200 mg PO DAILY [facility] Last Admin: 08/13/18 07:34 Dose: 200 mg Famotidine (Pepcid) 20 mg IVPUSH QPM [facility] Last Admin: 08/12/18 17:40 Dose: 20 mg Furosemide (Lasix) 40 mg IVPUSH BID [facility] Vancomycin HCl 1.25 gm/ Sodium (Chloride) 250 mls @ 135 mls/hr IV Q12H [facility] Last Admin: 08/13/18 09:33 Dose: 135 mls/hr Metoprolol Succinate (Toprol Xl) 50 mg PO BEDTIME [facility] Last Admin: 08/12/18 20:44 Dose: 50 mg Metoprolol Succinate (Toprol Xl) 100 mg PO QAM [facility] Last Admin: 08/13/18 07:35 Dose: 100 mg Pantoprazole Sodium (Protonix Iv) 40 mg IVPUSH Q12H [facility] Last Admin: 08/13/18 09:16 Dose: Not Given Potassium Chloride (Klor-Con M20) 20 meq PO TID [facility] Last Admin: 08/13/18 12:20 Dose: 20 meq Sodium Chloride (Saline Flush) 10 ml FLUSH ASDIRECTED PRN PRN Reason: Keep Vein Open Last Admin: 08/13/18 12:13 Dose: 10 ml Sodium Chloride (Saline Flush) 10 ml FLUSH Q12H [facility] Last Admin: 08/13/18 09:17 Dose: Not Given Temazepam (Restoril) 15 mg PO BEDTIME PRN PRN Reason: Insomnia Vancomycin HCl (Pharmacy To Dose - Vancomycin) 1 dose .XX ASDIRECTED [facility] Warfarin Sodium (Coumadin) 2.5 mg PO DAILY@1800 [facility] Discontinued Medications Docusate Sodium (Colace 50 Mg/5 Ml Liquid) 250 mg PO DAILY [facility] Last Admin: 08/12/18 08:54 Dose: Not Given Famotidine (Pepcid) 40 mg IVPUSH ONETIME ONE Stop: 08/11/18 16:48 Last Admin: 08/11/18 17:48 Dose: 40 mg Famotidine (Pepcid) 20 mg IVPUSH BID [facility] Furosemide (Lasix) 60 mg IVPUSH NOW ONE Stop: 08/11/18 18:23 Last Admin: 08/11/18 22:24 Dose: 60 mg Furosemide (Lasix) 40 mg IVPUSH Q8H [facility] Last Admin: 08/13/18 12:12 Dose: 40 mg Guaifenesin/Dextromethorphan (Mucinex Dm Er 600-30 Mg) 1 tab PO BID [facility] Phytonadione 5 mg/ Sodium (Chloride) 50.5 mls @ 100 mls/hr IV NOW ONE Stop: 08/11/18 18:39 Last Admin: 08/11/18 18:18 Dose: 100 mls/hr Vancomycin HCl 2 gm/ Sodium (Chloride) 500 mls @ 165 mls/hr IV ONETIME ONE Stop: 08/12/18 00:01 Last Admin: 08/11/18 22:23 Dose: 165 mls/hr Phytonadione (Aquamephyton) Confirm Administered Dose 10 mg .ROUTE .STK-MED ONE Stop: 08/11/18 18:21 Last Admin: 08/11/18 19:24 Dose: Not Given - Exam General: Alert, Oriented HEENT: Pupils Equal, Pupils Reactive, EOMI, Mucous Membr. Moist/[place] Neck: Supple Lungs: Decreased Breath Sounds Cardiovascular: Regular Rate, Regular Rhythm GI/Abdominal Exam: Normal Bowel Sounds, Soft, Non-Tender, No Organomegaly, No Distention, No Abnormal Bruit, No Mass, Pelvis Stable (Male) Exam: No Hernia, Normal Inspection, Normal Prostate, Circumcised Back Exam: Normal Inspection, Full Range of Motion Skin: Warm, Dry, Intact Neurological: No New Focal Deficit Psy/Mental Status: Alert, Normal Affect, Normal Mood - Problem List & Annotations (1) CHF (congestive heart failure) SNOMED Code(s): 16584162 Code(s): I50.9 - HEART FAILURE, UNSPECIFIED Status: Acute Priority: High Current Visit: Yes Onset Date: ~08/02/18 Qualifiers: Heart failure type: combined systolic and diastolic Heart failure chronicity: acute on chronic Qualified Code(s): I50.43 - Acute on chronic combined systolic (congestive) and diastolic (congestive) heart failure Annotation/Comment:: decreas lASIX TO BID (2) Elevated INR SNOMED Code(s): 585476766 Code(s): R79.1 - ABNORMAL COAGULATION PROFILE Status: Acute Priority: High Current Visit: Yes Onset Date: 08/11/18 Annotation/Comment:: repeat INR rest coumadin - Problem List Review Problem List Initiated/Reviewed/Updated: Yes - My Orders Last 24 Hours: My Active Orders 08/13/18 13:00 CBC WITH AUTO DIFF [HEME] AM 08/13/18 18:00 Furosemide [Lasix] 40 mg IVPUSH BID Warfarin [Coumadin] 2.5 mg PO DAILY@1800 08/14/18 05:11 Chest 2V [CR] Stat CMP [COMPREHENSIVE METABOLIC PN,CMP] [CHEM] Routine INR,PT,PROTHROMBIN TIME [COAG] Stat
[2018-08-13] MEDS: Warfarin 2.5 MG Tab PO SCH (17:19)
[2018-08-13] MEDS: Famotidine 20 MG/2 ML SDV IVPUSH SCH (17:20)
[2018-08-14] MEDS: Albuterol/Ipratropium 3.0-0.5 MG/3 ML Neb Soln NEB SCH ×4 (01:54→20:07)
[2018-08-14 07:24] LABS: CHLORIDE,CL 103 mmol/L (98-107); SODIUM,NA 138 mmol/L (136-145)
[2018-08-14] MEDS: Pantoprazole 40 MG Vial IVPUSH SCH ×2 (08:53→20:07)
[2018-08-14] MEDS: Docusate Sodium 100 MG Cap PO SCH (08:53)
[2018-08-14] MEDS: Furosemide 40 MG/4 ML VIAL IVPUSH SCH ×2 (08:53→18:21)
[2018-08-14] MEDS: Potassium Chloride 20 MEQ Tab.ER PO SCH ×3 (08:54→18:22)
[2018-08-14] MEDS: Metoprolol Succinate 50 MG Tab.ER PO SCH ×2 (08:54→20:07)
[2018-08-14] MEDS: Budesonide 0.5 MG/2 ML Neb Susp NEB SCH ×2 (08:55→20:07)
[2018-08-14] MEDS: Amiodarone 200 MG Tab PO SCH (08:55)
[2018-08-14] MEDS: buPROPion 150 MG Tab.SR PO SCH ×2 (08:55→11:58)
--- NOTE | 2018-08-14 10:57 | PCM.PN ---
- General Info Date of Service: 08/14/18 Functional Status: Reports: Incentive Spirometry (patient reports using this 10 times an hour while awake) - Review of Systems General: Reports: Weakness, Fatigue HEENT: Reports: No Symptoms Pulmonary: Reports: Shortness of Breath, Cough, Wheezing Cardiovascular: Denies: Chest Pain Gastrointestinal: Reports: No Symptoms Genitourinary: Reports: No Symptoms Musculoskeletal: Reports: No Symptoms Skin: Reports: No Symptoms Neurological: Reports: No Symptoms Psychiatric: Reports: No Symptoms Systems Review Comment:: Please note the nurses are concerned about patient retaining education about medication and diagnoses. Will order mini mental exam and will also ask nursing to continue to reiterate med education and diagnosis education. - Patient Data Vitals - Most Recent: Last Vital Signs Temp 98.9 F 08/13/18 19:59 Pulse 95 08/14/18 08:54 Resp 20 08/13/18 19:59 BP 125/76 08/14/18 08:54 Pulse Ox 93 L 08/13/18 19:59 Weight - Most Recent: 235 lb 12.797 oz I&O - Last 24 Hours: Intake & Output 08/13/18 08/14/18 08/14/18 22:59 06:59 14:59 Intake Total 300 Output Total 350 Balance -50 Lab Results Last 24 Hours: Laboratory Results - last 24 hr 08/14/18 08/14/18 08/14/18 Range/Units 06:48 06:48 06:48 WBC 12.2 H (4.0-10.2) K/uL RBC 5.49 H (4.33-5.41) M/uL Hgb 16.6 (13.1-16.8) g/dL Hct 47.3 (39.0-49.0) % MCV 86.2 (84.0-98.0) fL MCH 30.2 (28.2-33.3) pg MCHC 35.1 (31.7-36.0) g/dL RDW 15.3 H (11.2-14.1) % Plt Count 244 (150-350) K/uL Neut % (Auto) 66.9 (45.0-80.0) % Lymph % (Auto) 19.5 (10.0-50.0) % [place] % (Auto) 11.8 (2.0-14.0) % Eos % (Auto) 1.5 (0.0-5.0) % Baso % (Auto) 0.3 (0.0-2.0) % Neut # (Auto) 8.13 H (1.40-7.00) K/uL Lymph # (Auto) 2.37 (0.50-3.50) K/uL [place] # (Auto) 1.43 H (0.00-1.00) K/uL Eos # (Auto) 0.18 (0.00-0.50) K/uL Baso # (Auto) 0.04 (0.00-0.20) K/uL PT 14.7 H (9.5-12.0) SEC INR 1.4 Sodium 138 (136-145) mmol/L Potassium 4.1 (3.5-5.1) mmol/L Chloride 103 (98-107) mmol/L Carbon Dioxide 24.7 (21.0-32.0) mmol/L BUN 17 (7-18) mg/dL Creatinine 0.85 (0.51-1.17) mg/dL Est Cr Clr Drug Dosing 82.42 mL/min Estimated GFR (MDRD) > 60 mL/min Glucose 100 (74-106) mg/dL Calcium 8.9 (8.5-10.1) mg/dL Total Bilirubin 1.1 H (0.2-1.0) mg/dL AST 67 H (15-37) U/L ALT 88 H (12-78) U/L Alkaline Phosphatase 100 (46-116) IU/L NT-Pro-B Natriuret Pep 1158 H (0-125) pg/mL Total Protein 7.2 (6.4-8.2) g/dL Albumin 2.5 L (3.4-5.0) g/dL Random Vancomycin ug/mL 08/14/18 Range/Units 06:48 WBC (4.0-10.2) K/uL RBC (4.33-5.41) M/uL Hgb (13.1-16.8) g/dL Hct (39.0-49.0) % MCV (84.0-98.0) fL MCH (28.2-33.3) pg MCHC (31.7-36.0) g/dL RDW (11.2-14.1) % Plt Count (150-350) K/uL Neut % (Auto) (45.0-80.0) % Lymph % (Auto) (10.0-50.0) % [place] % (Auto) (2.0-14.0) % Eos % (Auto) (0.0-5.0) % Baso % (Auto) (0.0-2.0) % Neut # (Auto) (1.40-7.00) K/uL Lymph # (Auto) (0.50-3.50) K/uL [place] # (Auto) (0.00-1.00) K/uL Eos # (Auto) (0.00-0.50) K/uL Baso # (Auto) (0.00-0.20) K/uL PT (9.5-12.0) SEC INR Sodium (136-145) mmol/L Potassium (3.5-5.1) mmol/L Chloride (98-107) mmol/L Carbon Dioxide (21.0-32.0) mmol/L BUN (7-18) mg/dL Creatinine (0.51-1.17) mg/dL Est Cr Clr Drug Dosing mL/min Estimated GFR (MDRD) mL/min Glucose (74-106) mg/dL Calcium (8.5-10.1) mg/dL Total Bilirubin (0.2-1.0) mg/dL AST (15-37) U/L ALT (12-78) U/L Alkaline Phosphatase (46-116) IU/L NT-Pro-B Natriuret Pep (0-125) pg/mL Total Protein (6.4-8.2) g/dL Albumin (3.4-5.0) g/dL Random Vancomycin 18.8 ug/mL Dnany Results Last 24 Hours: Microbiology 08/11/18 20:32 Stool Occult Blood (DANNY) - Final Stool / Feces NEGATIVE OCCULT BLOOD Med Orders - Current: Current Medications Acetaminophen (Tylenol) 650 mg PO Q4H PRN PRN Reason: Pain/Fever Albuterol (Proventil Neb Soln) 2.5 mg NEB Q2H PRN PRN Reason: Dyspnea Albuterol/Ipratropium (Duoneb 3.0-0.5 Mg/3 Ml) 3 ml NEB Q4HRRT PRN PRN Reason: Dyspnea Albuterol/Ipratropium (Duoneb 3.0-0.5 Mg/3 Ml) 3 ml NEB Q6HRRT [facility] Last Admin: 08/14/18 08:54 Dose: 3 ml Amiodarone HCl (Cordarone) 200 mg PO DAILY [facility] Last Admin: 08/14/18 08:55 Dose: 200 mg Budesonide (Pulmicort) 0.5 mg NEB BIDRT [facility] Last Admin: 08/14/18 08:55 Dose: 0.5 mg Bupropion HCl (Wellbutrin Sr) 150 mg PO BID@08,12 [facility] Last Admin: 08/14/18 08:55 Dose: 150 mg Docusate Sodium (Colace) 200 mg PO DAILY [facility] Last Admin: 08/14/18 08:53 Dose: Not Given Famotidine (Pepcid) 20 mg IVPUSH QPM [facility] Last Admin: 08/13/18 17:20 Dose: 20 mg Furosemide (Lasix) 40 mg IVPUSH BID [facility] Last Admin: 08/14/18 08:53 Dose: 40 mg Vancomycin HCl 1.25 gm/ Sodium (Chloride) 250 mls @ 135 mls/hr IV Q12H [facility] Last Admin: 08/13/18 20:28 Dose: 135 mls/hr Metoprolol Succinate (Toprol Xl) 50 mg PO BEDTIME [facility] Last Admin: 08/13/18 20:27 Dose: 50 mg Metoprolol Succinate (Toprol Xl) 100 mg PO QAM [facility] Last Admin: 08/14/18 08:54 Dose: 100 mg Pantoprazole Sodium (Protonix Iv) 40 mg IVPUSH Q12H [facility] Last Admin: 08/14/18 08:53 Dose: 40 mg Potassium Chloride (Klor-Con M20) 20 meq PO TID [facility] Last Admin: 08/14/18 08:54 Dose: 20 meq Sodium Chloride (Saline Flush) 10 ml FLUSH ASDIRECTED PRN PRN Reason: Keep Vein Open Last Admin: 08/13/18 20:30 Dose: 10 ml Sodium Chloride (Saline Flush) 10 ml FLUSH Q12H [facility] Last Admin: 08/13/18 20:28 Dose: 10 ml Temazepam (Restoril) 15 mg PO BEDTIME PRN PRN Reason: Insomnia Vancomycin HCl (Pharmacy To Dose - Vancomycin) 1 dose .XX ASDIRECTED [facility] Warfarin Sodium (Coumadin) 2.5 mg PO DAILY@1800 [facility] Last Admin: 08/13/18 17:19 Dose: 2.5 mg Discontinued Medications Docusate Sodium (Colace 50 Mg/5 Ml Liquid) 250 mg PO DAILY [facility] Last Admin: 08/12/18 08:54 Dose: Not Given Famotidine (Pepcid) 40 mg IVPUSH ONETIME ONE Stop: 08/11/18 16:48 Last Admin: 08/11/18 17:48 Dose: 40 mg Famotidine (Pepcid) 20 mg IVPUSH BID [facility] Furosemide (Lasix) 60 mg IVPUSH NOW ONE Stop: 08/11/18 18:23 Last Admin: 08/11/18 22:24 Dose: 60 mg Furosemide (Lasix) 40 mg IVPUSH Q8H [facility] Last Admin: 08/13/18 12:12 Dose: 40 mg Guaifenesin/Dextromethorphan (Mucinex Dm Er 600-30 Mg) 1 tab PO BID [facility] Phytonadione 5 mg/ Sodium (Chloride) 50.5 mls @ 100 mls/hr IV NOW ONE Stop: 08/11/18 18:39 Last Admin: 08/11/18 18:18 Dose: 100 mls/hr Vancomycin HCl 2 gm/ Sodium (Chloride) 500 mls @ 165 mls/hr IV ONETIME ONE Stop: 08/12/18 00:01 Last Admin: 08/11/18 22:23 Dose: 165 mls/hr Phytonadione (Aquamephyton) Confirm Administered Dose 10 mg .ROUTE .STK-MED ONE Stop: 08/11/18 18:21 Last Admin: 08/11/18 19:24 Dose: Not Given - Exam General: Alert, Oriented (no confusion noted at this time ), Cooperative, No Acute Distress HEENT: Pupils Equal, Pupils Reactive, EOMI, Mucous Membr. Moist/[place] Neck: Supple Lungs: Decreased Breath Sounds (on right side with rales), Rales (on right side) , Wheezing Cardiovascular: Regular Rate, Regular Rhythm GI/Abdominal Exam: Normal Bowel Sounds, Soft, Non-Tender, No Organomegaly, No Distention, No Abnormal Bruit, No Mass, Pelvis Stable (Male) Exam: Deferred Back Exam: Normal Inspection, Full Range of Motion Extremities: Other (edema has improved overnight ; 1+ edema bilaterally in lower extremities) Skin: Warm, Dry Neurological: No New Focal Deficit, Other (nurses are concerned about how much information patienti s retaining in regards to medication and diagnosis; will have case management do a mini mental exam. ) Psy/Mental Status: Alert, Normal Affect, Normal Mood - Problem List & Annotations (1) CHF (congestive heart failure) SNOMED Code(s): 37259511 Code(s): I50.9 - HEART FAILURE, UNSPECIFIED Status: Acute Priority: High Current Visit: Yes Onset Date: ~08/02/18 Qualifiers: Heart failure type: combined systolic and diastolic Heart failure chronicity: acute on chronic Qualified Code(s): I50.43 - Acute on chronic combined systolic (congestive) and diastolic (congestive) heart failure Annotation/Comment:: edema has gotten better overnight; still +1 edema. (2) Elevated INR SNOMED Code(s): 626251665 Code(s): R79.1 - ABNORMAL COAGULATION PROFILE Status: Acute Priority: High Current Visit: Yes Onset Date: 08/11/18 Annotation/Comment:: repeat INR rest coumadin (3) Pneumonia SNOMED Code(s): 541474076 Code(s): J18.9 - PNEUMONIA, UNSPECIFIED ORGANISM Status: Acute Priority: High Current Visit: No Onset Date: 08/04/18 Qualifiers: Pneumonia type: due to unspecified organism Laterality: right Lung location: middle lobe of lung Qualified Code(s): J18.1 - Lobar pneumonia, unspecified organism Annotation/Comment:: Will continue vancomycin and start zosyn 3.375 4 times a day IV. We will also add 500mg of flagyl 3 times IV daily. Encourage use of IS. Repeat chest x ray in AM. Lactic acid ordered in AM. - Problem List Review Problem List Initiated/Reviewed/Updated: Yes - My Orders Last 24 Hours: My Active Orders 08/13/18 18:00 Furosemide [Lasix] 40 mg IVPUSH BID Warfarin [Coumadin] 2.5 mg PO DAILY@1800 08/13/18 23:58 Vital Signs [RC] Q8HR 08/14/18 05:11 Chest 2V [CR] Stat
[2018-08-14] MEDS: Sodium Chloride 0.9% 10 ML Syringe FLUSH SCH ×2 (12:00→20:08)
[2018-08-14] MEDS: Piperacillin/Tazobactam 3.375 GM in Sodium Chloride 0.9% 100 ML IV SCH ×2 (12:03→18:22)
[2018-08-14] MEDS: metroNIDAZOLE/Normal Saline 500 MG in Premix Bag 1 BAG IV SCH ×2 (12:43→20:07)
[2018-08-14] MEDS ORDERED: Saliva Substitute Oral Spray 120 ML Bottle MUCMEM PRN (12:48)
[2018-08-14] MEDS: Warfarin 2.5 MG Tab PO SCH (18:21)
[2018-08-14] MEDS: Famotidine 20 MG/2 ML SDV IVPUSH SCH (18:21)
[2018-08-14] MEDS: Sodium Chloride 0.9% 10 ML Syringe FLUSH PRN ×2 (18:21→23:43)
[2018-08-15] MEDS: Albuterol/Ipratropium 3.0-0.5 MG/3 ML Neb Soln NEB SCH ×3 (01:27→14:15)
[2018-08-15] MEDS: Piperacillin/Tazobactam 3.375 GM in Sodium Chloride 0.9% 100 ML IV SCH ×3 (01:27→12:51)
[2018-08-15] MEDS: Sodium Chloride 0.9% 10 ML Syringe FLUSH PRN ×5 (01:30→14:15)
[2018-08-15] MEDS: metroNIDAZOLE/Normal Saline 500 MG in Premix Bag 1 BAG IV SCH ×2 (04:31→14:15)
[2018-08-15 08:06] LABS: CHLORIDE,CL 102 mmol/L (98-107); SODIUM,NA 139 mmol/L (136-145)
[2018-08-15 08:24] VITALS: BP 111/79
[2018-08-15] MEDS: Docusate Sodium 100 MG Cap PO SCH (08:46)
[2018-08-15] MEDS: Metoprolol Succinate 50 MG Tab.ER PO SCH (08:47)
[2018-08-15] MEDS: Pantoprazole 40 MG Vial IVPUSH SCH (08:47)
[2018-08-15] MEDS: Budesonide 0.5 MG/2 ML Neb Susp NEB SCH (08:47)
[2018-08-15] MEDS: Sodium Chloride 0.9% 10 ML Syringe FLUSH SCH (08:48)
[2018-08-15] MEDS: Potassium Chloride 20 MEQ Tab.ER PO SCH (08:48)
[2018-08-15] MEDS: buPROPion 150 MG Tab.SR PO SCH ×2 (08:48→12:50)
[2018-08-15] MEDS: Furosemide 40 MG/4 ML VIAL IVPUSH SCH (08:48)
[2018-08-15] MEDS: Amiodarone 200 MG Tab PO SCH (08:48)
[2018-08-15] MEDS ORDERED: Potassium Chloride 10 MEQ Tab.ER PO SCH (12:00)
--- NOTE | 2018-08-15 12:00 | PCM.DCSUM1 ---
Discharge Summary - Hospital Course Free Text/Narrative:: Patient is a 77-year-old who was admitted to the hospital with CHF pneumonia at this time patient symptoms have worsened with worsening shortness of breath increased difficulty ambulating and a hard time maintaining saturations greater than 92% on 3 L of left at this time I feel the patient is worsening and needs to be transported to a higher level care. Will transfer to [facility] Diagnosis: Stroke: No - Discharge Data Discharge Date: 08/15/18 Discharge Disposition: DC/Tfer to Acute Hospital 02 Condition: Poor - Discharge Diagnosis/Problem(s) (1) CHF (congestive heart failure) SNOMED Code(s): 31846833 ICD Code: I50.9 - HEART FAILURE, UNSPECIFIED Status: Acute Priority: High Current Visit: Yes Onset Date: ~08/02/18 Problem Details: Patient's BMP continuing going down edema +1 we'll continue on diuresis Qualifiers: Heart failure type: combined systolic and diastolic Heart failure chronicity: acute on chronic Qualified Code(s): I50.43 - Acute on chronic combined systolic (congestive) and diastolic (congestive) heart failure (2) Elevated INR SNOMED Code(s): 426740971 ICD Code: R79.1 - ABNORMAL COAGULATION PROFILE Status: Acute Priority: High Current Visit: Yes Onset Date: 08/11/18 Problem Details: repeat INR rest coumadin (3) Pneumonia SNOMED Code(s): 951990217 ICD Code: J18.9 - PNEUMONIA, UNSPECIFIED ORGANISM Status: Acute Priority : High Current Visit: No Onset Date: 08/04/18 Problem Details: Patient today appears increased hernias of breath chest x-ray revealed possible worsening pneumonia at this time I will transfer him to a higher level care for more aggressive therapy Qualifiers: Pneumonia type: aspiration pneumonia Laterality: right Lung location: middle lobe of lung - Patient Summary/Data Consults: Consultations 08/11/18 21:55 OT Evaluation and Treatment [CONS] Routine PT Evaluation and Treatment [CONS] Routine 08/11/18 21:57 Consult to Case Management/Furnace Clerk [CONS] Routine - Patient Instructions Diet: Low Sodium (Soft diet 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) Activity: Bedrest, May Use Bathroom (With assistance), No Strenuous Activities Driving: Do Not Drive - Discharge Plan *PRESCRIPTION DRUG MONITORING PROGRAM REVIEWED*: Not Applicable *COPY OF PRESCRIPTION DRUG MONITORING REPORT IN PATIENT REBECCA: Not Applicable Home Medications: Home Meds Acetaminophen 1,000 mg PO TID PRN 03/14/17 [History] Aspirin [Halfprin] 81 mg PO DAILY 03/14/17 [History] Docusate Sodium 250 mg PO DAILY 03/14/17 [History] Furosemide 20 mg PO 12 03/14/17 [History] Furosemide 40 mg PO QAM 03/14/17 [History] Metoprolol Succinate [Toprol XL] 50 mg PO BEDTIME 03/14/17 [History] Metoprolol Succinate [Toprol XL] 100 mg PO QAM 03/14/17 [History] Multivitamin [Daily Multiple Vitamin] 1 tab PO DAILY 03/14/17 [History] Nitroglycerin [Nitrostat] 0.4 mg SL ASDIRECTED 03/14/17 [History] Omeprazole 20 mg PO DAILY 03/14/17 [History] Potassium Chloride [Klor-Con 10] 10 meq PO DAILY 03/14/17 [History] Warfarin [Coumadin] 2.5 mg PO DAILY 03/14/17 [History] buPROPion [Wellbutrin SR] 150 mg PO BID@,12 03/14/17 [History] Amiodarone [Cordarone] 200 mg PO DAILY 07/14/17 [History] Metolazone [Zaroxolyn] 2.5 mg PO ASDIRECTED 07/14/17 [History] atorvaSTATin [Lipitor] 20 mg PO DAILY 07/14/17 [History] Levofloxacin [Levaquin] 750 mg PO DAILY 08/11/18 [History] Patient Handouts: Heart Failure, [id number] Forms: ED Department Discharge Referrals: Anita Gar PA-C [Primary Care Provider] - - Discharge Summary/Plan Comment DC Time >30 min.: No Discharge Summary/Plan Comment: Patient will be discharged to essential hospital for care of pneumonia and CHF both appear to be worsening at this time - Patient Data Vitals - Most Recent: Last Vital Signs Temp 98.3 F 08/15/18 08:00 Pulse 82 08/15/18 08:47 Resp 18 08/15/18 08:00 BP 111/79 08/15/18 08:47 Pulse Ox 92 L 08/15/18 08:00 Weight - Most Recent: 230 lb 12.8 oz I&O - Last 24 hours: Intake & Output 08/14/18 08/15/18 08/15/18 22:59 06:59 14:59 Intake Total 1050 1120 660 Output Total 400 1250 Balance 650 -130 660 Lab Results - Last 24 hrs: Laboratory Results - last 24 hr 08/14/18 08/15/18 08/15/18 Range/Units 20:40 07:40 07:40 WBC 14.2 H (4.0-10.2) K/uL RBC 5.61 H (4.33-5.41) M/uL Hgb 16.7 (13.1-16.8) g/dL Hct 48.4 (39.0-49.0) % MCV 86.3 (84.0-98.0) fL MCH 29.8 (28.2-33.3) pg MCHC 34.5 (31.7-36.0) g/dL RDW 15.7 H (11.2-14.1) % Plt Count 264 (150-350) K/uL Neut % (Auto) 66.4 (45.0-80.0) % Lymph % (Auto) 19.9 (10.0-50.0) % Trinity % (Auto) 12.0 (2.0-14.0) % Eos % (Auto) 1.3 (0.0-5.0) % Baso % (Auto) 0.4 (0.0-2.0) % Neut # (Auto) 9.43 H (1.40-7.00) K/uL Lymph # (Auto) 2.82 (0.50-3.50) K/uL Trinity # (Auto) 1.70 H (0.00-1.00) K/uL Eos # (Auto) 0.18 (0.00-0.50) K/uL Baso # (Auto) 0.05 (0.00-0.20) K/uL Sodium 139 (136-145) mmol/L Potassium 4.2 (3.5-5.1) mmol/L Chloride 102 (98-107) mmol/L Carbon Dioxide 25.4 (21.0-32.0) mmol/L BUN 17 (7-18) mg/dL Creatinine 0.99 (0.51-1.17) mg/dL Est Cr Clr Drug Dosing 70.86 mL/min Estimated GFR (MDRD) > 60 mL/min Glucose 117 H (74-106) mg/dL Lactic Acid (0.4-2.0) mmol/L Calcium 9.2 (8.5-10.1) mg/dL Total Bilirubin 1.3 H (0.2-1.0) mg/dL AST 74 H (15-37) U/L ALT 103 H (12-78) U/L Alkaline Phosphatase 105 (46-116) IU/L Total Protein 7.6 (6.4-8.2) g/dL Albumin 2.5 L (3.4-5.0) g/dL Random Vancomycin 10.9 ug/mL 08/15/18 Range/Units 07:40 WBC (4.0-10.2) K/uL RBC (4.33-5.41) M/uL Hgb (13.1-16.8) g/dL Hct (39.0-49.0) % MCV (84.0-98.0) fL MCH (28.2-33.3) pg MCHC (31.7-36.0) g/dL RDW (11.2-14.1) % Plt Count (150-350) K/uL Neut % (Auto) (45.0-80.0) % Lymph % (Auto) (10.0-50.0) % Trinity % (Auto) (2.0-14.0) % Eos % (Auto) (0.0-5.0) % Baso % (Auto) (0.0-2.0) % Neut # (Auto) (1.40-7.00) K/uL Lymph # (Auto) (0.50-3.50) K/uL Trinity # (Auto) (0.00-1.00) K/uL Eos # (Auto) (0.00-0.50) K/uL Baso # (Auto) (0.00-0.20) K/uL Sodium (136-145) mmol/L Potassium (3.5-5.1) mmol/L Chloride (98-107) mmol/L Carbon Dioxide (21.0-32.0) mmol/L BUN (7-18) mg/dL Creatinine (0.51-1.17) mg/dL Est Cr Clr Drug Dosing mL/min Estimated GFR (MDRD) mL/min Glucose (74-106) mg/dL Lactic Acid 1.8 (0.4-2.0) mmol/L Calcium (8.5-10.1) mg/dL Total Bilirubin (0.2-1.0) mg/dL AST (15-37) U/L ALT (12-78) U/L Alkaline Phosphatase (46-116) IU/L Total Protein (6.4-8.2) g/dL Albumin (3.4-5.0) g/dL Random Vancomycin ug/mL Med Orders - Current: Current Medications Acetaminophen (Tylenol) 650 mg PO Q4H PRN PRN Reason: Pain/Fever Albuterol (Proventil Neb Soln) 2.5 mg NEB Q2H PRN PRN Reason: Dyspnea Albuterol/Ipratropium (Duoneb 3.0-0.5 Mg/3 Ml) 3 ml NEB Q4HRRT PRN PRN Reason: Dyspnea Albuterol/Ipratropium (Duoneb 3.0-0.5 Mg/3 Ml) 3 ml NEB Q6HRRT [facility] Last Admin: 08/15/18 08:47 Dose: 3 ml Amiodarone HCl (Cordarone) 200 mg PO DAILY [facility] Last Admin: 08/15/18 08:48 Dose: 200 mg Budesonide (Pulmicort) 0.5 mg NEB BIDRT [facility] Last Admin: 08/15/18 08:47 Dose: 0.5 mg Bupropion HCl (Wellbutrin Sr) 150 mg PO BID@08,12 [facility] Last Admin: 08/15/18 08:48 Dose: 150 mg Docusate Sodium (Colace) 200 mg PO DAILY [facility] Last Admin: 08/15/18 08:46 Dose: Not Given Famotidine (Pepcid) 20 mg IVPUSH QPM [facility] Last Admin: 08/14/18 18:21 Dose: 20 mg Furosemide (Lasix) 40 mg IVPUSH BID [facility] Last Admin: 08/15/18 08:48 Dose: 40 mg Metronidazole 500 mg/ Premix 100 mls @ 100 mls/hr IV Q8H [facility] Last Admin: 08/15/18 04:31 Dose: 100 mls/hr Piperacillin Sod/Tazobactam (Sod 3.375 gm/ Sodium Chloride) 100 mls @ 200 mls/ hr IV Q6H [facility] Last Admin: 08/15/18 05:42 Dose: 200 mls/hr Vancomycin HCl 1.25 gm/ Sodium (Chloride) 250 mls @ 135 mls/hr IV Q24H [facility] Last Admin: 08/14/18 23:43 Dose: 135 mls/hr Metoprolol Succinate (Toprol Xl) 50 mg PO BEDTIME [facility] Last Admin: 08/14/18 20:07 Dose: 50 mg Metoprolol Succinate (Toprol Xl) 100 mg PO QAM [facility] Last Admin: 08/15/18 08:47 Dose: 100 mg Pantoprazole Sodium (Protonix Iv) 40 mg IVPUSH Q12H [facility] Last Admin: 08/15/18 08:47 Dose: 40 mg Potassium Chloride (Klor-Con 10) 20 meq PO TID [facility] Saliva Substitute (Luís-Stir Oral [place]) 1 ml MUCMEM ASDIRECTED PRN PRN Reason: dry mouth Last Admin: 08/14/18 14:52 Dose: 1 spray Sodium Chloride (Saline Flush) 10 ml FLUSH ASDIRECTED PRN PRN Reason: Keep Vein Open Last Admin: 08/15/18 05:43 Dose: 10 ml Sodium Chloride (Saline Flush) 10 ml FLUSH Q12H [facility] Last Admin: 08/15/18 08:48 Dose: 10 ml Temazepam (Restoril) 15 mg PO BEDTIME PRN PRN Reason: Insomnia Vancomycin HCl (Pharmacy To Dose - Vancomycin) 1 dose .XX ASDIRECTED [facility] Warfarin Sodium (Coumadin) 2.5 mg PO DAILY@1800 [facility] Last Admin: 08/14/18 18:21 Dose: 2.5 mg Discontinued Medications Docusate Sodium (Colace 50 Mg/5 Ml Liquid) 250 mg PO DAILY [facility] Last Admin: 08/12/18 08:54 Dose: Not Given Famotidine (Pepcid) 40 mg IVPUSH ONETIME ONE Stop: 08/11/18 16:48 Last Admin: 08/11/18 17:48 Dose: 40 mg Famotidine (Pepcid) 20 mg IVPUSH BID [facility] Furosemide (Lasix) 60 mg IVPUSH NOW ONE Stop: 08/11/18 18:23 Last Admin: 08/11/18 22:24 Dose: 60 mg Furosemide (Lasix) 40 mg IVPUSH Q8H [facility] Last Admin: 08/13/18 12:12 Dose: 40 mg Guaifenesin/Dextromethorphan (Mucinex Dm Er 600-30 Mg) 1 tab PO BID NELSY Phytonadione 5 mg/ Sodium (Chloride) 50.5 mls @ 100 mls/hr IV NOW ONE Stop: 08/11/18 18:39 Last Admin: 08/11/18 18:18 Dose: 100 mls/hr Vancomycin HCl 2 gm/ Sodium (Chloride) 500 mls @ 165 mls/hr IV ONETIME ONE Stop: 08/12/18 00:01 Last Admin: 08/11/18 22:23 Dose: 165 mls/hr Vancomycin HCl 1.25 gm/ Sodium (Chloride) 250 mls @ 135 mls/hr IV Q12H [facility] Last Admin: 08/14/18 11:07 Dose: Not Given Phytonadione (Aquamephyton) Confirm Administered Dose 10 mg .ROUTE .STK-MED ONE Stop: 08/11/18 18:21 Last Admin: 08/11/18 19:24 Dose: Not Given Potassium Chloride (Klor-Con M20) 20 meq PO TID [facility] Last Admin: 08/15/18 08:48 Dose: 20 meq
[2018-08-15 12:11] LABS: O2 DELIVERY DEVICE NASAL CANNULA
[2018-08-15 12:14] LABS: O2 FLOW RATE 5 L/min
[2018-08-15 12:15] LABS: BASE EXCESS ARTERIAL -3 mmol/L (-2-3); BICARBONATE,ARTERIAL 20.6 mmol/L (22-26); O2 SATURATION ARTERIAL 91 % (95-98); PCO2 ARTERIAL 29 mmHG (35-45); PO2 ARTERIAL 56 mmHG (80-105)
[2018-08-15] MEDS ORDERED: Iopamidol 755 Mg/ML 100 ML Bottle IVPUSH ONE (12:56)
[2018-08-15] MEDS ORDERED: Iopamidol 755 Mg/ML 100 ML Bottle ONE (13:02)
== END 2018-08-15 14:55 | DRG 177 ==
LOC: LL.ED 16:37 → LL.MS 19:30
PROVIDERS: ADMIT Family Medicine; ATTEND Family Medicine
DX: J69.0 Pneumonitis due to inhalation of food and vomit (principal); I50.43 Acute on chronic combined systolic (congestive) and diastolic (congestive) heart failure; Q39.0 Atresia of esophagus without fistula; E87.2 Acidosis; I25.810 Atherosclerosis of coronary artery bypass graft(s) without angina pectoris; J18.1 Lobar pneumonia, unspecified organism; E87.1 Hypo-osmolality and hyponatremia; I42.9 Cardiomyopathy, unspecified; I11.0 Hypertensive heart disease with heart failure; R79.1 Abnormal coagulation profile; J43.1 Panlobular emphysema; I48.2 Chronic atrial fibrillation; M15.0 Primary generalized (osteo)arthritis; R29.6 Repeated falls; F41.8 Other specified anxiety disorders; R79.89 Other specified abnormal findings of blood chemistry; K21.9 Gastro-esophageal reflux disease without esophagitis; E88.09 Other disorders of plasma-protein metabolism, not elsewhere classified; N28.9 Disorder of kidney and ureter, unspecified; H91.90 Unspecified hearing loss, unspecified ear; H54.7 Unspecified visual loss; K59.09 Other constipation; N40.1 Benign prostatic hyperplasia with lower urinary tract symptoms; N39.498 Other specified urinary incontinence; G89.29 Other chronic pain; M54.9 Dorsalgia, unspecified; M54.2 Cervicalgia; G62.9 Polyneuropathy, unspecified; E66.9 Obesity, unspecified; Z68.33 Body mass index [BMI] 33.0-33.9, adult; Z95.1 Presence of aortocoronary bypass graft; I25.2 Old myocardial infarction; Z87.01 Personal history of pneumonia (recurrent); Z79.899 Other long term (current) drug therapy; Z79.82 Long term (current) use of aspirin; Z79.01 Long term (current) use of anticoagulants
CPT/HCPCS: 36415; 71045; 71046; 71275; 80048; 80053; 80202; 82272; 82550; 82553; 82803; 83605; 83735; 83880; 84153; 84443; 84484; 84550; 85025; 85379; 85610; 85730; 93005; 94640; 96365; 96375; 99285; A9270-GY; C9113; J1940; J2543; J3370; J3430; J3490; J7040; J7050; J7620-GY; Q9967